=== PATIENT | female | born 1935 | race Caucasian/White ===

== ENCOUNTER 2022-10-30 13:47 | Outpatient (CLI) | payer MEDICARE, SELFPAY ==
[2022-10-30 19:50] LABS: Alanine Aminotransferase 20 U/L (6-35); Albumin Level 4.1 g/dL (3.5-5.1); Alkaline Phosphatase 121 U/L (38-126); Anion Gap 2 mmol/L (8-16); Aspartate Amino Transferase 36 U/L (14-36); Bilirubin,Total 0.4 mg/dL (0.2-1.3); Blood Urea Nitrogen 18 mg/dL (7-17); Calcium 8.6 mg/dL (8.4-10.2); Carbon Dioxide 33 mmol/L (22-30); Chloride 100 mmol/L (98-107); Estimated Glomerular Filt Rate > 60; Glucose 91 mg/dL (65-110); Potassium 4.3 mmol/L (3.4-5.0); Sodium 135 mmol/L (137-145)
[2022-10-30 20:01] LABS: Free T4 Free Thyroxine 1.57 ng/mL (0.78-2.19)
[2022-10-30 20:07] LABS: Thyroid Stimulating Hormone 0.907 uIU/mL (0.465-4.680)
== END 2022-10-30 13:48 | disposition home or self-care (01) ==
LOC: ANHGOSHLAB 13:50
PROVIDERS: PCP Internal Medicine Endocrinology, Diabetes & Metabolism; Visit Provider Family Medicine
DX: E07.9 Disorder of thyroid, unspecified (principal); Z79.899 Other long term (current) drug therapy
CPT/HCPCS: 36415; 80053; 84439; 84443

== ENCOUNTER → 2022-10-30 14:02 | Outpatient (CLI) | payer MEDICARE, SELFPAY ==
--- NOTE | ~2022-10-30 | XR_ITS ---
EXAMINATION: XR chest 2V DATE: 10/30/2022 14:20 INDICATION: Cough. TECHNIQUE: Frontal and lateral views of the chest were obtained. COMPARISON: Chest 2 views 04/25/2015 FINDINGS: There is mild scarring at the lung apices. There are airspace opacities in left lower lung zone. There is blunting of left posterior costophrenic angle. No pneumothorax. The heart size is norm al. There are changes of anterior fusion procedure in cervical spine. IMPRESSION: 1. Airspace opacities in left lower lung zone, consistent with atelectasis versus pneumonia. 2. Blunting of left posterior costophrenic angle, consistent with scarring versus tiny pleural effusi on. Reviewed, dictated and finalized at location E. IMPRESSION: 1. Airspace opacities in left lower lung zone, consistent with atelectasis vers us pneumonia. 2. Blunting of left posterior costophrenic angle, consistent with scarring vers us tiny pleural effusion.
== END ==
PROVIDERS: PCP Family Medicine; Visit Provider Family Medicine
DX: R05.9 Cough, unspecified (principal); R91.8 Other nonspecific abnormal finding of lung field
CPT/HCPCS: 71046

== ENCOUNTER → 2022-12-09 09:15 | Outpatient (CLI) | payer MEDICARE, SELFPAY ==
--- NOTE | ~2022-12-09 | XR_ITS ---
XR chest 2V 12/09/2022 09:29 Indication: Follow-up pneumonia Procedure: 2 view chest Comparison: 10/30/2022 and 04/25/2015 Findings: Heart size normal. There is left basilar atelectasis/scarring. There is scoliosis. No acute focal pneumonia, edema or effusion. No acute osseous abnormality. Impression: 1: No acute cardiopulmonary disease. 2: Stable left basilar atelectasis/scarring. Reviewed, dictated and finalized at location B. Impression: 1: No acute cardiopulmonary disease. 2: Stable left basilar atelectasis/scarring.
== END ==
PROVIDERS: PCP Family Medicine; Visit Provider Family Medicine
DX: J18.9 Pneumonia, unspecified organism (principal); J98.11 Atelectasis
CPT/HCPCS: 71046

== ENCOUNTER 2023-02-10 09:01 | Outpatient (CLI) | payer MEDICARE, SELFPAY | END 2023-02-10 09:02 | disposition home or self-care (01) | PROVIDERS: PCP Family Medicine; Visit Provider Otolaryngology | DX: Z46.1 Encounter for fitting and adjustment of hearing aid (principal) | CPT/HCPCS: 99199 ==

== ENCOUNTER 2023-03-29 09:03 | Outpatient (CLI) | payer MEDICARE, SELFPAY | END 2023-03-29 09:04 | disposition home or self-care (01) | LOC: ANHAUDIO 09:04 | PROVIDERS: PCP Family Medicine; Visit Provider Otolaryngology | DX: Z46.1 Encounter for fitting and adjustment of hearing aid (principal) | CPT/HCPCS: 92557; 92567 ==

== ENCOUNTER 2023-03-31 10:25 | Outpatient (CLI) | payer MEDICARE, SELFPAY ==
[2023-03-31 12:37] LABS: Hematocrit 39.5 % (37.0-47.0); Hemoglobin 12.4 g/dL (12.0-15.0); Mean Corpuscular HGB Conc 31.4 g/dl (32-36); Mean Corpuscular Hemoglobin 30.5 pg (26-34); Mean Corpuscular Volume 97.3 fl (80-100); Mean Platelet Volume 11.6 fl (7.4-10.4); Platelet Count Result 165 k/mm3 (150-375); Red Blood Count 4.06 M/mm3 (4.2-5.4); Red Cell Distribution Width 12.3 % (11.5-14.5); White Blood Count 3.4 K/mm3 (4.5-10.0)
[2023-03-31 12:49] LABS: Alanine Aminotransferase 16 U/L (6-35); Albumin Level 3.9 g/dL (3.5-5.1); Alkaline Phosphatase 97 U/L (38-126); Anion Gap 4 mmol/L (8-16); Aspartate Amino Transferase 46 U/L (14-36); Bilirubin,Total 0.6 mg/dL (0.2-1.3); Blood Urea Nitrogen 16 mg/dL (7-17); Calcium 8.4 mg/dL (8.4-10.2); Carbon Dioxide 29 mmol/L (22-30); Chloride 103 mmol/L (98-107); Cholesterol 177 mg/dL (0-200); Estimated Glomerular Filt Rate > 60; Glucose 78 mg/dL (65-110); HDL Direct 66 mg/dL; Potassium 3.9 mmol/L (3.4-5.0); Sodium 136 mmol/L (137-145); Triglycerides 63 mg/dL (<150)
[2023-03-31 13:00] LABS: LDL Cholesterol Direct 85 mg/dL
[2023-03-31 13:15] LABS: Thyroid Stimulating Hormone 0.948 uIU/mL (0.465-4.680)
== END 2023-03-31 10:26 | disposition home or self-care (01) ==
LOC: ANHGOSHLAB 10:27
PROVIDERS: PCP Family Medicine; Visit Provider Nurse Practitioner
DX: E78.5 Hyperlipidemia, unspecified (principal); E07.9 Disorder of thyroid, unspecified; E55.9 Vitamin D deficiency, unspecified
CPT/HCPCS: 36415; 80053; 80061; 82306; 84443; 85027

== ENCOUNTER 2023-04-22 09:45 | Outpatient (CLI) | payer MEDICARE, SELFPAY ==
--- NOTE | 2023-04-22 09:55 | ECHO_ITS ---
Patient Info Name: Maryjane Blanco Age: 87 years : 1935 Gender: Female Ht: 65 in Wt: 100 lbs BSA: 1.43 m2 HR: 65 bpm BP: 163 / 83 mmHg Technical Quality: Good Exam Date: 04/22/2023 9:59 AM Exam Location: Echo Lab Patient Status: Outpatient Admit Date: 04/22/2023 Staff Ordering Physician: Christelle Santacruz Attending Provider: Christelle Santacruz Referring Physician: Neeta GRANDA; Exam Type: CA echo doppler color flow Study Info Indications R60.9 - Edema, unspecified Complete two-dimensional, color flow and Doppler transthoracic echocardiogram is performed. Summary 1. Complete two-dimensional, color flow and Doppler transthoracic echocardiogram is performed. 2. Left ventricular chamber dimension is moderately enlarged. 3. Entire apex is akinetic. Mid to apical segments circumferentially is hypokinetic. Basal segments have normal contractility. This is suggestive of Takotsubo cardiomyopathy. 4. No apical thrombus. 5. Left ventricular systolic function is moderately reduced, estimated at 35-40%. 6. The left ventricular diastolic function is grade I diastolic dysfunction. 7. E/e' 18 is elevated. 8. Left atrial chamber dimension is mildly enlarged. 9. There is mild aortic valve sclerosis. 10. There is trace aortic valve regurgitation. 11. The mitral valve has moderately calcified annulus. 12. There is trace mitral valve regurgitation. 13. There is mild to moderate tricuspid valve regurgitation. 14. No pulmonary hypertension, estimated pulmonary arterial systolic pressure is 30 mmHg. 15. There is trivial right sided pericardial effusion. Left Ventricle E/e' 18 is elevated. Entire apex is akinetic. Mid to apical segments circumferentially is hypokinetic. Basal segments have normal contractility. This is suggestive of Takotsubo cardiomyopathy. No apical thrombus. Left ventricular chamber dimension is moderately enlarged. Left ventricular systolic function is moderately reduced, estimated at 35-40%. The left ventricular diastolic function is grade I diastolic dysfunction. Right Ventricle Right ventricular chamber dimension is normal. Right ventricular systolic function is normal. Left Atria Left atrial chamber dimension is mildly enlarged. Right Atria Right atrial chamber dimension is normal. Aortic Valve The aortic valve is trileaflet. There is mild aortic valve sclerosis. There is no aortic valve stenosis. There is trace aortic valve regurgitation. Pulmonic Valve There is no pulmonic regurgitation. Mitral Valve The mitral valve has moderately calcified annulus. There is no mitral valve stenosis. There is trace mitral valve regurgitation. Tricuspid Valve There is mild to moderate tricuspid valve regurgitation. No pulmonary hypertension, estimated pulmonary arterial systolic pressure is 30 mmHg. Pericardium/Pleural There is trivial right sided pericardial effusion. Inferior Vena Cava Normal inferior vena cava with >50% collapse upon inspiration consistent with normal right atrial pressure, 5 mmHg. Aorta The aortic root size at the sinus of Valsalva is normal. Left Ventricular Outflow Tract Name Value Normal LVOT 2D LVOT Diameter 2.0 cm LVOT Doppler LVOT Peak Gradient
== END 2023-04-22 09:46 | disposition home or self-care (01) ==
LOC: ANHCARD 09:46
PROVIDERS: PCP Family Medicine; Visit Provider Nurse Practitioner
DX: R93.1 Abnormal findings on diagnostic imaging of heart and coronary circulation (principal); I35.8 Other nonrheumatic aortic valve disorders; I35.1 Nonrheumatic aortic (valve) insufficiency; I34.0 Nonrheumatic mitral (valve) insufficiency; I07.1 Rheumatic tricuspid insufficiency; I31.39 Other pericardial effusion (noninflammatory); I34.81 Nonrheumatic mitral (valve) annulus calcification
CPT/HCPCS: 93306

== ENCOUNTER 2023-06-03 10:29 | Outpatient (CLI) | payer MEDICARE, SELFPAY ==
[2023-06-03 12:33] LABS: Anion Gap 3 mmol/L (8-16); Blood Urea Nitrogen 25 mg/dL (7-17); Calcium 8.8 mg/dL (8.4-10.2); Carbon Dioxide 32 mmol/L (22-30); Chloride 100 mmol/L (98-107); Estimated Glomerular Filt Rate > 60; Glucose 96 mg/dL (65-110); Potassium 4.4 mmol/L (3.4-5.0); Sodium 135 mmol/L (137-145)
== END 2023-06-03 10:30 | disposition home or self-care (01) ==
PROVIDERS: PCP Family Medicine
DX: I42.9 Cardiomyopathy, unspecified (principal)
CPT/HCPCS: 36415; 80048

== ENCOUNTER 2023-06-17 15:43 | Emergency (ER) | payer MEDICARE, SELFPAY ==
--- NOTE | ~2023-06-17 | CT_ITS ---
EXAMINATION: CTA UE RT DATE: 06/17/2023 19:17 INDICATION: Decreased peripheral pulses status post cardiac catheterization TECHNIQUE: Computed tomographic angiography (CTA) of the right upper extremity was performed with 100 mL Omnipque-350 intravenous contrast. Maximum intensity projection 3D-reconstructions of the aorta a nd other arteries were constructed by the technologist on a separate workstation. The dose-length pro duct (DLP) was 261.34 mGy-cm. Automated exposure control and iterative reconstruction technique were employed. COMPARISON: None. FINDINGS: The upper right extremity arterial structures appear to be intact. No contrast extravasatio n is identified. The radial and ulnar arteries are patent at the wrist. IMPRESSION: 1. Unremarkable right upper extremity CTA. Reviewed, dictated and finalized at location F. ING EFFICIENCY COURSE DIRECTOR
[2023-06-17 15:55] VITALS: BP 138/81; PULSE 62; RESP 16; TEMP 36.2; O2SAT 100
--- NOTE | 2023-06-17 17:38 | ED.SKABFB ---
HPI - Skin/Abscess/Foreign Bdy General Chief complaint: Skin/Abscess/Foreign Body <Mireille Dumont PA-C - Last Filed: 06/17/23 21:12> Stated complaint: sent by cardiology <NAHOMI Villanueva Last Filed: 06/17/23 21:12> Time Seen by Provider: 06/17/23 17:09 <NAHOMI Villanueva Last Filed: 06/17/23 21:12> Source: patient <Mireille Dumont PA-C - Last Filed: 06/17/23 21:12> Mode of arrival: ambulatory <NAHOMI Villanueva Last Filed: 06/17/23 21:12> Limitations: no limitations <Mireille Dumont PA-C - Last Filed: 06/17/23 21:12> History of Present Illness HPI narrative: This is a 87 year old female that presents to the ER for pain and swelling at recent cardiac cath site. Reports she had a cardiac cath with her research instrumentation technician at [facility] one week ago. She feels a palpable nodule at the insertion area. Reports bruising and some discomfort to the area as well. Denies decreased ROM or numbness. <NAHOMI Villanueva Last Filed: 06/17/23 21:12> Related Data Home medications: Home Medications Medication Instructions Recorded Confirmed Arteriozyme See Rx Instructions PO .COMPLEX 10/30/22 06/24/23 ascorbic acid (vitamin C) 1,000 mg 1 g PO DAILY 10/30/22 06/24/23 capsule levothyroxine 75 mcg capsule 75 mcg PO DAILY 10/30/22 06/24/23 prednisolone acetate 1 % eye 1 drp RIGHT EYE DAILY 10/30/22 06/24/23 drops,suspension <NAHOMI Villanueva Last Filed: 06/17/23 21:12> Allergies/Adverse reactions: Allergies Allergy/AdvReac Type Severity Reaction Status Date / Time acyclovir Allergy Mild Nausea and Verified 06/24/23 09:58 Vomiting <NAHOMI Villanueva Last Filed: 06/17/23 21:12> Review of Systems Review of Systems: CONSTITUTIONAL: Denies fever SKIN: Denies erythema MUSCULOSKELETAL: Denies joint pain, or myalgia. NEUROLOGIC: Denies numbness, or weakness. <Mireille Dumont PA-C - Last Filed: 06/17/23 21:12> All systems reviewed & are unremarkable except as noted in HPI and below <Mireille Dumont PA-C - Last Filed: 06/17/23 21:12> PMFSH Past Medical History Medical History: Medical History Glaucoma History of hypothyroidism <Mireille Dumont PA-C - Last Filed: 06/17/23 21:12> Family History Family History: Family History Father Hypertension Grandparent Diabetes mellitus <Mireille Dumont PA-C - Last Filed: 06/17/23 21:12> Social History Social History: Social History Smoking status: Never smoker Alcohol intake: current Substance use: never Substance use type: does not use Lack of Transportation: No Lack of Food: Never True Current Housing: I Have Housing Concerned About Future Housing: No Difficulty Paying Gas/Electric Bills: No Difficulty Paying for Meds: No Currently Unemployed: No Education: Master's Degree or Higher Difficulty w/ Childcare or Family Care: No <Mireille Dumont PA-C - Last Filed: 06/17/23 21:12> Exam Narrative: GENERAL: Well-appearing, well-nourished, and in no acute distress. HEAD: Normocephalic, atraumatic. EYES: EOMI. CHEST: No respiratory distress. HEART: Regular rate EXTREMITIES: Normal range of motion. No edema or erythema. Normal radial pulse. Normal sensation. Moderate bruising to the right forearm SKIN: Warm, dry, no rash. NEURO: No focal deficits. Alert and oriented x3. PSYCH: Normal mood and affect <Mireille Dumont PA-C - Last Filed: 06/17/23 21:12> Course Course Emergency Course: Patient updated on workup and agrees with plan of care <Mireille Dumont PA-C - Last Filed: 06/17/23 21:12> Vital Signs Vital signs: Vital Signs Temperature 97.2 F L 06/17/23 15:55 Pulse Rate 62 06/17/23 15:55 Respiratory Rate 16 06/17/23 15:55 Blood Pres
[2023-06-17 18:34] LABS: Basophils Percent Auto 0.7 % (0.2-1.2); Eosinophils Percent Auto 0.7 % (0-4.4); Hematocrit 39.7 % (37.0-47.0); Hemoglobin 12.7 g/dL (12.0-15.0); Immature Granulocyte Absolute 0.02 K/mm3 (0.00-0.031); Immature Granulocyte Percent A 0.3 % (0-0.5); Lymphocytes Percent Auto 19.6 % (18.3-44.2); Mean Corpuscular Hemoglobin 30.2 pg (26-34); Mean Corpuscular Volume 94.3 fl (80-100); Mean Platelet Volume 10.6 fl (7.4-10.4); Monocytes Absolute Auto 0.6 K/mm3 (0.1-0.6); Monocytes Percent Auto 9.8 % (2.6-8.5); Neutrophils Absolute Auto 4.2 K/mm3 (1.3-6.7); Neutrophils Percent Auto 68.9 % (45.5-73.1); Platelet Count Result 176 k/mm3 (150-375); Red Blood Count 4.21 M/mm3 (4.2-5.4); Red Cell Distribution Width 11.9 % (11.5-14.5); White Blood Count 6.1 K/mm3 (4.5-10.0)
[2023-06-17 18:45] LABS: Prothrombin Time 13.3 Seconds (11.1-14.7)
[2023-06-17 18:46] LABS: Partial Thromboplastin Time 36.4 SECONDS (22.3-36.8)
[2023-06-17 18:48] LABS: Anion Gap 4 mmol/L (8-16); Blood Urea Nitrogen 18 mg/dL (7-17); Calcium 8.7 mg/dL (8.4-10.2); Carbon Dioxide 26 mmol/L (22-30); Chloride 102 mmol/L (98-107); Estimated CRCL calculation 47 ml/min; Estimated Glomerular Filt Rate > 60; Glucose 88 mg/dL (65-110); Potassium 4.2 mmol/L (3.4-5.0); Sodium 132 mmol/L (137-145)
[2023-06-17 20:05] VITALS: BP 131/85; PULSE 67; RESP 14; O2SAT 99
== END 2023-06-17 21:19 | disposition home or self-care (01) ==
PROVIDERS: Emergency Provider Physician Assistant; PCP Family Medicine
DX: L76.32 Postprocedural hematoma of skin and subcutaneous tissue following other procedure (principal); H40.9 Unspecified glaucoma; E03.9 Hypothyroidism, unspecified
CPT/HCPCS: 36415; 73206; 80048; 85025; 85610; 85730; 99284; Q9967

== ENCOUNTER 2023-06-22 08:42 | Outpatient (CLI) | payer MEDICARE, SELFPAY ==
--- NOTE | 2023-06-22 | ECHO_ITS ---
Patient Info Name: Maryjane Blanco Age: 87 years : 1935 Gender: Female Ht: 65 in Wt: 100 lbs BSA: 1.43 m2 HR: 61 bpm BP: 136 / 73 mmHg Heart Rhythm: Sinus Rhythm Technical Quality: Good Exam Date: 06/22/2023 9:09 AM Exam Location: Echo Lab Patient Status: Outpatient Admit Date: 06/22/2023 Staff Ordering Physician: Jeannette, Sarahi Gil Substation Wireman: Attending Provider: Jeannette, Sarahi Gil Referring Physician: UNKNOWN, Jeannette; Exam Type: CA echo doppler color flow Study Info Indications I42.8 - Other cardiomyopathies Complete two-dimensional, color flow and Doppler transthoracic echocardiogram is performed. Summary 1. Complete two-dimensional, color flow and Doppler transthoracic echocardiogram is performed. 2. Left ventricular chamber dimension is normal. 3. Left ventricular systolic function is normal, estimated at 65-70%. 4. The left ventricular diastolic function is grade I diastolic dysfunction. 5. Right ventricular systolic function is normal. 6. 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 7. There is mild tricuspid valve regurgitation. 8. There is small pericardial effusion. Left Ventricle Left ventricular chamber dimension is normal. Left ventricular systolic function is normal, estimated at 65-70%. The left ventricular diastolic function is grade I diastolic dysfunction. Global longitudinal strain is normal at -21 %. Right Ventricle Right ventricular chamber dimension is normal. Right ventricular systolic function is normal. Left Atria Left atrial chamber dimension is normal. Right Atria Right atrial chamber dimension is normal. Atrial Septum Intact interatrial septum visualized by color flow imaging. 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 The aortic valve is trileaflet. There is no aortic valve stenosis. There is no aortic valve regurgitation. There is moderate aortic valve calcification. Pulmonic Valve The pulmonic valve is not well visualized. There is trace pulmonic regurgitation. Mitral Valve There is trace mitral valve regurgitation. The mitral valve annulus is moderately calcified. Tricuspid Valve There is mild tricuspid valve regurgitation. Pericardium/Pleural There is small pericardial effusion. Inferior Vena Cava Normal inferior vena cava with >50% collapse upon inspiration consistent with normal right atrial pressure, 3 mmHg. Aorta The aortic root size at the sinus of Valsalva is normal. Left Ventricular Outflow Tract Name Value Normal LVOT 2D LVOT Diameter 2.0 cm LVOT Doppler LVOT Peak Gradient 3 mmHg LVOT Mean Gradient 2 mmHg LVOT VTI 22 cm LVOT VTI/AV VTI Ratio 0.7 LVOT Stroke Volume 71 ml LVOT CO 3.7 l/min LVOT CI 2.6 l/min/m2 Pulmonic Valve Name Value Normal PV Doppler
== END 2023-06-22 08:43 | disposition home or self-care (01) ==
PROVIDERS: PCP Family Medicine
DX: R06.02 Shortness of breath (principal); R93.1 Abnormal findings on diagnostic imaging of heart and coronary circulation; I42.9 Cardiomyopathy, unspecified; I36.1 Nonrheumatic tricuspid (valve) insufficiency; I31.39 Other pericardial effusion (noninflammatory)
CPT/HCPCS: 93306

== ENCOUNTER 2023-11-01 12:50 | Emergency (ER) | payer MEDICARE, SELFPAY ==
--- NOTE | ~2023-11-01 | XR_ITS ---
Clinical Indication: Cough PA and lateral views of the chest: Comparison: 12/09/2022 Findings: There is COPD pattern of the lungs. Stable linear scarring left lung base. No acute pulmona ry abnormality evident.. Cardiomediastinal silhouette is within normal limits. Bones and soft tissue s are unremarkable. Impression: COPD and stable linear scarring left lung base. Reviewed, dictated and finalized at location . Impression: COPD and stable linear scarring left lung base.
[2023-11-01 13:04] VITALS: BP 137/77; PULSE 62; RESP 16; TEMP 37.2; O2SAT 98
--- NOTE | 2023-11-01 13:16 | ED.URI ---
HPI - URI/Sore Throat General Chief Complaint: Upper Respiratory Infection Stated Complaint: Sore Throat Time Seen by Provider: 11/01/23 13:02 Source: patient, RN notes reviewed and old records reviewed Mode of arrival: ambulatory Limitations: no limitations History of Present Illness HPI Narrative: Patient presents today with acute on chronic cough. States she has been coughing since she had COVID a few years ago, but symptoms have worsened over the past week. Her cough is occasionally productive. She also reports some rhinorrhea. Denies shortness of breath or fever. States she has been evaluated by her PCP for this chronic cough a few years ago and was told she had some postnasal drainage. She has been taking vitamin-C without relief. Denies history of asthma or COPD. She is a nonsmoker. Related Data Home Medications Medication Instructions Recorded Confirmed Arteriozyme See Rx Instructions PO .COMPLEX 10/30/22 11/01/23 ascorbic acid (vitamin C) 1,000 mg 1 g PO DAILY 10/30/22 11/01/23 capsule prednisolone acetate 1 % eye 1 drp RIGHT EYE DAILY 10/30/22 11/01/23 drops,suspension furosemide 20 mg tablet 20 mg PO DAILY 09/28/23 11/01/23 losartan 25 mg tablet 12.5 mg PO DAILY 09/28/23 11/01/23 dorzolamide-timolol (PF) 2 %-0.5 % 1 drp EACH EYE BID 11/01/23 11/01/23 eye drops in a dropperette Allergies Allergy/AdvReac Type Severity Reaction Status Date / Time acyclovir Allergy Mild Nausea and Verified 11/01/23 13:00 Vomiting Review of Systems Review of Systems: CONSTITUTIONAL: Denies body aches, fever, chills, or sweats. EYES: Denies visual changes, redness, or discharge. ENT: Denies congestion, sore throat, or otalgia.+ rhinorrhea CARDIOVASCULAR: Denies chest pain, palpitations, or edema. RESPIRATORY: Denies dyspnea.+ cough GASTROINTESTINAL: Denies abdominal pain, nausea, vomiting, or diarrhea. GENITOURINARY: Denies dysuria or hematuria. SKIN: Denies rash, itching, or wounds. MUSCULOSKELETAL: Denies back pain, joint pain, or myalgia. NEUROLOGIC: Denies headache, numbness, tingling, or weakness. PSYCH: Denies depression or anxiety. PMFSH Past Medical History Medical History Glaucoma History of hypothyroidism Family History Family History Father Hypertension Grandparent Diabetes mellitus Social History Social History Smoking status: Former smoker (for 1 year) Alcohol intake: current Substance use: never Substance use type: does not use Lack of Transportation: No Lack of Food: Never True Current Housing: I Have Housing Concerned About Future Housing: No Difficulty Paying Gas/Electric Bills: No Difficulty Paying for Meds: No Currently Unemployed: No Education: Master's Degree or Higher Difficulty w/ Childcare or Family Care: No Comments At time of signature, I have reviewed and agree with nursing past medical, surgical, social and family history unless otherwise noted. Please see nursing chart for further information. There is no relevant family history pertinent to the presenting complaint Exam Narrative: GENERAL: Well-appearing, well-nourished, and in no acute distress. HEAD: Normocephalic, atraumatic. EYES: EOMI. No redness or drainage. Conjunctivae normal. ENT: Mucous membranes pink and moist. Nares clear. No rhinorrhea. Throat normal. Uvula midline. Wears hearing aids NECK: Normal AROM. Supple. No lymphadenopathy. CHEST: No respiratory distress. Slight crackle in the left lower lobe, otherwise clear HEART: Regular rate and rhythm. No murmur appreciated. Normal peripheral pulses. EXTREMITIES: Normal range of motion. No edema. SKIN: Warm, dry, no rash. Capillary refill normal. Normal skin turgor. NEURO: No focal deficits. Alert and oriented x3. Gait steady. PSYC
== END 2023-11-01 13:41 | disposition home or self-care (01) ==
PROVIDERS: Emergency Provider Nurse Practitioner; PCP Family Medicine
DX: J40 Bronchitis, not specified as acute or chronic (principal); Z87.891 Personal history of nicotine dependence; H40.9 Unspecified glaucoma; E03.9 Hypothyroidism, unspecified
CPT/HCPCS: 71046; 99213; G0463

== ENCOUNTER 2023-12-24 08:40 | Outpatient (CLI) | payer MEDICARE, SELFPAY ==
--- NOTE | ~2023-12-24 | XR_ITS ---
MODIFIED ESOPHAGRAM HISTORY: Dysphagia. TECHNIQUE: Modified barium esophagram was performed on 12/24/2023. I administered fluoroscopy and perfo rmed the exam with speech pathologist. Patient was seated for lateral fluoroscopic imaging for inges tion of thin liquids, pudding, solids and quantified amounts, followed by thin liquids in uncontrolle d amounts. This was recorded on tape. A single fluoroscopic spot image was also recorded. The DAP for this procedure was 1.781 Gycm2. The amount of fluoroscopy time used during this procedure was 3.0 mi nutes. FINDINGS: Oral stage: Adequate function. Pharyngeal stage: Reduced laryngeal elevation and abduction. Reduced tongue base retraction and phary ngeal squeeze. There is vallecular residue. There is laryngeal penetration and aspiration. Cervical/esophageal stage: Adequate function. IMPRESSION: Pharyngeal dysphagia with laryngeal penetration and aspiration. Please correlate with sp eech pathologist findings and specific feeding recommendations. Reviewed, dictated and finalized at location A. IMPRESSION: Pharyngeal dysphagia with laryngeal penetration and aspiration. Pl ease correlate with speech pathologist findings and specific feeding recommenda tions.
--- NOTE | 2023-12-24 13:57 | REHSTMBS ---
Assessment and note entered by Courtney Huang, PSYCHOLOGIST ENGINEERING Modified Barium Swallow Evaluation Feeding Type Recommended Oral Food Consistency Regular, Level 7 Liquid Consistency Thin (0) Treatment Recommendations Effortful Swallow,Laryngeal Elevation Exerc, Sarika Maneuver,Supraglottic Swallow,Tongue Base Exercise,Vocal Fold Adduction Exer ST Clinical Summary MODIFIED BARIUM SWALLOW STUDY This patient was seen for a Modified Barium Swallow study at the request of her physician. Patient reports that she had neck surgery approximately twenty years ago, and that she noticed swallowing problems began after that surgery. She states that she feels she gets choked on solid foods, using sandwich meat/bread as an example, and that her has had to use the Heimlich maneuver to clear her airway. She denies difficulty swallowing liquids and denied coughing during meals. Patient admitted to recently having bronchitis that causes her to cough. When asked about her soft voice/low vocal volume, she stated she always has been soft spoken. Patient was viewed in the lateral position to the level of C5/C6. She was presented with small amounts of thin liquid contrast medium, and then uncontrolled thin liquid per cup, pudding mixed with semi-solid contrast medium, and then fruit cocktail pieces and neal cracker pieces both coated with the semi-solid mixture. Patient exhibited consistent trace penetration into the airway with aspiration on uncontrolled thin liquids with additional trace penetration reaching the entrance to the airway on the pudding consistency. Patient did feel the liquid penetration, causing a reflexive cough but this did not fully clear the airway. Throughout this evaluation patient exhibited significant vallecular residue with minimal clearing during the current swallow. The cricopharyngeal/upper esophageal area appeared slightly different than average but unsure if that is due to the surgery. Impairments: Oral Stage: None. Pharyngeal Stage:
== END 2023-12-24 08:41 | disposition home or self-care (01) ==
LOC: ANHIMG 08:42
PROVIDERS: PCP Family Medicine; Visit Provider Nurse Practitioner Family
DX: R13.13 Dysphagia, pharyngeal phase (principal)
CPT/HCPCS: 92611

== ENCOUNTER 2024-01-29 12:56 | Outpatient (CLI) | payer MEDICARE, SELFPAY ==
[2024-01-29 13:33] LABS: Hematocrit 37.5 % (37.0-47.0); Hemoglobin 12.3 g/dL (12.0-15.0); Mean Corpuscular HGB Conc 32.8 g/dl (32-36); Mean Corpuscular Hemoglobin 31.4 pg (26-34); Mean Corpuscular Volume 95.7 fl (80-100); Mean Platelet Volume 10.9 fl (7.4-10.4); Platelet Count Result 169 k/mm3 (150-375); Red Blood Count 3.92 M/mm3 (4.2-5.4); Red Cell Distribution Width 12.8 % (11.5-14.5); White Blood Count 4.5 K/mm3 (4.5-10.0)
[2024-01-29 13:48] LABS: Alanine Aminotransferase 13 U/L (6-35); Albumin Level 3.9 g/dL (3.5-5.1); Alkaline Phosphatase 127 U/L (38-126); Anion Gap 9 mmol/L (4-12); Aspartate Amino Transferase 30 U/L (14-36); Bilirubin,Total 0.7 mg/dL (0.2-1.3); Blood Urea Nitrogen 19 mg/dL (7-17); Calcium 8.7 mg/dL (8.4-10.2); Carbon Dioxide 29 mmol/L (22-30); Chloride 99 mmol/L (98-107); Cholesterol 175 mg/dL (0-200); Estimated Glomerular Filt Rate > 60; Glucose 77 mg/dL (65-110); HDL Direct 68 mg/dL; Potassium 3.9 mmol/L (3.4-5.0); Sodium 137 mmol/L (137-145); Triglycerides 70 mg/dL (<150)
[2024-01-29 13:58] LABS: LDL Cholesterol Direct 81 mg/dL
[2024-01-29 14:04] LABS: Free T4 Free Thyroxine 1.86 ng/mL (0.78-2.19); Vitamin D 25 Hydroxy 46.7 ng/mL
[2024-01-29 14:18] LABS: Thyroid Stimulating Hormone 0.117 uIU/mL (0.465-4.680)
== END 2024-01-29 12:57 | disposition home or self-care (01) ==
LOC: ANHLAB 13:00
PROVIDERS: PCP Family Medicine; Visit Provider Nurse Practitioner
DX: E55.9 Vitamin D deficiency, unspecified (principal); R60.9 Edema, unspecified; I51.9 Heart disease, unspecified
CPT/HCPCS: 36415; 80053; 80061; 82306; 84439; 84443; 85027

== ENCOUNTER 2024-03-02 13:15 | Outpatient (RCR) | payer MEDICARE, SELFPAY ==
--- NOTE | 2024-02-02 10:52 | STOPEVAL1 ---
Assessment and note entered by Courtney Huang, STATE DIRECTOR Reported Pain Level Pain Score 0: Self Report Assessment ST Clinical Summary This patient is being seen today as a follow up to a Modified Barium Swallow study that was performed on December 24, 2023 which revealed penetration on thin liquids and significant vallecular residue after swallowing. Direct Speech Therapy was recommended at that time for strengthening exercises and instruction of safe swallowing strategies. At that time, patient reported: history of neck surgery approximately twenty years ago, and that she noticed swallowing problems began after that surgery. She stated that she feels she gets choked on solid foods, using sandwich meat/bread as an example, and that her has had to use the Heimlich maneuver to clear her airway. She denied difficulty swallowing liquids and denied coughing during meals. Patient admitted to recently having bronchitis that causes her to cough. When asked about her soft voice/low vocal volume, she stated she always has been soft spoken. She reports that in spite of history of softer voice, there have been times when her firends and relatives have told her she is speaking so softly, they cannot hear her which is not normal for her. Today the patient was presented with water only and no signs of penetration were noted. She had been instructed in the use of head flexion and she stated that she has used head flexion at times but not consistently. Patient was instructed in the use of safe swallowing techniques and head flexion. Patient was also instructed in the use of three initial swallowing strengthening exercises, one laryngeal elevation exercises, one laryngeal adduction exercise, and one base of tongue retraction exercise. She voiced and demonstrated good understanding and agreed to continue. Patient's voice was also evaluated and she exhibited moderate dysphonia characterized as pitch breaks and hoarse voice during sustaining of ah sound; able to sustain x6 seconds. Pitch range and vocal loudness were within normal limits. Results of Modified Barium Swallow study and today 's voice evaluation indicate patient should consider direct Speech Therapy. Patient is agreeable to twice weekly for 3-4 weeks with therapy addressing swallowing strengthening exercises and tasks to improve voice quality. Patient was in agreement with plan of care. Thank you for this referral. Plan of Care Interventions Treatment of Swallowing D,Treatment of Voice ST Services Indicated Yes Treatment Frequency and 2x/week x 8 visits. Duration These treatments will address the objective and functional deficits as defined above. The patient will be advanced safely and appropriately in order for the patient to progress towards his/her prior level of function. Additional exercises will be introduced and as well as a comprehensive home exercise program upon discharge, if needed, ?to ensure carryover of functional gains achieved in the clinic. This treatment plan has been reviewed and agreement upon by the patient.
--- NOTE | 2024-02-02 10:53 | STOPEVAL1 ---
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 Direct Speech Therapy was recommended at that time for strengthening exercises and instruction of safe swallowing strategies. At that time, patient reported: history of neck surgery approximately twenty years ago, and that she noticed swallowing problems began after that surgery. She stated that she feels she gets choked on solid foods, using sandwich meat/bread as an example, and that her has had to use the Heimlich maneuver to clear her airway. She denied difficulty swallowing liquids and denied coughing during meals. Patient admitted to recently having bronchitis that causes her to cough. When asked about her soft voice/low vocal volume, she stated she always has been soft spoken. She reports that in spite of history of softer voice, there have been times when her friends and relatives have told her she is speaking so softly, they cannot hear her which is not normal for her. Today the patient was presented with water only and no signs of penetration were noted. She had been instructed in the use of head flexion and she stated that she has used head flexion at times but not consistently. Patient was instructed in the use of safe swallowing techniques and head flexion. Patient was also instructed in the use of three initial swallowing strengthening exercises, one laryngeal elevation exercises, one laryngeal adduction exercise, and one base of tongue retraction exercise. She voiced and demonstrated good understanding and agreed to continue. Patient's voice was also evaluated and she exhibited moderate dysphonia characterized as pitch breaks and hoarse voice during sustaining of ah sound; able to sustain x6 seconds. Pitch range and vocal loudness were within normal limits. Results of Modified Barium Swallow study and today's voice evaluation indicate patient should consider direct Speech Therapy. Patient is agreeable to twice weekly for 3-4 weeks with therapy addressing swallowing strengthening exercises and tasks to improve voice quality. Patient was in agreement with plan of care. Thank you for this referral. Plan of Care Interventions Treatment of Swallowing D,Treatment of Voice ST Services Indicated Yes Treatment Frequency and 2x/week x 8 visits. Duration These treatments will address the objective and functional deficits as defined above. The patient will be advanced safely and appropriately in order for the patient to progress towards his/her prior level of function. Additional exercises will be introduced and as well as a comprehensive home exercise program upon discharge, if needed, ?to ensure carryover of functional gains achieved in the clinic. This treatment plan has been reviewed and agreement upon by the patient.
--- NOTE | 2024-02-04 08:51 | PCSTNOTE ---
The patient treatment was not able to be completed on 02/04/24 due to patient not feeling well today. Will plan to continue treatment per plan of care.
--- NOTE | 2024-02-04 08:55 | OPREHPOC ---
Outpatient Therapy Plan of Care This is a Multidisciplinary Plan of Care that may contain components documented by all disciplines (PT, OT, and ST.) ST Problem 1 ST Problem #[address] Goal 1 Goal / Goal Update 1. Therapist will provide patient with safe swallowing techniques, diet and liquid consistencies, options for safe swallowing, and compensatory strategies related to safe swallowing . 2. Patient will voice understanding of safe swallowing techniques, diet and liquid consistencies, options for safe swallowing, and compensatory strategies related to safe swallowing . Target Visit [address] Problem #[address] Goal 1 Goal / Goal Update 1. The patient will receive a copy of evidence- based exercises for swallow improvement to complete 10x2/day outside of therapy visits. 2. The patient will complete laryngeal adduction exercises 10 repetitions per visit to improve airway closure and reduce instances of aspiration as evidenced on repeat MBS when appropriate. 3. Patient will complete laryngeal elevation exercises 10 reps each with good strength to reduce laryngeal penetration and/or pyriform sinus residue by improving epiglottal inversion and airway protection. 4. Patient will complete base of tongue retraction, hard effortful swallows, and swallows with chin tuck against resistance exercises 10 reps each with good strength in order to reduce/eliminate instances of aspiration during the swallow by squeezing of the base of tongue in order to invert the epiglottis and close the airway evidenced on repeat MBS when appropriate. Target Visit [address] Problem #[address] Goal 1 Goal / Goal Update 1. Patient will participate in tasks to increase the strength of the vocal cords while maintaining appropriate use of vocal cords/avoiding over-use or abusive voice behaviors 90% of the time in order to improve the quality of the voice to avoid pitch breaks and maintain appropriate loudness. Target Visit 9
--- NOTE | 2024-03-02 16:37 | STOPDC ---
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 Patient was instructed in safe swallowing techniques, swallowing strengthening exercises including laryngeal adduction, laryngeal elevation, base of tongue retraction, hard, effortful swallows, Masaka procedure, Sarika maneuver, and swallows with chin tuck against resistance. Patient exhibited good ability to complete exercises and voiced that she was completing them at home. By time of discharge, she was reporting no concerns with getting choked or tickled when consuming food/liquid, and she stated both she and her felt her voice was louder, was reporting that he was able to hear her better by time of discharge. Of note is when patient spoke at a slightly higher pitch, 2-3 steps up a scale, her voice cleared and no longer sounded raspy however her first inclination is to speak at the lower pitch level/range which contributed to raspy vocal quality. By time of discharge patient was demonstrating improved ability to speak at the higher level which reduced the raspy, hoarse vocal quality observed at the beginning of treatment. She was discharged today with home program in place, good ability to complete all exercises, and satisfaction with treatment program. No further ST indicated at this time. Patient is welcome to return at any time she has concerns with her swallowing/voicing skills. Plan of Care ST Services Indicated Yes
== END 2024-03-10 11:06 | disposition home or self-care (01) ==
LOC: ANHST 13:15
PROVIDERS: PCP Family Medicine; Visit Provider Nurse Practitioner Family
DX: R13.10 Dysphagia, unspecified (principal)
CPT/HCPCS: 92526; 92610

== ENCOUNTER 2024-03-28 11:01 | Outpatient (RCR) | payer MEDICARE, SELFPAY | END 2024-03-28 23:59 | disposition home or self-care (01) | LOC: ANHAUDIO 11:01 | PROVIDERS: PCP Family Medicine | DX: Z46.1 Encounter for fitting and adjustment of hearing aid (principal) | CPT/HCPCS: 92592 ==

== ENCOUNTER 2024-03-31 09:14 | Outpatient (CLI) | payer MEDICARE, SELFPAY ==
[2024-03-31 14:11] LABS: Free T4 Free Thyroxine 1.42 ng/dL (0.78-2.19)
== END 2024-03-31 09:15 | disposition home or self-care (01) ==
PROVIDERS: PCP Family Medicine; Visit Provider Nurse Practitioner
DX: E07.9 Disorder of thyroid, unspecified (principal)
CPT/HCPCS: 36415; 84439; 84443

== ENCOUNTER 2024-05-31 09:00 | Outpatient (CLI) | payer MEDICARE, SELFPAY ==
--- OUTSIDE RECORDS SUMMARY | 2024-05-31 09:39 | XMS_ITS | Clinical Summary ---
Author Organization [facility] Address [address] [place] [address] Phone Care Team Providers Care Jewellery Designer Name Role Phone Roxann Albarran Kristal Primary Care Provider [phone] Allergies Active Allergy Reactions Criticality Noted Date Comments Acyclovir Nausea only Low 09/27/2017 GI distress Wheat Headache Low 12/17/2022 Upset stomach Medications vit O-hltateangx-a ioflavonoids 500-100-100 mg tabletIndicati ons:supplement Take 1 tablet by mouth every morning Active levothyroxine (SYNTHROID) 75 mcg tablet Take 1 tablet (75 mcg total) by mouth daily 90 tablet 3 3 Active Additional Information Patient taking differently:75 mcg oralDaily before breakfast, Indications: hypothyroidism, Informant: Self, Reported on 12/17/2022 metoprolol XL (TOPROL-XL) 25 mg extended release tablet Take 0.5 tablets (12.5 mg total) by mouth daily 15 tablet 11 4 Active Additional Information Patient not taking.Reported on 12/09/2023 furosemide (LASIX) 20 mg tablet Take 1 tablet (20 mg total) by mouth daily 30 tablet 11 4 Active mupirocin (BACTROBAN) 2 % ointment 4 Active prednisoLONE acetate (PRED FORTE) 1 % ophthalmic suspension Administer 1 drop into the right eye daily 5 mL 3 4 Active dorzolamide-ti moloL (Cosopt) 22.3-6.8 mg/mL ophthalmic solution Administer 1 drop into the right eye 2 (two) times a day 10 mL 11 4 Active benzonatate (TESSALON) 200 mg capsule TAKE 1 CAPSULE BY MOUTH TWICE DAILY NEEDED FOR COUGH 4 Active levothyroxine (SYNTHROID) 50 mcg tablet Take 1 tablet (50 mcg total) by mouth daily 4 Active losartan (COZAAR) 25 mg tablet Take 0.5 tablets (12.5 mg total) by mouth daily 45 tablet 3 5 Active losartan (COZAAR) 25 mg tablet Take 0.5 tablets (12.5 mg total) by mouth daily 45 tablet 3 4 05/23/19 25 Discontin ued(Reord er) Active Problems Problem Noted Date Diagnosed Date 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 Cardiomyopathy 05/25/2023 Assessment & Plan (12/09/2023 10:11 AM CDT): HFimpEF. NICM with improved LVEF, 65-70%. Stable NYHA class II findings with BLE edema. She is feeling well today. We made no changes. SBP at home in the 130s, remain off metoprolol-improved fatigue with discontinuing. Continue losartan 25 mg daily and lasix 20 mg daily. Decreased cardiac ejection fraction 05/25/2023 Abnormal echocardiogram 05/25/2023 Stable angina 05/25/2023 Encounter for Medicare annual wellness exam 06/18 Diplopia 11/07/2021 Assessment & Plan (11/07/2021 9:51 AM CDT): Likely SES, no palsy. Adjusted prism, pt saw single in office. Trial frames new prism/Rx, pt acceptance Irregular astigmatism of both eyes 11/07/2021 Assessment & Plan (11/07/2021 9:52 AM CDT): best-corrected visual acuity (BVA) improves w refraction - release updated glasses Rx Primary hypothyroidism 07/03/2021 Vertigo 07/03/2021 Primary open angle glaucoma (POAG) of right eye, severe stage 11/26/2019 Assessment & Plan (05/05/2024 10:43 AM LOAN CLOSER): S/p Molteno OD 12/2022 HVF with possible progression but OCT stable OU IOP single-digits on cosopt BID OD RTC 3 months for IOP check and gonioscopy Assessment & Plan (12/03/2023 11:36 AM CDT): :20 minute trial lens refraction with prism Release updated glasses Rx Cont drops as indicated per Dr. Browning Assessment & Plan (10/22/2023 10:34 AM CDT): s/p Molteno OD 12/2022 Intraocular pressure (IOP) 23 today off Cosopt, above goal Plan Re-start Cosopt BID OD RTC 3-4 months, Sanchez visual field (HVF)/RNFL Assessment & Plan (06/04/2023 10:00 AM LOAN CLOSER): IOP s/p Molteno OD doing well Wants to try off cosopt Trial off cosopt IOP check in 2 months Assessment & Plan (02/22/2023 10:23 AM LOAN CLOSER): POM#2 s/p Molteno OD - IOP improved, 13 on 2 classes - continue PF daily for graft - at goal - follow 3 months for IOP Check Assessment & Plan (01/29/2023 11:18 AM CDT): POW5 post Molteno OD - Tube might be open now, intraocular pressure (IOP) 13 - Taper prednisolone 4-3-2-1 times daily - Continue cosopt - Post op instructions reviewed Return: 4-6 weeks for post op exam. Sooner if questions or concerns. Assessment & Plan (01/21/2023 10:17 AM CDT): POM1 PLACEMENT GLAUCOMA DRAINAGE IMPLANT WITH SCLERAL PATCH GRAFT - Molteno - Right Exam today with exposed vicryl suture. S/p slit lamp removal in clinic today. IOP ok. Continue Pred QID OD and Cosopt BID OD. Return as scheduled for post op visit. Assessment & Plan (01/01/2023 10:49 AM CDT): POW1 PLACEMENT GLAUCOMA DRAINAGE IMPLANT WITH SCLERAL PATCH GRAFT - Molteno - Right Postoperative instructions were given. The patient is to use: STOP ofloxacin QID X 1 week Prednisolone Acetate 1% QID Continue cosopt BID OD Patient is to wear the shield at bedtime X 1 week. Signs, symptoms of retinal detachment, tear, hole, and endophthalmitis were reviewed and the patient is to call immediately for concerns. We discussed that things should improve until they stabilize. Should there be any worsening of pain, vision, or redness the patient is to call. Followup 3-4 week or sooner for concerns. Assessment & Plan (12/25/2022 9:02 AM CDT): POD1 PLACEMENT GLAUCOMA DRAINAGE IMPLANT WITH SCLERAL PATCH GRAFT - Molteno - Right Postoperative instructions were given. The patient is to use: ofloxacin QID X 1 week Prednisolone Acetate 1% QID Continue cosopt BID OD Patient is to wear the shield at bedtime X 1 week. Signs, symptoms of retinal detachment, tear, hole, and endophthalmitis were reviewed and the patient is to call immediately for concerns. We discussed that things should improve until they stabilize. Should there be any worsening of pain, vision, or redness the patient is to call. Followup 1 week or sooner for concerns. Assessment & Plan (12/07/2022 2:31 PM CDT): OD now with progressive vision loss IOP not well controlled Plan for Molteno OD The patient understands the risks, benefits, alternatives and wishes to proceed with glaucoma surgery. We discussed all viable surgical options including MIGS, lasers, and more invasive incisional surgeries. When taking a stepwise approach to glaucoma, the patient understands that the surgery is not curative and we may need to perform additional glaucoma surgery in the future. There is also risk for hypotony, bleeding, infection and rarely vision loss. The patient agrees to proceed with Molteno right eye. Assessment & Plan (07/31/2022 11:28 AM CDT): F/u w/ Dr. Browning as planned Assessment & Plan (06/08/2022 4:26 PM LOAN CLOSER): OD with progression on HVF today IOP remains at goal Follow 6 months with repeat HVF OD only If confirmed progression plan Molteno OD Assessment & Plan (12/01/2021 2:14 PM CDT): IOP spiked last visit Now on cosopt IOP much improved to low teens Follow 6 months with HVF/OCT OU Assessment & Plan (08/25/2021 2:58 PM CDT): Today 08/25/21 VA OD 20/60 and OS 20/20 IOP OD 23 / IOP OS 14.5 On timolol qAM OD Previously with poor response to latanoprost, switched to timolol Goal OD less than 21 -Above goal today -HVF 24-2/ OCT stable -D/c timolol, start Cosopt BID OD RTC 3 mo IOP check Assessment & Plan (07/31/2021 12:11 PM CDT): Follows w/ Dr. Browning Continue timolol qAM OD Assessment & Plan (02/14/2021 10:13 AM CDT): 08/2020 HVF OD with confirmed SAS, correlates with inferior thinning on OCT - thus initiated therapy Previously added latanoprost qHS OD with no change in IOP Started timolol qAM last visit OD IOP 19 today which is below goal (<21) CPM 4-6 months with RTC for repeat testing (HVF 24-2, OCT RNFL OU) Assessment & Plan (11/04/2020 1:18 PM CDT): Added latanoprost qHS OD with no change in IOP Today plan to D/C latanoprost qHS and start timolol qAM OD Follow 3 months for IOP check Goal IOP OD less than 21 Assessment & Plan (08/19/2020 2:36 PM CDT): HVF OD with confirmed SAS, correlates with inferior thinning on OCT Plan to initiate therapy at this time Start Latanoprost qHS OU Follow 2 months, sooner for concerns Assessment & Plan (06/21/2020 10:30 AM LOAN CLOSER): F/u Dr. Browning as planned Assessment & Plan (11/26/2019 5:03 PM CDT): Referral from Dr. Fabian Follows for lesion of iris that has been stable Concern for HVF defects - repeat with improvement Unreliable field as well At this time given healthy nerve, open gonio, no FH and normal IOP - low risk progression for glaucoma Follow 6 months with repeat HVF/OCT, if stable and normal OCT plan to follow annually H/o DSEK OD 04/28/2018 Assessment & Plan (06/04/2023 10:01 AM LOAN CLOSER): Keep PF daily OD Assessment & Plan (07/31/2022 11:28 AM CDT): Stable Cont PF OD qd F/u me prn Assessment & Plan (07/31/2021 12:11 PM CDT): Clear graft PF OD qd RTC me 1 yr Assessment & Plan (08/19/2020 2:37 PM CDT): Continue PF once daily OD Assessment & Plan (06/21/2020 10:31 AM LOAN CLOSER): Clear graft PF OD qd RTC me 1 yr Assessment & Plan (11/26/2019 5:00 PM CDT): H/o DSEK OD, clear graft stable Assessment & Plan (06/15/2019 12:23 PM LOAN CLOSER): Graft clear, pt has some subjective vision changes HVF today with mild nonspecific changes Repeat HVF in 1 year Pred Forte OD q.day Assessment & Plan (06/14/2018 2:40 PM LOAN CLOSER): Stable Pred Forte OD q.day Sensory hearing loss, bilateral 01/25/2018 Blurred vision, bilateral 10/07/2017 Assessment & Plan (10/07/2017 12:57 PM CDT): Patient is noticing some blurry vision especially in the right eye, she does have posterior capsular opacity which may account for the blurry vision. I have asked that she see Dr. Ward for eval for YAG cap. 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 Recommend observation. Assessment & Plan (12/07/2022 2:30 PM CDT): Follows with Dr. Fabian Assessment & Plan (08/13/2022 3:05 PM CDT): Stable exam today. Consider follow-up 1 year for slit lamp photos, UBM OD. Assessment & Plan (07/31/2022 11:29 AM CDT): Stable Will follow w/ Dr. Fabian as planned / me prn Assessment & Plan (06/08/2022 4:25 PM LOAN CLOSER): Follows with Dr. Fabian Assessment & Plan (12/01/2021 2:14 PM CDT): Follows with Dr. Fabian for serial exams Assessment & Plan (10/30/2021 2:39 PM CDT): Remains stable, recommend observation. Assessment & Plan (08/25/2021 2:49 PM CDT): Follows with Dr. Fabian and has remained stable compared with prior photos Assessment & Plan (07/31/2021 12:12 PM CDT): Follows with Dr. Fabian and has remained stable compared to prior photos. Assessment & Plan (01/23/2021 2:24 PM CDT): Remains stable, recommend observation. Assessment & Plan (08/19/2020 2:37 PM CDT): Follows with Rui Assessment & Plan (07/18/2020 4:00 PM CDT): Appears fairly unchanged from previous photographs 01/11/2020. Recommend observation today. Will re-evaluate with anterior segment photographs and ultrasound in roughly 6 months time. Assessment & Plan (06/21/2020 10:28 AM LOAN CLOSER): No change from previous photoo Keep appt w/ Dr. Fabian Assessment & Plan (01/11/2020 2:02 PM CDT): Appears fairly unchanged from previous photographs. Recommend observation today. Will re-evaluate with anterior segment photographs and ultrasound in roughly 6 months time. Assessment & Plan (11/26/2019 5:02 PM CDT): Follows with Dr. Fabian Stable on prior photos and ultrasounds IOP at this time remains stable with no closure of angle on gonio OD Assessment & Plan (10/05/2019 10:21 AM CDT): Appears fairly unchanged from previous photographs. Recommend observation today. Will re-evaluate with anterior segment photographs and ultrasound in roughly 3 months time. Assessment & Plan (06/15/2019 1:20 PM LOAN CLOSER): Images from the original note were not included. Appears stable with no angle involvement on gonioscopy today. Pt also following with Dr. Fabian, last seen 01/18/19 -- continue to monitor with annual exams -- anterior segment ultrasound at next visit Assessment & Plan (01/18/2019 10:09 AM CDT): Lesion size is essentially unchanged on color photographs, the thickness is essentially unchanged as well on ultrasound. I think the lesion is fairly unchanged remains stable. Recommend observation. Some of the variation in the numbers we get on the ultrasound are due to where I placed the calipers today. Again I think everything is fairly stable. She has had this lesion for many years I have recommended follow-up with , I am happy to see her again should he feel things change in any way. Assessment & Plan (06/14/2018 2:41 PM LOAN CLOSER): Stable today, recommend observation. Return in 1 year Assessment & Plan (05/19/2018 12:12 PM LOAN CLOSER): Stable today, recommend observation. 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 RTC 9-12 months. Pseudophakia, both eyes 10/05/2017 Assessment & Plan (12/07/2022 2:31 PM CDT): Stable OU Assessment & Plan (06/08/2022 4:25 PM LOAN CLOSER): Stable both eyes Assessment & Plan (11/26/2019 5:01 PM CDT): Stable OU, s/p YAG OD Assessment & Plan (01/18/2019 10:03 AM CDT): Stable today, recommend observation. Assessment & Plan (04/28/2018 11:49 AM LOAN CLOSER): stable Basal cell carcinoma (BCC) of upper lip 06/02/19 18 Squamous cell carcinoma in situ (SCCIS) of skin 06/02/2017 Lentigo 10/26/2016 Actinic keratosis 08/28/2014 Benign neoplasm of soft tissues 08/28/2014 Sensorineural hearing loss (SNHL) of both ears 1 05/27/2013 Encounters Date Type Department Care Team Description 05/05/2024 10:00 AM LOAN CLOSER Office Visit [facility] [place] [address] Selina Browning MD Primary open angle glaucoma (POAG) of right eye, severe stage (Primary Dx) 05/05/2024 9:50 AM LOAN CLOSER Imaging Exam [facility] [address] [place] [phone] Primary open angle glaucoma (POAG) of right eye, severe stage 05/05/2024 9:30 AM LOAN CLOSER Imaging Exam [facility] [address] [place] [phone] Primary open angle glaucoma (POAG) of right eye, severe stage 05/04/2024 Orders Only [facility] [address] [place] [phone] Selina Browning MD Primary open angle glaucoma (POAG) of right eye, severe stage (Primary Dx) 03/28/2024 2:45 PM LOAN CLOSER Office Visit [facility] [address] [place] [address] [address] [place] [phone] Terrell Izaguirre PA Actinic keratosis (Primary Dx); Seborrheic keratosis; Abrasion; History of nonmelanoma skin cancer from Last 3 Months Immunizations Name Administration Dates Next Due clypd (J&J) SARS-CoV-2 Vaccination 11/01/2020 Surgical History Surgery Date Site/Laterality Comments [place] KERATOPLASTY ENDOTHELIAL Right Cornea Transplant Endothelial - (Added by TW Conv) CATARACT EXTRACTION Right Cataract Surgery - (Added by TW Conv) [place] KERATOPLASTY ANTERIOR LAMELLAR Right Cornea Transplant - (Added by TW Conv) CATARACT EXTRACTION HYSTERECTOMY ROTATOR CUFF REPAIR Right ESOPHAGOGASTRODUODENOSCOPY 04/19/2018 - 05/19/2018 Medical History Medical History Date Comments Personal history of diseases of skin or subcutaneous tissue History of actinic keratosis - (Added by TW Conv) BCC (basal cell carcinoma of skin) Benign neoplasm of iris Cataract History of squamous cell car cinoma in situ (SCCIS) of skin 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 GERD (gastroesophageal reflux disease) Hypothyroidism Secondary cataract of right eye 04/28/2018 Blood transfusion declined b ecause patient is [place] Family History Medical History Relation Name Comments Stroke Brother Heart disease Father Family history of cardiac disorder - (Added by TW Conv) Heart failure Father No Known Problems Mother Anesthesia problems Neg Hx Glaucoma Neg Hx Macular degeneration Neg Hx Relation Name Status Comments Brother Father Mother Social History Tobacco Use Types Packs/Day Years Used Date Smoking Tobacco: Former Cigarettes Smokeless Tobacco: Never Tobacco Cessation:Counseling Given: Not Answered Alcohol Use Standard Drinks/Week Comments No 0 (1 standard drink = 0.6 oz pur e alcohol) AUDIT-C Answer Date Recorded Q1: How often do you have a drink containing alc ohol? Monthly or less 06/09/2023 Q2: How many drinks containi ng alcohol do you have on a typical day when you are drinking? 1 or 2 06/09/2023 Q3: How often do you have si x or more drinks on one occasion? Never 06/09/2023 PHQ-2 Answer Date Recorded PHQ-2 Total Score (If total score is 3 or more points, staff should administer the PHQ-9) 0 07/07/2022 Personal Safety Answer Date Recorded Have you ever been in or are you currently in a harmful physical or emotional relationship or is someone making you feel afraid or unsafe? Denies 12/09/2023 Comments No Sex and Gender Information Value Date Recorded Sex Assigned at Not on file Legal Sex Female 6:45 PM LOAN CLOSER Gender Identity Not on file Sexual Orientation Not on file Obstetrics History Last Filed Vital Signs Vital Sign Reading Time Taken Comments Blood Pressure 157/76 12/09/2023 11:22 AM CDT Pulse 51 12/09/2023 11:22 AM CDT Temperature 36.4 C (97.5 F) 12/09/2023 11:22 AM CDT Respiratory Rate 20 12/09/2023 11:22 AM CDT Oxygen Saturation 100% 12/09/2023 11:22 AM CDT Inhaled Oxygen Concentration - - Weight 41.3 kg (91 lb) 12/09/2023 9:42 AM CDT Height 165.1 cm (5' 5 ) 12/09/2023 9:42 AM CDT Body Mass Index 15.14 12/09/2023 9:42 AM CDT Plan of Treatment Health Maintenance Due Date Last Done Comments Pneumococcal vaccine 65+ (1 of 2 - PCV) 12/19/1941 DTaP/Tdap/Td Vaccine (1 - Tdap) 12/19/1946 Hepatitis B Screening 12/19/1953 Zoster Vaccine (1 of 2) 12/19/1985 Depression Screening 07/08/2023 07/07/2022, 07/08/19 23 Well Visit 65+ 07/08/2023 07/07/2022, 06/17, 05/14/2020 Covid-19 Vaccine ( season) 2023, 11/01/2020 Influenza Vaccine (#1) 2023 Fall Risk Assessment 06/09/2024 06/09/2023, 07/08/19 23 Medical Devices Implanted Type Area Senior Sales Assistant Device Identifier Shelf Expiration Date Model / Serial / Lot ECS Tuning Tutoplast Iopatch 1x.6cm Dehydrate Processed Allograft Graft Soft [id number] - [id number] - [id number] Implanted:Qty : 1 on 12/24/2022 by Selina Browning MD at [facility] Other - see comments [employer] [id number] 06/17/2027 [id number] / [id number] / [id number] [employer] Implant Molteno Gen 3-185 Ss-185 - [id number] - [id number] Implanted:Qty : 1 on 12/24/2022 by Selina Browning MD at [facility] Tube Right: Eye [employer] [id number] 01/13/2027 SS-185 / [id number] / [id number] Procedures Procedure Name Priority Date/Time Associated Diagnosis Comments SANCHEZ VISUAL FIELD - OU - BOTH EYES Routine 05/05/2024 10:01 AM LOAN CLOSER Primary open angle glaucoma (POAG) of right eye, severe stage OCT, OPTIC NERVE - OU - BOTH EYES Routine 05/05/2024 10:01 AM LOAN CLOSER Primary open angle glaucoma (POAG) of right eye, severe stage from Last 3 Months Results * Sanchez Visual Field - OU - Both Eyes (05/05/2024 10:01 AM LOAN CLOSER) Pattern Deviation OS 3.14 dB CONTINUUM Pattern Deviation OD 7.09 dB CONTINUUM Mean Deviation OS -3.54 dB CONTINUUM Mean Deviation OD -25.19 dB CONTINUUM Anatomical Region Laterality Modality Head Other Narrative 05/05/2024 10:46 AM LOAN CLOSER Right Eye Fixation was good. Cooperation was good. Reliability was borderline. Foveal threshold was reduced. Mean Deviation was -25.19 dB. Pattern Deviation was 7.09 dB. Left Eye Fixation was good. Reliability was good. Foveal threshold was normal. Mean Deviation was -3.54 dB. Pattern Deviation was 3.14 dB. Notes R - generalized depression - progressed from prior but high false negatives L - superior arcuate - progression of superior changes Selina Browning MD OPHTH VISUAL FIELD Final Resu lt * OCT, Optic Nerve - OU - Both Eyes (05/05/2024 10:01 AM LOAN CLOSER) RNFL OS 85 micrometers CONTINUUM RNFL OD 73 micrometers CONTINUUM Anatomical Region Laterality Modality Head Other Narrative 05/05/2024 10:46 AM LOAN CLOSER Right Eye Reliability was good. Temporal thickness was normal. Superior thickness was showing abnormal thinning. Nasal thickness was normal. Inferior thickness was showing abnormal thinning. Average RNFL thickness 73 micrometers. Left Eye Reliability was good. Temporal thickness was normal. Superior thickness was normal. Nasal thickness was normal. Inferior thickness was normal. Average RNFL thickness 85 micrometers. Selina Browning MD OPHTH TOMOGRAPHY Final Result from Last 3 Months Insurance [employer] MEDICARE MEDICARE [facility] MEDICARE [facility] Advance Directives For more information, please contact: [phone] Documents on File Type Date Recorded Patient Review Specialist Expl anation ADVANCE DIRECTIVE 12/24/2022 9:19 AM Power of Address Change Clerk-Medical * Full Code (Latest Code Status on File) Date Activated Date Inactivated Comments 06/09/2023 9:53 AM 06/09/2023 5:15 PM * Full Code Date Activated Date Inactivated Comments 05/17/2018 11:10 AM 05/17/2018 4:31 PM Care Teams Jewellery Designer Relationship Specialty Start Date End Date Roxann Albarran DO PCP - General Family Medicine 12/07/22
--- OUTSIDE RECORDS SUMMARY | 2024-05-31 09:39 | XMS_ITS ---
Author Organization [facility] Address [address] [place] [address] Phone Care Team Providers Care Director Of Psychiatry Name Role Phone Roxann Albarran DO Primary Care Provider [phone]- [phone] Active Problems Problem Noted Date Diagnosed Date [...] 11/26/2019 Assessment & Plan (05/05/2024 10:43 AM TALENT DEVELOPMENT ANALYST): S/p Molteno OD 12/2022 HVF with possible [...] (HVF)/RNFL Assessment & Plan (06/04/2023 10:00 AM TALENT DEVELOPMENT ANALYST): IOP s/p Molteno OD doing well Wants to try off cosopt Trial off cosopt IOP check in 2 months Assessment & Plan (02/22/2023 10:23 AM TALENT DEVELOPMENT ANALYST): POM#2 s/p Molteno OD - IOP improved, [...] planned Assessment & Plan (06/08/2022 4:26 PM TALENT DEVELOPMENT ANALYST): OD with progression on HVF today IOP [...] concerns Assessment & Plan (06/21/2020 10:30 AM TALENT DEVELOPMENT ANALYST): F/u Dr. Browning as planned Assessment & [...] 04/28/2018 Assessment & Plan (06/04/2023 10:01 AM TALENT DEVELOPMENT ANALYST): Keep PF daily OD Assessment & Plan (07/31/2022 11:28 AM CDT): Stable Cont PF OD qd F/u me prn Assessment & Plan (07/31/2021 12:11 PM CDT): Clear graft PF OD qd RTC me 1 yr Assessment & Plan (08/19/2020 2:37 PM CDT): Continue PF once daily OD Assessment & Plan (06/21/2020 10:31 AM TALENT DEVELOPMENT ANALYST): Clear graft PF OD qd RTC me 1 yr Assessment & Plan (11/26/2019 5:00 PM CDT): H/o DSEK OD, clear graft stable Assessment & Plan (06/15/2019 12:23 PM TALENT DEVELOPMENT ANALYST): Graft clear, pt has some subjective vision changes HVF today with mild nonspecific changes Repeat HVF in 1 year Pred Forte OD q.day Assessment & Plan (06/14/2018 2:40 PM TALENT DEVELOPMENT ANALYST): Stable Pred Forte OD q.day Sensory hearing [...] prn Assessment & Plan (06/08/2022 4:25 PM TALENT DEVELOPMENT ANALYST): Follows with Dr. Fabian Assessment & Plan [...] time. Assessment & Plan (06/21/2020 10:28 AM TALENT DEVELOPMENT ANALYST): No change from previous photoo Keep appt [...] time. Assessment & Plan (06/15/2019 1:20 PM TALENT DEVELOPMENT ANALYST): Images from the original note were not [...] way. Assessment & Plan (06/14/2018 2:41 PM TALENT DEVELOPMENT ANALYST): Stable today, recommend observation. Return in 1 year Assessment & Plan (05/19/2018 12:12 PM TALENT DEVELOPMENT ANALYST): Stable today, recommend observation. 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 RTC 9-12 months. Pseudophakia, both eyes 10/05/2017 Assessment & Plan (12/07/2022 2:31 PM CDT): Stable OU Assessment & Plan (06/08/2022 4:25 PM TALENT DEVELOPMENT ANALYST): Stable both eyes Assessment & Plan (11/26/2019 5:01 PM CDT): Stable OU, s/p YAG OD Assessment & Plan (01/18/2019 10:03 AM CDT): Stable today, recommend observation. Assessment & Plan (04/28/2018 11:49 AM TALENT DEVELOPMENT ANALYST): stable Basal cell carcinoma (BCC) of upper lip 06/02/19 18 Squamous cell carcinoma in situ (SCCIS) of skin 06/02/2017 Lentigo 10/26/2016 Actinic keratosis 08/28/2014 Benign neoplasm of soft tissues 08/28/2014 Sensorineural hearing loss (SNHL) of both ears 1 05/27/2013 Current Oncology Plans No current plan information found. Past Plans No past plan information found. Radiation Treatments * No radiation treatments are documented for this patient in [facility]. Treatments may have been administered in another system. Lifetime Dose Tracking * Chemical Lifetime Dose Automatic Entry Manual Entr y Air kerma at the reference point (Ka,r) 111 mGy 0 mGy 111 mGy DLP 1,066 mGycm 1,066 mGycm 0 mGycm
--- OUTSIDE RECORDS SUMMARY | 2024-05-31 09:39 | XMS_ITS | Referral Summary ---
Author Organization [facility] Address [address] [place] [address] Phone Care Team Providers Care Food Service Tray Attendant Name Role Phone Roxann Albarran DO Primary Care Provider [phone]- [phone] Encounters Date Type Department Care Team Description 05/05/2024 10:00 AM INTERNAL AUDIT CONSULTANT Office Visit [facility] Ophthalmology [address] [place] [phone] Selina Browning MD Primary open angle glaucoma (POAG) of right eye, severe stage (Primary Dx) 05/05/2024 9:50 AM INTERNAL AUDIT CONSULTANT Imaging Exam [facility] Ophthalmology [address] [place] [phone] Primary open angle glaucoma (POAG) of right eye, severe stage 05/05/2024 9:30 AM INTERNAL AUDIT CONSULTANT Imaging Exam [facility] Ophthalmology [address] [place] [phone] Primary open angle glaucoma (POAG) of right eye, severe stage 05/04/2024 Orders Only [facility] Ophthalmology [address] [place] [address] [phone] Selina Browning MD Primary open angle glaucoma (POAG) of right eye, severe stage (Primary Dx) 03/28/2024 2:45 PM INTERNAL AUDIT CONSULTANT Office Visit [facility] Dermatology [address] [place] [address] [address] [place] [phone] Terrell Izaguirre PA Actinic keratosis (Primary Dx); Seborrheic keratosis; Abrasion; History of nonmelanoma skin cancer from Last 3 Months Allergies Active Allergy Reactions Criticality Noted Date Comments Acyclovir Nausea only Low 09/27/2017 GI distress Wheat Headache Low 12/17/2022 Upset stomach Medications vit P-nofluwmhdj-x ioflavonoids 500-100-100 mg tabletIndicati ons:supplement Take 1 [...] 2 (two) times a day 10 mL 4 Active benzonatate (TESSALON) 200 mg capsule [...] 11/26/2019 Assessment & Plan (05/05/2024 10:43 AM INTERNAL AUDIT CONSULTANT): S/p Molteno OD 12/2022 HVF with possible progression but OCT stable OU IOP single-digits on cosopt BID OD RTC 3 months for IOP check and gonioscopy Assessment & Plan (12/03/2023 11:36 AM CDT): :20 minute trial lens refraction with prism Release updated glasses Rx Cont drops as indicated per Dr. Sieck Assessment & Plan (10/22/2023 10:34 AM CDT): s/p Molteno OD 12/2022 Intraocular pressure (IOP) 23 today off Cosopt, above goal Plan Re-start Cosopt BID OD RTC 3-4 months, Sanchez visual field (HVF)/RNFL Assessment & Plan (06/04/2023 10:00 AM INTERNAL AUDIT CONSULTANT): IOP s/p Molteno OD doing well Wants to try off cosopt Trial off cosopt IOP check in 2 months Assessment & Plan (02/22/2023 10:23 AM INTERNAL AUDIT CONSULTANT): POM#2 s/p Molteno OD - IOP improved, [...] planned Assessment & Plan (06/08/2022 4:26 PM INTERNAL AUDIT CONSULTANT): OD with progression on HVF today IOP [...] concerns Assessment & Plan (06/21/2020 10:30 AM INTERNAL AUDIT CONSULTANT): F/u Dr. Browning as planned Assessment & [...] 04/28/2018 Assessment & Plan (06/04/2023 10:01 AM INTERNAL AUDIT CONSULTANT): Keep PF daily OD Assessment & Plan (07/31/2022 11:28 AM CDT): Stable Cont PF OD qd F/u me prn Assessment & Plan (07/31/2021 12:11 PM CDT): Clear graft PF OD qd RTC me 1 yr Assessment & Plan (08/19/2020 2:37 PM CDT): Continue PF once daily OD Assessment & Plan (06/21/2020 10:31 AM INTERNAL AUDIT CONSULTANT): Clear graft PF OD qd RTC me 1 yr Assessment & Plan (11/26/2019 5:00 PM CDT): H/o DSEK OD, clear graft stable Assessment & Plan (06/15/2019 12:23 PM INTERNAL AUDIT CONSULTANT): Graft clear, pt has some subjective vision changes HVF today with mild nonspecific changes Repeat HVF in 1 year Pred Forte OD q.day Assessment & Plan (06/14/2018 2:40 PM INTERNAL AUDIT CONSULTANT): Stable Pred Forte OD q.day Sensory hearing [...] prn Assessment & Plan (06/08/2022 4:25 PM INTERNAL AUDIT CONSULTANT): Follows with Dr. Fabian Assessment & Plan [...] time. Assessment & Plan (06/21/2020 10:28 AM INTERNAL AUDIT CONSULTANT): No change from previous photoo Keep appt [...] time. Assessment & Plan (06/15/2019 1:20 PM INTERNAL AUDIT CONSULTANT): Images from the original note were not [...] way. Assessment & Plan (06/14/2018 2:41 PM INTERNAL AUDIT CONSULTANT): Stable today, recommend observation. Return in 1 year Assessment & Plan (05/19/2018 12:12 PM INTERNAL AUDIT CONSULTANT): Stable today, recommend observation. 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 RTC 9-12 months. Pseudophakia, both eyes 10/05/2017 Assessment & Plan (12/07/2022 2:31 PM CDT): Stable OU Assessment & Plan (06/08/2022 4:25 PM INTERNAL AUDIT CONSULTANT): Stable both eyes Assessment & Plan (11/26/2019 5:01 PM CDT): Stable OU, s/p YAG OD Assessment & Plan (01/18/2019 10:03 AM CDT): Stable today, recommend observation. Assessment & Plan (04/28/2018 11:49 AM INTERNAL AUDIT CONSULTANT): stable Basal cell carcinoma (BCC) of upper lip 06/02/19 18 Squamous cell carcinoma in situ (SCCIS) of skin 06/02/2017 Lentigo 10/26/2016 Actinic keratosis 08/28/2014 Benign neoplasm of soft tissues 08/28/2014 Sensorineural hearing loss (SNHL) of both ears 1 05/27/2013 Immunizations Name Administration Dates Next Due iGrow - Dein Lernprogramm im Leben (J&J) SARS-CoV-2 Vaccination 11/01/2020 Social History Tobacco Use Types Packs/Day Years [...] on file Legal Sex Female 6:45 PM INTERNAL AUDIT CONSULTANT Gender Identity Not on file Sexual Orientation Not on file Last Filed Vital Signs Vital Sign Reading [...] 12/09/2023 9:42 AM CDT Plan of Treatment Not on file Medical Devices Implanted Type Area Dish Up Person Device Identifier Shelf Expiration Date Model / Serial / Lot datatracker Tutoplast Iopatch 1x.6cm Dehydrate Processed Allograft Graft Soft 80172 - [id number] - [id number] Implanted:Qty : 1 on 12/24/2022 by Selina Browning MD at [facility] Other - see comments [employer] [id number] 06/17/2027 [id number] / [id number] / [id number] [employer] Implant Molteno Gen 3-185 Ss-185 - [id number] - [id number] Implanted:Qty : 1 on 12/24/2022 by Selina Browning MD at [facility] Tube Right: Eye [employer] [id number] 01/13/2027 SS-185 / 815 / [id number] Procedures Procedure Name Priority Date/Time Associated Diagnosis Comments SANCHEZ VISUAL FIELD - OU - BOTH EYES Routine 05/05/2024 10:01 AM INTERNAL AUDIT CONSULTANT Primary open angle glaucoma (POAG) of right eye, severe stage OCT, OPTIC NERVE - OU - BOTH EYES Routine 05/05/2024 10:01 AM INTERNAL AUDIT CONSULTANT Primary open angle glaucoma (POAG) of right eye, severe stage from Last 3 Months Results * Sanchez Visual Field - OU - Both Eyes (05/05/2024 10:01 AM INTERNAL AUDIT CONSULTANT) Pattern Deviation OS 3.14 dB CONTINUUM Pattern Deviation OD 7.09 dB CONTINUUM Mean Deviation OS -3.54 dB CONTINUUM Mean Deviation OD -25.19 dB CONTINUUM Anatomical Region Laterality Modality Head Other Narrative 05/05/2024 10:46 AM INTERNAL AUDIT CONSULTANT Right Eye Fixation was good. Cooperation was [...] progression of superior changes Selina Browning MD OPH VISUAL FIELD Final Resu lt * OCT, Optic Nerve - OU - Both Eyes (05/05/2024 10:01 AM INTERNAL AUDIT CONSULTANT) RNFL OS 85 micrometers CONTINUUM RNFL OD 73 micrometers CONTINUUM Anatomical Region Laterality Modality Head Other Narrative 05/05/2024 10:46 AM INTERNAL AUDIT CONSULTANT Right Eye Reliability was good. Temporal thickness was normal. Superior thickness was showing abnormal thinning. Nasal thickness was normal. Inferior thickness was showing abnormal thinning. Average RNFL thickness 73 micrometers. Left Eye Reliability was good. Temporal thickness was normal. Superior thickness was normal. Nasal thickness was normal. Inferior thickness was normal. Average RNFL thickness 85 micrometers. Selina Browning MD OPH TOMOGRAPHY Final Result from Last 3 Months Insurance [employer] MEDICARE MEDICARE [facility] MEDICARE [facility] Address: [address] [address] [place] [address] FORMERLY [facility] MEDICARE FORMERLY [facility], [facility] MEDICARE Advance Directives For more information, please contact: [phone] Documents on File Type Date Recorded Patient Sales Professional Expl anation ADVANCE DIRECTIVE 12/24/2022 9:19 AM Power of Stock Checkerer-Medical * Full Code (Latest Code Status on File) Date Activated Date Inactivated Comments 06/09/2023 9:53 AM 06/09/2023 5:15 PM * Full Code Date Activated Date Inactivated Comments 05/17/2018 11:10 AM 05/17/2018 4:31 PM Care Teams Food Service Tray Attendant Relationship Specialty Start Date End Date Roxann Albarran DO PCP - General Family Medicine 12/07/22
--- OUTSIDE RECORDS SUMMARY | 2024-05-31 09:41 | XMS_ITS | Continuity of Care Document ---
Author Organization [facility] Address [address] [place] [address] [place] [address] Phone Care Team Providers Care Manager Sas Name Role Phone Gulshan Pace DO Unavailable Unavailable Advance Directives Directive Yes / No Effective Date File Name No Information Encounters Encounter Description Practice Location Reason(s) For Visit Diagnoses Date Provider Providers Copied on Encounter [facility], [address] [place] [address] [address], [place], [place], [id number], [place] tel:[phone] [facility] No Information Katelynn Salazar. [address] [place], [address], [place]. tel: [phone] Family History Family Member Type Diagnosis Age At Onset No Information Payers Payer name Insurance type Covered alliance party ID Authoriza tion(s) No Information Social History Type Description Quantity Date Captured Comments Sex Female Smoking Status No Information Chief Complaint And Reason For Visit No Information Reason For Referral Reason For Referral No Information History Of Present Illness Encounter Date Complaint History Of Prese nt Illness No Information Functional Status Date Functional Assessmen t No Information Instructions Date Instruction Additional Infor mation No Information Assessments Type Assessment Date No Information Patient Care Teams Name Effective Dates (start - stop) Status Members No Information
== END 2024-05-31 09:01 | disposition home or self-care (01) ==
PROVIDERS: PCP Family Medicine; Visit Provider Family Medicine
DX: Z46.1 Encounter for fitting and adjustment of hearing aid (principal); H90.3 Sensorineural hearing loss, bilateral
CPT/HCPCS: 92557; 92567; 99199

== ENCOUNTER 2024-06-02 09:24 | Emergency (ER) | payer MEDICARE, SELFPAY ==
--- NOTE | ~2024-06-02 | XR_ITS ---
EXAMINATION: XR chest 1V portable DATE: 06/02/2024 11:13 INDICATION: Pneumonia TECHNIQUE: frontal view of the chest was obtained. COMPARISON: Chest radiograph dated 11/01/2023 FINDINGS: Unchanged mild biapical pleural-parenchymal scarring and linear discoid atelectasis/scarring at the l eft lower lung zone. Subtle airspace opacities in the suprahilar right upper lung zone consistent wit h pneumonia which is better appreciated on the CT of the cervical spine performed an hour prior. No o ther airspace opacities, pulmonary edema, pleural effusion or pneumothorax. Heart size within normal limits for AP technique. Thoracic dextro scoliosis with moderate spondylosis. IMPRESSION: 1. Subtle opacities in the right upper lung zone consistent with pneumonia. Reviewed, dictated and finalized at location A. LER HELPER
--- NOTE | ~2024-06-02 | CT_ITS ---
EXAMINATION: CT brain wo con DATE: 06/02/2024 09:49 INDICATION: Fall TECHNIQUE: Computed tomography (CT) of the head was performed without intravenous contrast. Sagittal and coronal reconstructions were performed. The mA was adjusted according to patient size. Iterative reconstruction technique was employed. The dose-length product was 605.33 mGy-cm. COMPARISON: None FINDINGS: No fracture. No acute intracranial hemorrhage, acute infarction or abnormal extra axial fluid collect ion. There is mild scattered white matter hypoattenuation consistent with chronic small vessel ischem ic disease. Symmetric prominence of the sulci consistent with mild age-appropriate diffuse cerebral v olume loss. . Ventricles are normal and symmetric. No mass/mass effect.. Changes of bilateral intraoc ular lens replacement. The orbits, paranasal sinuses and mastoid air cells are normal. Mucosal thick ening and sclerotic wall thickening at the right maxillary sinus consistent with chronic sinusitis. I ntracranial calcified cerebral atherosclerosis is noted at the carotid siphons. IMPRESSION: 1. Normal aging brain with no fracture or acute intracranial process. Reviewed, dictated and finalized at location A. ICE ATTENDANT CAFETERIA
--- NOTE | ~2024-06-02 | XR_ITS ---
EXAMINATION: XR shoulder RT min 2V DATE: 06/02/2024 09:40 INDICATION: Right shoulder pain. Fall. TECHNIQUE: 4 views of right shoulder were obtained. COMPARISON: Right shoulder radiographs 07/10/2004 FINDINGS: There is thoracic dextroscoliosis. No fracture. There is mild osteoarthritis of acromioclav icular joint. Glenohumeral joint is normal. There are changes of anterior fusion procedure in cervica l spine. IMPRESSION: 1. Mild osteoarthritis of acromioclavicular joint. Reviewed, dictated and finalized at location A. ING AGENCY COUNTER CLERK
--- NOTE | ~2024-06-02 | CT_ITS ---
EXAMINATION: CT cervical spine wo con DATE: 06/02/2024 09:49 INDICATION: Fall with head injury TECHNIQUE: Computed tomography (CT) of the cervical spine was performed without intravenous contrast. Automated exposure control and iterative reconstruction technique were employed. The dose-length pro duct was 97.69 mGy-cm. COMPARISON: Radiographs dated 06/20/2004 FINDINGS: C4-C5 interspace pleural effusion with anterior plate and screw fixation. There are some associated p osterior spinal fusion bilaterally at C4-C5 with additional fusion across the right C3-C4 5 and uncov ertebral joints. 2 mm retrolisthesis C3 on C4 and 2 mm retrolisthesis C5 on C6, C6 on C7 and C7 on T1 . 20 degrees cervical levocurvature. Vertebral body heights are normal. No fracture. Schmorl's node a long the superior endplate of T4. There is mild central canal stenosis at C3-C4 resulting primarily f rom the spondylolisthesis. There is Severe disc height loss at C2-C3, C3-C4 and T2-T3, moderate disc height loss at C5-C6 through C7-T1 and at T2-T3. There is multilevel moderate in severe cervical face t osteoarthritis. Moderate neural foraminal stenosis on the right at C4-C5 with mild neural from sten osis at several of the remaining bilateral cervical neural foramina. Consolidation with surrounding g roundglass opacity posterior aspect of the right upper lobe suspicious for pneumonia. Likely benign 1 cm coarsely calcified left thyroid nodule. Cervical soft tissues are otherwise unremarkable. IMPRESSION: 1. Severe cervical spondylosis with instrumented C4-C5 anterior spinal fusion. No acute osseous abnor mality. 2. Right upper lobe pneumonia. Reviewed, dictated and finalized at location A. STERED NURSE BEHAVIORAL HEALTH IMPRESSION: 1. Severe cervical spondylosis with instrumented C4-C5 anterior spinal fusion. No acute osseous abnormality. 2. Right upper lobe pneumonia.
--- OUTSIDE RECORDS SUMMARY | 2024-06-02 09:27 | XMS_ITS | Clinical Summary ---
Author Organization [facility] Address [address] [place] [address] Phone Care Team Providers Care Telemarketing Manager Name Role Phone Roxann Albarran Kristal Primary Care Provider [phone]- [phone] Allergies Active Allergy Reactions Criticality Noted Date Comments Acyclovir Nausea only Low 09/27/2017 GI distress Wheat Headache Low 12/17/2022 Upset stomach Medications vit L-eyxhpsmojd-f ioflavonoids 500-100-100 mg tabletIndicati ons:supplement Take 1 [...] 11/26/2019 Assessment & Plan (05/05/2024 10:43 AM GUEST RELATIONS ASSOCIATE): S/p Molteno OD 12/2022 HVF with possible [...] (HVF)/RNFL Assessment & Plan (06/04/2023 10:00 AM GUEST RELATIONS ASSOCIATE): IOP s/p Molteno OD doing well Wants to try off cosopt Trial off cosopt IOP check in 2 months Assessment & Plan (02/22/2023 10:23 AM GUEST RELATIONS ASSOCIATE): POM#2 s/p Molteno OD - IOP improved, [...] planned Assessment & Plan (06/08/2022 4:26 PM GUEST RELATIONS ASSOCIATE): OD with progression on HVF today IOP [...] concerns Assessment & Plan (06/21/2020 10:30 AM GUEST RELATIONS ASSOCIATE): F/u Dr. Browning as planned Assessment & [...] 04/28/2018 Assessment & Plan (06/04/2023 10:01 AM GUEST RELATIONS ASSOCIATE): Keep PF daily OD Assessment & Plan (07/31/2022 11:28 AM CDT): Stable Cont PF OD qd F/u me prn Assessment & Plan (07/31/2021 12:11 PM CDT): Clear graft PF OD qd RTC me 1 yr Assessment & Plan (08/19/2020 2:37 PM CDT): Continue PF once daily OD Assessment & Plan (06/21/2020 10:31 AM GUEST RELATIONS ASSOCIATE): Clear graft PF OD qd RTC me 1 yr Assessment & Plan (11/26/2019 5:00 PM CDT): H/o DSEK OD, clear graft stable Assessment & Plan (06/15/2019 12:23 PM GUEST RELATIONS ASSOCIATE): Graft clear, pt has some subjective vision changes HVF today with mild nonspecific changes Repeat HVF in 1 year Pred Forte OD q.day Assessment & Plan (06/14/2018 2:40 PM GUEST RELATIONS ASSOCIATE): Stable Pred Forte OD q.day Sensory hearing [...] prn Assessment & Plan (06/08/2022 4:25 PM GUEST RELATIONS ASSOCIATE): Follows with Dr. Fabian Assessment & Plan [...] time. Assessment & Plan (06/21/2020 10:28 AM GUEST RELATIONS ASSOCIATE): No change from previous photoo Keep appt [...] time. Assessment & Plan (06/15/2019 1:20 PM GUEST RELATIONS ASSOCIATE): Images from the original note were not [...] way. Assessment & Plan (06/14/2018 2:41 PM GUEST RELATIONS ASSOCIATE): Stable today, recommend observation. Return in 1 year Assessment & Plan (05/19/2018 12:12 PM GUEST RELATIONS ASSOCIATE): Stable today, recommend observation. 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 RTC 9-12 months. Pseudophakia, both eyes 10/05/2017 Assessment & Plan (12/07/2022 2:31 PM CDT): Stable OU Assessment & Plan (06/08/2022 4:25 PM GUEST RELATIONS ASSOCIATE): Stable both eyes Assessment & Plan (11/26/2019 5:01 PM CDT): Stable OU, s/p YAG OD Assessment & Plan (01/18/2019 10:03 AM CDT): Stable today, recommend observation. Assessment & Plan (04/28/2018 11:49 AM GUEST RELATIONS ASSOCIATE): stable Basal cell carcinoma (BCC) of upper lip 06/02/19 18 Squamous cell carcinoma in situ (SCCIS) of skin 06/02/2017 Lentigo 10/26/2016 Actinic keratosis 08/28/2014 Benign neoplasm of soft tissues 08/28/2014 Sensorineural hearing loss (SNHL) of both ears 1 05/27/2013 Encounters Date Type Department Care Team Description 05/05/2024 10:00 AM GUEST RELATIONS ASSOCIATE Office Visit [facility] Ophthalmology [facility] [place] [address] Selina Browning MD Primary open angle glaucoma (POAG) of right eye, severe stage (Primary Dx) 05/05/2024 9:50 AM GUEST RELATIONS ASSOCIATE Imaging Exam [facility] Ophthalmology [address] [place] [phone] Primary open angle glaucoma (POAG) of right eye, severe stage 05/05/2024 9:30 AM GUEST RELATIONS ASSOCIATE Imaging Exam [facility] Ophthalmology [address] [place] [phone] Primary open angle glaucoma (POAG) of right eye, severe stage 05/04/2024 Orders Only [facility] Ophthalmology [address] [place] [address] [phone] Selina Browning MD Primary open angle glaucoma (POAG) of right eye, severe stage (Primary Dx) 03/28/2024 2:45 PM GUEST RELATIONS ASSOCIATE Office Visit [facility] Dermatology [address] [place] [address] [address] [place] [phone] Terrell Izaguirre PA Actinic keratosis (Primary Dx); Seborrheic keratosis; Abrasion; History of nonmelanoma skin cancer from Last 3 Months Immunizations Name Administration Dates Next Due Traitify (J&J) SARS-CoV-2 Vaccination 11/01/2020 Surgical History Surgery Date Site/Laterality Comments 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 - (Added by TW Conv) CATARACT EXTRACTION Right Cataract Surgery - (Added by TW Conv) GA KERATOPLASTY ANTERIOR LAMELLAR Right Cornea Transplant - [...] Blood transfusion declined b ecause patient is Christianity Family History Medical History Relation Name Comments [...] on file Legal Sex Female 6:45 PM GUEST RELATIONS ASSOCIATE Gender Identity Not on file Sexual Orientation [...] 07/08/19 23 Medical Devices Implanted Type Area Supervisor Floor Assembly Device Identifier Shelf Expiration Date Model / Serial / Lot Social Plus Tutoplast Iopatch 1x.6cm Dehydrate Processed Allograft Graft Soft 50040 - [id number] - [id number] Implanted:Qty : 1 on 12/24/2022 by Selina Browning MD at [facility] Other - see comments [employer] [id number] 06/17/2027 [id number] / [id number] / [id number] [employer] Implant Molteno Gen 3-185 Ss-185 - [id number] - [id number] Implanted:Qty : 1 on 12/24/2022 by Selina Browning MD at [facility] Tube Right: Eye [employer] [id number] 01/13/2027 SS-185 / 815 / [id number] Procedures Procedure Name Priority Date/Time Associated Diagnosis Comments SANCHEZ VISUAL FIELD - OU - BOTH EYES Routine 05/05/2024 10:01 AM GUEST RELATIONS ASSOCIATE Primary open angle glaucoma (POAG) of right eye, severe stage OCT, OPTIC NERVE - OU - BOTH EYES Routine 05/05/2024 10:01 AM GUEST RELATIONS ASSOCIATE Primary open angle glaucoma (POAG) of right eye, severe stage from Last 3 Months Results * Sanchez Visual Field - OU - Both Eyes (05/05/2024 10:01 AM GUEST RELATIONS ASSOCIATE) Pattern Deviation OS 3.14 dB CONTINUUM Pattern Deviation OD 7.09 dB CONTINUUM Mean Deviation OS -3.54 dB CONTINUUM Mean Deviation OD -25.19 dB CONTINUUM Anatomical Region Laterality Modality Head Other Narrative 05/05/2024 10:46 AM GUEST RELATIONS ASSOCIATE Right Eye Fixation was good. Cooperation was [...] OU - Both Eyes (05/05/2024 10:01 AM GUEST RELATIONS ASSOCIATE) RNFL OS 85 micrometers CONTINUUM RNFL OD 73 micrometers CONTINUUM Anatomical Region Laterality Modality Head Other Narrative 05/05/2024 10:46 AM GUEST RELATIONS ASSOCIATE Right Eye Reliability was good. 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
--- OUTSIDE RECORDS SUMMARY | 2024-06-02 09:27 | XMS_ITS | Referral Summary ---
Author Organization [facility] Address [address] [place] [address] Phone Care Team Providers Care Account Development Representative Name Role Phone Roxann Albarran DO Primary Care Provider [phone] Encounters Date Type Department Care Team Description 05/05/2024 10:00 AM CLINICAL INFORMATION SYSTEMS DIRECTOR Office Visit [facility] [address] [place] [phone] Selina Browning MD Primary open angle glaucoma (POAG) of right eye, severe stage (Primary Dx) 05/05/2024 9:50 AM CLINICAL INFORMATION SYSTEMS DIRECTOR Imaging Exam [facility] [address] [place] [phone] Primary open angle glaucoma (POAG) of right eye, severe stage 05/05/2024 9:30 AM CLINICAL INFORMATION SYSTEMS DIRECTOR Imaging Exam [facility] [address] [place] [address] [phone] Primary open angle glaucoma (POAG) of right eye, severe stage 05/04/2024 Orders Only [facility] [address] [place] [address] [phone] Selina Browning MD Primary open angle glaucoma (POAG) of right eye, severe stage (Primary Dx) 03/28/2024 2:45 PM CLINICAL INFORMATION SYSTEMS DIRECTOR Office Visit [facility] [address] [place] [address] [address] [place] [phone] Terrell Izaguirre PA Actinic keratosis (Primary Dx); Seborrheic keratosis; Abrasion; History of nonmelanoma skin cancer from Last 3 Months Allergies Active Allergy Reactions Criticality Noted Date Comments Acyclovir Nausea only Low 09/27/2017 GI distress Wheat Headache Low 12/17/2022 Upset stomach Medications vit P-wciszagsgk-j ioflavonoids 500-100-100 mg tabletIndicati ons:supplement Take 1 [...] 11/26/2019 Assessment & Plan (05/05/2024 10:43 AM CLINICAL INFORMATION SYSTEMS DIRECTOR): S/p Molteno OD 12/2022 HVF with possible [...] (HVF)/RNFL Assessment & Plan (06/04/2023 10:00 AM CLINICAL INFORMATION SYSTEMS DIRECTOR): IOP s/p Molteno OD doing well Wants to try off cosopt Trial off cosopt IOP check in 2 months Assessment & Plan (02/22/2023 10:23 AM CLINICAL INFORMATION SYSTEMS DIRECTOR): POM#2 s/p Molteno OD - IOP improved, [...] planned Assessment & Plan (06/08/2022 4:26 PM CLINICAL INFORMATION SYSTEMS DIRECTOR): OD with progression on HVF today IOP [...] concerns Assessment & Plan (06/21/2020 10:30 AM CLINICAL INFORMATION SYSTEMS DIRECTOR): F/u Dr. Browning as planned Assessment & [...] 04/28/2018 Assessment & Plan (06/04/2023 10:01 AM CLINICAL INFORMATION SYSTEMS DIRECTOR): Keep PF daily OD Assessment & Plan (07/31/2022 11:28 AM CDT): Stable Cont PF OD qd F/u me prn Assessment & Plan (07/31/2021 12:11 PM CDT): Clear graft PF OD qd RTC me 1 yr Assessment & Plan (08/19/2020 2:37 PM CDT): Continue PF once daily OD Assessment & Plan (06/21/2020 10:31 AM CLINICAL INFORMATION SYSTEMS DIRECTOR): Clear graft PF OD qd RTC me 1 yr Assessment & Plan (11/26/2019 5:00 PM CDT): H/o DSEK OD, clear graft stable Assessment & Plan (06/15/2019 12:23 PM CLINICAL INFORMATION SYSTEMS DIRECTOR): Graft clear, pt has some subjective vision changes HVF today with mild nonspecific changes Repeat HVF in 1 year Pred Forte OD q.day Assessment & Plan (06/14/2018 2:40 PM CLINICAL INFORMATION SYSTEMS DIRECTOR): Stable Pred Forte OD q.day Sensory hearing [...] prn Assessment & Plan (06/08/2022 4:25 PM CLINICAL INFORMATION SYSTEMS DIRECTOR): Follows with Dr. Fabian Assessment & Plan [...] time. Assessment & Plan (06/21/2020 10:28 AM CLINICAL INFORMATION SYSTEMS DIRECTOR): No change from previous photoo Keep appt [...] time. Assessment & Plan (06/15/2019 1:20 PM CLINICAL INFORMATION SYSTEMS DIRECTOR): Images from the original note were not [...] way. Assessment & Plan (06/14/2018 2:41 PM CLINICAL INFORMATION SYSTEMS DIRECTOR): Stable today, recommend observation. Return in 1 year Assessment & Plan (05/19/2018 12:12 PM CLINICAL INFORMATION SYSTEMS DIRECTOR): Stable today, recommend observation. 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 RTC 9-12 months. Pseudophakia, both eyes 10/05/2017 Assessment & Plan (12/07/2022 2:31 PM CDT): Stable OU Assessment & Plan (06/08/2022 4:25 PM CLINICAL INFORMATION SYSTEMS DIRECTOR): Stable both eyes Assessment & Plan (11/26/2019 5:01 PM CDT): Stable OU, s/p YAG OD Assessment & Plan (01/18/2019 10:03 AM CDT): Stable today, recommend observation. Assessment & Plan (04/28/2018 11:49 AM CLINICAL INFORMATION SYSTEMS DIRECTOR): stable Basal cell carcinoma (BCC) of upper lip 06/02/19 18 Squamous cell carcinoma in situ (SCCIS) of skin 06/02/2017 Lentigo 10/26/2016 Actinic keratosis 08/28/2014 Benign neoplasm of soft tissues 08/28/2014 Sensorineural hearing loss (SNHL) of both ears 1 05/27/2013 Immunizations Name Administration Dates Next Due Itugo (J&J) SARS-CoV-2 Vaccination 11/01/2020 Social History Tobacco [...] on file Legal Sex Female 6:45 PM CLINICAL INFORMATION SYSTEMS DIRECTOR Gender Identity Not on file Sexual Orientation [...] on file Medical Devices Implanted Type Area Deli/Bakery Associate Device Identifier Shelf Expiration Date Model / Serial / Lot [facility] Tutoplast Iopatch 1x.6cm Dehydrate Processed Allograft Graft Soft 70490 - [id number] - [id number] Implanted:Qty : 1 on 12/24/2022 by Selina Browning MD at [facility] Other - see comments [employer] [id number] 06/17/2027 [id number] / [id number] / [id number] [employer] Implant Molteno Gen 3-185 Ss-185 - [id number] - [id number] Implanted:Qty : 1 on 12/24/2022 by Selina Browning MD at [facility] Tube Right: Eye [employer] [id number] 01/13/2027 SS-185 / 815 / [id number] Procedures Procedure Name Priority Date/Time Associated Diagnosis Comments SANCHEZ VISUAL FIELD - OU - BOTH EYES Routine 05/05/2024 10:01 AM CLINICAL INFORMATION SYSTEMS DIRECTOR Primary open angle glaucoma (POAG) of right eye, severe stage OCT, OPTIC NERVE - OU - BOTH EYES Routine 05/05/2024 10:01 AM CLINICAL INFORMATION SYSTEMS DIRECTOR Primary open angle glaucoma (POAG) of right eye, severe stage from Last 3 Months Results * Sanchez Visual Field - OU - Both Eyes (05/05/2024 10:01 AM CLINICAL INFORMATION SYSTEMS DIRECTOR) Pattern Deviation OS 3.14 dB CONTINUUM Pattern Deviation OD 7.09 dB CONTINUUM Mean Deviation OS -3.54 dB CONTINUUM Mean Deviation OD -25.19 dB CONTINUUM Anatomical Region Laterality Modality Head Other Narrative 05/05/2024 10:46 AM CLINICAL INFORMATION SYSTEMS DIRECTOR Right Eye Fixation was good. Cooperation was [...] OU - Both Eyes (05/05/2024 10:01 AM CLINICAL INFORMATION SYSTEMS DIRECTOR) RNFL OS 85 micrometers CONTINUUM RNFL OD 73 micrometers CONTINUUM Anatomical Region Laterality Modality Head Other Narrative 05/05/2024 10:46 AM CLINICAL INFORMATION SYSTEMS DIRECTOR Right Eye Reliability was good. 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
--- OUTSIDE RECORDS SUMMARY | 2024-06-02 09:27 | XMS_ITS ---
Author Organization [facility] Address [address] [place] [address] Phone Care Team Providers Care Freight Clerk Name Role Phone Roxann Albarran DO Primary Care Provider [phone]- [phone] Active Problems Problem Noted Date Diagnosed Date [...] 11/26/2019 Assessment & Plan (05/05/2024 10:43 AM TOOL BUILDER): S/p Molteno OD 12/2022 HVF with possible [...] (HVF)/RNFL Assessment & Plan (06/04/2023 10:00 AM TOOL BUILDER): IOP s/p Molteno OD doing well Wants to try off cosopt Trial off cosopt IOP check in 2 months Assessment & Plan (02/22/2023 10:23 AM TOOL BUILDER): POM#2 s/p Molteno OD - IOP improved, [...] planned Assessment & Plan (06/08/2022 4:26 PM TOOL BUILDER): OD with progression on HVF today IOP [...] concerns Assessment & Plan (06/21/2020 10:30 AM TOOL BUILDER): F/u Dr. Browning as planned Assessment & [...] 04/28/2018 Assessment & Plan (06/04/2023 10:01 AM TOOL BUILDER): Keep PF daily OD Assessment & Plan (07/31/2022 11:28 AM CDT): Stable Cont PF OD qd F/u me prn Assessment & Plan (07/31/2021 12:11 PM CDT): Clear graft PF OD qd RTC me 1 yr Assessment & Plan (08/19/2020 2:37 PM CDT): Continue PF once daily OD Assessment & Plan (06/21/2020 10:31 AM TOOL BUILDER): Clear graft PF OD qd RTC me 1 yr Assessment & Plan (11/26/2019 5:00 PM CDT): H/o DSEK OD, clear graft stable Assessment & Plan (06/15/2019 12:23 PM TOOL BUILDER): Graft clear, pt has some subjective vision changes HVF today with mild nonspecific changes Repeat HVF in 1 year Pred Forte OD q.day Assessment & Plan (06/14/2018 2:40 PM TOOL BUILDER): Stable Pred Forte OD q.day Sensory hearing [...] prn Assessment & Plan (06/08/2022 4:25 PM TOOL BUILDER): Follows with Dr. Fabian Assessment & Plan [...] time. Assessment & Plan (06/21/2020 10:28 AM TOOL BUILDER): No change from previous photoo Keep appt [...] time. Assessment & Plan (06/15/2019 1:20 PM TOOL BUILDER): Images from the original note were not [...] way. Assessment & Plan (06/14/2018 2:41 PM TOOL BUILDER): Stable today, recommend observation. Return in 1 year Assessment & Plan (05/19/2018 12:12 PM TOOL BUILDER): Stable today, recommend observation. 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 RTC 9-12 months. Pseudophakia, both eyes 10/05/2017 Assessment & Plan (12/07/2022 2:31 PM CDT): Stable OU Assessment & Plan (06/08/2022 4:25 PM TOOL BUILDER): Stable both eyes Assessment & Plan (11/26/2019 5:01 PM CDT): Stable OU, s/p YAG OD Assessment & Plan (01/18/2019 10:03 AM CDT): Stable today, recommend observation. Assessment & Plan (04/28/2018 11:49 AM TOOL BUILDER): stable Basal cell carcinoma (BCC) of upper [...] treatments are documented for this patient in [facility]. Treatments may have been administered in another system. Lifetime Dose Tracking * Chemical Lifetime Dose Automatic Entry Manual Entr y Air kerma at the reference point (Ka,r) 111 mGy 0 mGy 111 mGy DLP 1,066 mGycm 1,066 mGycm 0 mGycm
--- OUTSIDE RECORDS SUMMARY | 2024-06-02 09:27 | XMS_ITS | Continuity of Care Document ---
Author Organization formerly [facility] Address [address] [place] [address] [place] [address] Phone Care Team Providers Care Lead Security Officer Name Role Phone Gulshan Pace DO Unavailable Unavailable Advance Directives Directive Yes / No Effective Date File Name No Information Encounters Encounter Description Practice Location Reason(s) For Visit Diagnoses Date Provider Providers Copied on Encounter [facility], [address] [place] [address] [address], [place], [place], [id number], [place] tel:[phone] [facility] No Information Katelynn Salazar. [address] [place], [address], [place]. tel: [phone] Family History Family Member Type Diagnosis Age At Onset No Information Payers Payer name Insurance type Covered green party ID Authoriza tion(s) No Information Social [...]
[2024-06-02 09:31] VITALS: BP 119/62; PULSE 66; RESP 16; TEMP 36.5; O2SAT 96
[2024-06-02 10:40] VITALS: BP 143/66; PULSE 65; RESP 18; O2SAT 99
--- NOTE | 2024-06-02 10:52 | ED.FALL ---
HPI - Fall General Chief Complaint: Fall Stated Complaint: fall Time Seen by Provider: 06/02/24 10:41 History of Present Illness HPI Narrative: 88-year-old female with history of thyroid disorder and grade 1 diastolic dysfunction on 20 mg of Lasix presents to the emergency department with granddaughter at bedside for head injury that occurred prior to arrival. Patient states she was walking in her house when she stepped on something sharp, bent down to pick it up and slipped and fell. States she hit the right side of her head on the refrigerator. She did not lose consciousness. She is not anticoagulated. She knows she also hit her right shoulder is reporting pain to this region along with a right-sided headache. Denies vision changes, focal numbness or weakness, other injuries acquired. Patient also states she has been having a cough for several years since she had COVID in 2020, however over the past month the cough is worsened. States it is productive. Denies chest pain or shortness of breath, fever. Related Data Home Medications ?Medication ?Instructions ?Recorded ?Confirmed ?Last Taken ?Type ascorbic acid (vitamin C) 1,000 mg 1 g PO DAILY 10/30/22 06/02/24 06/01/24 History capsule prednisolone acetate 1 % eye 1 drp RIGHT EYE DAILY 10/30/22 06/02/24 06/01/24 History drops,suspension furosemide 20 mg tablet 20 mg PO DAILY 09/28/23 06/02/24 06/01/24 History dorzolamide-timolol (PF) 2 %-0.5 % 1 drp EACH EYE BID 11/01/23 06/02/24 06/01/24 History eye drops in a dropperette Allergies Allergy/AdvReac Type Severity Reaction Status Date / Time acyclovir Allergy Mild Nausea and Verified 06/02/24 10:39 Vomiting Review of Systems Review of Systems: All systems reviewed & are unremarkable except as noted in HPI and below PMFSH Past Medical History Medical History History of hypothyroidism Glaucoma Family History Family History Father Hypertension Grandparent Diabetes mellitus Social History Social History Smoking status: Former smoker (for 1 year) Alcohol intake: current Substance use: never Substance use type: does not use Lack of Transportation: No Lack of Food: Never True Current Housing: I Have Housing Concerned About Future Housing: No Difficulty Paying Gas/Electric Bills: No Difficulty Paying for Meds: No Currently Unemployed: No Education: Master's Degree or Higher Difficulty w/ Childcare or Family Care: No Exam Narrative: GENERAL: Well-appearing, well-nourished, and in no acute distress. HEAD: Normocephalic, atraumatic. No ecchymosis, lacerations, abrasions crepitus or deformities to scalp EYES: PERRLA and EOMI. No tenderness to orbits bilaterally ENT: Nares clear, no rhinorrhea or epistaxis. Mucous membranes moist. NECK: Diffuse tenderness throughout the cervical spine and paraspinous muscles with no crepitus, step-offs or deformities BACK: No thoracolumbar spinous tenderness, crepitus, step-offs or deformities CHEST: Crackles in the right upper lung field, remainder lung sounds are clear. Patient satting 99% on room air in no respiratory distress HEART: Regular rate and rhythm. No murmur heard. Normal peripheral pulses. ABDOMEN: Soft, nontender, nondistended, normal active bowel sounds. EXTREMITIES: Tenderness over the right acromion overlying deformity, full active and passive range of motion of shoulder, no tenderness remainder of extremity. Radial pulse 2 +. Sensation intact throughout. Radial, median ulnar nerves are intact. No tenderness remainder of upper or lower extremities SKIN: Warm, dry, no rash. NEURO: No focal deficits. Alert and oriented x3. Moving all extremities spontaneously Course Vital Signs Vital signs: Vital Signs Temperature 97.7 F 06/02/24 09:31 Pulse Rate 66 06/02/24 09:31 Respiratory Rate 16 06/02/24 09:31 Blood Pressure 119/62 06/02/24 09:31 Pulse Oximetry 96 06/02/24 09:31 Temperature 97.7 F 06/02/24 09:31 Pulse Rate 65 06/02/24 10:40 Respiratory Rate 18 06/02/24 10:40 Blood Pressure 143/66 H 06/02/24 10:40 Pulse Oximetry 99 06/02/24 10:40 MDM - Fall MDM Narrative Medical decision making narrative: 88-year-old female presents to emergency department for a ground level mechanical fall that occurred prior to arrival. Patient did hit her head, no LOC, she is not anticoagulated. She is neurovascularly intact. Exam is significant for the above. CT brain shows normal aging brain with no fracture or acute intracranial process. 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 CT cervical spine shows severe cervical spondylosis with instrumented C4-C5 anterior spinal fusion, no acute osseous abnormality. There is evidence of right upper lobe pneumonia. Patient does endorse an increased productive cough over the past month. Will obtain dedicated chest x-ray and lab work. Lab work without leukocytosis. Hemoglobin is 10.5, most recent hemoglobin was December 2023 which was 12.3. Patient denies signs or symptoms of GI bleed. Chemistries are largely unremarkable. Viral swabs are negative. Chest x-ray shows subtle opacities in the right upper lung zone consistent with pneumonia. BNP is elevated at 474 but normal when age adjusted. Patient and granddaughter at bedside are updated on results. No recent surgeries or hospitalizations. Curb 65 is 1. Vitals remain stable. Feel she is safe for d/c. Will start the patient on Augmentin and azithromycin and advised close follow-up with her PCP. She has an apt with PCP next week which I encouraged her to attend. Strict return precautions discussed. She and granddaughter are agreeable with the plan verbalized understanding. Discharged in stable condition. Lab Data 06/02/24 11:10 06/02/24 11:10 Labs: Lab Results 06/02/24 Range/Units 11:10 WBC 9.4 (4.5-10.0) K/mm3 RBC 3.41 L (4.2-5.4) M/mm3 Hgb 10.5 L (12.0-15.0) g/dL Hct 33.1 L (37.0-47.0) % MCV 97.1 (80-100) fl MCH 30.8 (26-34) pg MCHC 31.7 L (32-36) g/dl RDW 12.6 (11.5-14.5) % Plt Count 304 D (150-375) k/mm3 MPV 9.6 (7.4-10.4) fl Immature Gran % (Auto) 0.4 (0-0.5) % Neut % (Auto) 81.3 H (45.5-73.1) % Lymph % (Auto) 8.3 L (18.3-44.2) % [place] % (Auto) 9.5 H (2.6-8.5) % Eos % (Auto) 0.4 (0-4.4) % Baso % (Auto) 0.1 L (0.2-1.2) % Lymph # (Auto) 0.78 L (0.9-3.2) K/mm3 [place] # (Auto) 0.9 H (0.1-0.6) K/mm3 Eos # (Auto) 0.0 (0-0.3) K/mm3 Baso # (Auto) 0.0 (0.0-0.1) K/mm3 Abs Immat Gran (auto) 0.04 H (0.00-0.031) K/mm3 Absolute Neuts (auto) 7.7 H (1.3-6.7) K/mm3 Absolute Nucleated RBC 0.000 (0.0-0.012) K/mm3 Nucleated RBC % 0.0 (0.0-0.2) % Sodium 134 L (137-145) mmol/L Potassium 3.7 (3.4-5.0) mmol/L Chloride 99 (98-107) mmol/L Carbon Dioxide 29 (22-30) mmol/L Anion Gap 6 (4-12) mmol/L BUN 17 (7-17) mg/dL Creatinine 0.53 L (0.7-1.0) mg/dL Estim Creat Clear Calc 42 ml/min Estimated GFR > 60 (59 - ) Glucose 89 (65-110) mg/dL Calcium 8.2 L (8.4-10.2) mg/dL Total Bilirubin 0.4 (0.2-1.3) mg/dL AST 20 (14-36) U/L ALT 12 (6-35) U/L Alkaline Phosphatase 108 (38-126) U/L NT-Pro-B Natriuret Pep 474 H (19.9-100) pg/mL Total Protein 7.0 (6.3-8.2) g/dL Albumin 3.1 L (3.5-5.1) g/dL Influenza A (RT-PCR) Negative (Negative) Influenza B (RT-PCR) Negative (Negative) RSV (RT-PCR) Negative (Negative) SARS-CoV-2 RNA (RT-PCR) Negative (Negative) Discharge Plan Discharge Clinical Impression: Normocytic anemia CAP (community acquired pneumonia) Qualifiers: Laterality: right Lung location: upper lobe of lung Qualified Code(s): J18.9 - Pneumonia, unspecified organism Closed head injury Qualifiers: Encounter type: initial encounter Qualified Code(s): S09.90XA - Unspecified injury of head, initial encounter Patient Disposition: Home, Self-Care Condition: Stable Instructions: Antibiotic Form, Head Injury (ED), Community Acquired Pneumonia (DC) Additional Instructions: You were evaluated in the emergency department after a fall. The CT of your brain shows no acute findings or brain bleeds. The CT of your neck shows a lot of arthritis but no broken bones. The x-ray of her shoulder shows arthritis but no broken bones. The CT scan of your neck did reveal pneumonia of your lungs which was confirmed on chest x-ray. I have started you on antibiotics, please take these as directed. Your lab work is remarkable for a low hemoglobin. Please follow-up with your primary care provider at your appointment on and have your labs rechecked. Return to the emergency department if you develop vision changes, focal numbness or weakness, chest pain or shortness of breath, fever of 100.4 or higher, confusion, seizure-like activity, vomiting or other concerning symptoms. You can take 500 mg of Tylenol as needed every 6 hours for pain. Patient Language: Armenian Prescriptions: New amoxicillin-pot clavulanate 875-125 mg tablet 1 tablet PO Q12H Qty: 14 0RF azithromycin 250 mg tablet See Rx Instructions .ROUTE .COMPLEX Qty: 6 0RF Rx Instructions: For 250 mg dose pack: take 500 mg today (day 1), then 250 mg for 4 days (days 2-5) No Action furosemide 20 mg tablet 20 mg PO DAILY dorzolamide-timolol (PF) 2-0.5 % dropperette 1 drp EACH EYE BID prednisolone acetate 1 % drops,suspension 1 drp RIGHT EYE DAILY ascorbic acid (vitamin C) 1,000 mg capsule 1 g PO DAILY levothyroxine 50 mcg tablet 50 mcg PO DAILY Qty: 90 1RF Follow-up/Referrals: Roxann Albarran DO [Primary Care Provider] -
[2024-06-02] MEDS: ACETAMINOPHEN 325 MG TABLET 650 MG PO (11:06)
--- OUTSIDE RECORDS SUMMARY | 2024-06-02 11:10 | XMS_ITS | Encounter Summary ---
Author Organization [facility] Address [address] 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
--- OUTSIDE RECORDS SUMMARY | 2024-06-02 11:11 | XMS_ITS ---
Author Organization [facility] Address [address] [place] [address] Phone Care Team Providers Care Harness Racing Handicapper Name Role Phone Roxann Albarran DO Primary Care Provider [phone] Active Problems Problem Noted Date Diagnosed Date [...] 11/26/2019 Assessment & Plan (05/05/2024 10:43 AM COMMERCIAL ESCROW OFFICER): S/p Molteno OD 12/2022 HVF with possible [...] (HVF)/RNFL Assessment & Plan (06/04/2023 10:00 AM COMMERCIAL ESCROW OFFICER): IOP s/p Molteno OD doing well Wants to try off cosopt Trial off cosopt IOP check in 2 months Assessment & Plan (02/22/2023 10:23 AM COMMERCIAL ESCROW OFFICER): POM#2 s/p Molteno OD - IOP improved, [...] planned Assessment & Plan (06/08/2022 4:26 PM COMMERCIAL ESCROW OFFICER): OD with progression on HVF today IOP [...] concerns Assessment & Plan (06/21/2020 10:30 AM COMMERCIAL ESCROW OFFICER): F/u Dr. Browning as planned Assessment & [...] 04/28/2018 Assessment & Plan (06/04/2023 10:01 AM COMMERCIAL ESCROW OFFICER): Keep PF daily OD Assessment & Plan (07/31/2022 11:28 AM CDT): Stable Cont PF OD qd F/u me prn Assessment & Plan (07/31/2021 12:11 PM CDT): Clear graft PF OD qd RTC me 1 yr Assessment & Plan (08/19/2020 2:37 PM CDT): Continue PF once daily OD Assessment & Plan (06/21/2020 10:31 AM COMMERCIAL ESCROW OFFICER): Clear graft PF OD qd RTC me 1 yr Assessment & Plan (11/26/2019 5:00 PM CDT): H/o DSEK OD, clear graft stable Assessment & Plan (06/15/2019 12:23 PM COMMERCIAL ESCROW OFFICER): Graft clear, pt has some subjective vision changes HVF today with mild nonspecific changes Repeat HVF in 1 year Pred Forte OD q.day Assessment & Plan (06/14/2018 2:40 PM COMMERCIAL ESCROW OFFICER): Stable Pred Forte OD q.day Sensory hearing [...] prn Assessment & Plan (06/08/2022 4:25 PM COMMERCIAL ESCROW OFFICER): Follows with Dr. Fabian Assessment & Plan [...] time. Assessment & Plan (06/21/2020 10:28 AM COMMERCIAL ESCROW OFFICER): No change from previous photoo Keep appt [...] time. Assessment & Plan (06/15/2019 1:20 PM COMMERCIAL ESCROW OFFICER): Images from the original note were not [...] way. Assessment & Plan (06/14/2018 2:41 PM COMMERCIAL ESCROW OFFICER): Stable today, recommend observation. Return in 1 year Assessment & Plan (05/19/2018 12:12 PM COMMERCIAL ESCROW OFFICER): Stable today, recommend observation. 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 RTC 9-12 months. Pseudophakia, both eyes 10/05/2017 Assessment & Plan (12/07/2022 2:31 PM CDT): Stable OU Assessment & Plan (06/08/2022 4:25 PM COMMERCIAL ESCROW OFFICER): Stable both eyes Assessment & Plan (11/26/2019 5:01 PM CDT): Stable OU, s/p YAG OD Assessment & Plan (01/18/2019 10:03 AM CDT): Stable today, recommend observation. Assessment & Plan (04/28/2018 11:49 AM COMMERCIAL ESCROW OFFICER): stable Basal cell carcinoma (BCC) of upper [...] treatments are documented for this patient in [facility]. Treatments may have been administered in another system. Lifetime Dose Tracking * Chemical Lifetime Dose Automatic Entry Manual Entr y Air kerma at the reference point (Ka,r) 111 mGy 0 mGy 111 mGy DLP 1,066 mGycm 1,066 mGycm 0 mGycm
--- OUTSIDE RECORDS SUMMARY | 2024-06-02 11:13 | XMS_ITS | Referral Summary ---
Author Organization [facility] Address [address] [place] [address] Phone Care Team Providers Care Education Rn Name Role Phone Roxann Albarran DO Primary Care Provider [phone] Encounters Date Type Department Care Team Description 05/05/2024 10:00 AM MOP HANDLE ASSEMBLER Office Visit [facility] Op[facility] [address] [place] [phone] Selina Browning MD Primary open angle glaucoma (POAG) of right eye, severe stage (Primary Dx) 05/05/2024 9:50 AM MOP HANDLE ASSEMBLER Imaging Exam [facility] [address] [place] [phone] Primary open angle glaucoma (POAG) of right eye, severe stage 05/05/2024 9:30 AM MOP HANDLE ASSEMBLER Imaging Exam [facility] [address] [place] [phone] Primary open angle glaucoma (POAG) of right eye, severe stage 05/04/2024 Orders Only [facility] [address] [place] [phone] Selina Browning MD Primary open angle glaucoma (POAG) of right eye, severe stage (Primary Dx) 03/28/2024 2:45 PM MOP HANDLE ASSEMBLER Office Visit [facility] Dermatology [address] [place] [address] [address] [place] [phone] Terrell Izaguirre PA Actinic keratosis (Primary Dx); Seborrheic keratosis; Abrasion; History of nonmelanoma skin cancer from Last 3 Months Allergies Active Allergy Reactions Criticality Noted Date Comments Acyclovir Nausea only Low 09/27/2017 GI distress Wheat Headache Low 12/17/2022 Upset stomach Medications vit G-stpclnzlce-v ioflavonoids 500-100-100 mg tabletIndicati ons:supplement Take 1 [...] 11/26/2019 Assessment & Plan (05/05/2024 10:43 AM MOP HANDLE ASSEMBLER): S/p Molteno OD 12/2022 HVF with possible [...] (HVF)/RNFL Assessment & Plan (06/04/2023 10:00 AM MOP HANDLE ASSEMBLER): IOP s/p Molteno OD doing well Wants to try off cosopt Trial off cosopt IOP check in 2 months Assessment & Plan (02/22/2023 10:23 AM MOP HANDLE ASSEMBLER): POM#2 s/p Molteno OD - IOP improved, [...] planned Assessment & Plan (06/08/2022 4:26 PM MOP HANDLE ASSEMBLER): OD with progression on HVF today IOP [...] concerns Assessment & Plan (06/21/2020 10:30 AM MOP HANDLE ASSEMBLER): F/u Dr. Browning as planned Assessment & [...] 04/28/2018 Assessment & Plan (06/04/2023 10:01 AM MOP HANDLE ASSEMBLER): Keep PF daily OD Assessment & Plan (07/31/2022 11:28 AM CDT): Stable Cont PF OD qd F/u me prn Assessment & Plan (07/31/2021 12:11 PM CDT): Clear graft PF OD qd RTC me 1 yr Assessment & Plan (08/19/2020 2:37 PM CDT): Continue PF once daily OD Assessment & Plan (06/21/2020 10:31 AM MOP HANDLE ASSEMBLER): Clear graft PF OD qd RTC me 1 yr Assessment & Plan (11/26/2019 5:00 PM CDT): H/o DSEK OD, clear graft stable Assessment & Plan (06/15/2019 12:23 PM MOP HANDLE ASSEMBLER): Graft clear, pt has some subjective vision changes HVF today with mild nonspecific changes Repeat HVF in 1 year Pred Forte OD q.day Assessment & Plan (06/14/2018 2:40 PM MOP HANDLE ASSEMBLER): Stable Pred Forte OD q.day Sensory hearing [...] prn Assessment & Plan (06/08/2022 4:25 PM MOP HANDLE ASSEMBLER): Follows with Dr. Fabian Assessment & Plan (12/01/2021 2:14 PM CDT): Follows with Dr. Faiban for serial exams Assessment & Plan (10/30/2021 [...] time. Assessment & Plan (06/21/2020 10:28 AM MOP HANDLE ASSEMBLER): No change from previous photoo Keep appt [...] time. Assessment & Plan (06/15/2019 1:20 PM MOP HANDLE ASSEMBLER): Images from the original note were not [...] way. Assessment & Plan (06/14/2018 2:41 PM MOP HANDLE ASSEMBLER): Stable today, recommend observation. Return in 1 year Assessment & Plan (05/19/2018 12:12 PM MOP HANDLE ASSEMBLER): Stable today, recommend observation. 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 RTC 9-12 months. Pseudophakia, both eyes 10/05/2017 Assessment & Plan (12/07/2022 2:31 PM CDT): Stable OU Assessment & Plan (06/08/2022 4:25 PM MOP HANDLE ASSEMBLER): Stable both eyes Assessment & Plan (11/26/2019 5:01 PM CDT): Stable OU, s/p YAG OD Assessment & Plan (01/18/2019 10:03 AM CDT): Stable today, recommend observation. Assessment & Plan (04/28/2018 11:49 AM MOP HANDLE ASSEMBLER): stable Basal cell carcinoma (BCC) of upper lip 06/02/19 18 Squamous cell carcinoma in situ (SCCIS) of skin 06/02/2017 Lentigo 10/26/2016 Actinic keratosis 08/28/2014 Benign neoplasm of soft tissues 08/28/2014 Sensorineural hearing loss (SNHL) of both ears 1 05/27/2013 Immunizations Name Administration Dates Next Due Sociogramics (J&J) SARS-CoV-2 Vaccination 11/01/2020 Social History Tobacco [...] on file Legal Sex Female 6:45 PM MOP HANDLE ASSEMBLER Gender Identity Not on file Sexual Orientation [...] on file Medical Devices Implanted Type Area Dowel Pin Worker Device Identifier Shelf Expiration Date Model / Serial / Lot [employer] Tutoplast Iopatch 1x.6cm Dehydrate Processed Allograft Graft Soft 03414 - [id number] - [id number] Implanted:Qty : 1 on 12/24/2022 by Selina Browning MD at [facility] Other - see comments [id number] [id number] 06/17/2027 [id number] / [id number] / [id number] [employer] Implant Molteno Gen 3-185 Ss-185 - S815 - [id number] Implanted:Qty : 1 on 12/24/2022 by Selina Browning MD at [facility] Tube Right: Eye [employer] [id number] 01/13/2027 SS-185 / 815 / [id number] Procedures Procedure Name Priority Date/Time Associated Diagnosis Comments SANCHEZ VISUAL FIELD - OU - BOTH EYES Routine 05/05/2024 10:01 AM MOP HANDLE ASSEMBLER Primary open angle glaucoma (POAG) of right eye, severe stage OCT, OPTIC NERVE - OU - BOTH EYES Routine 05/05/2024 10:01 AM MOP HANDLE ASSEMBLER Primary open angle glaucoma (POAG) of right eye, severe stage from Last 3 Months Results * Sanchez Visual Field - OU - Both Eyes (05/05/2024 10:01 AM MOP HANDLE ASSEMBLER) Pattern Deviation OS 3.14 dB CONTINUUM Pattern Deviation OD 7.09 dB CONTINUUM Mean Deviation OS -3.54 dB CONTINUUM Mean Deviation OD -25.19 dB CONTINUUM Anatomical Region Laterality Modality Head Other Narrative 05/05/2024 10:46 AM MOP HANDLE ASSEMBLER Right Eye Fixation was good. Cooperation was [...] OU - Both Eyes (05/05/2024 10:01 AM MOP HANDLE ASSEMBLER) RNFL OS 85 micrometers CONTINUUM RNFL OD 73 micrometers CONTINUUM Anatomical Region Laterality Modality Head Other Narrative 05/05/2024 10:46 AM MOP HANDLE ASSEMBLER Right Eye Reliability was good. Temporal thickness [...] Last 3 Months Insurance [employer] MEDICARE MEDICARE [facility] Address: [address] [address] [place] [address] [facility] MEDICARE SOLUTIONS [facility] MEDICARE [facility] MEDICARE Advance Directives For more information, please contact: [phone] Documents on File Type Date Recorded Patient Real Estate Consultant Expl anation ADVANCE DIRECTIVE 12/24/2022 9:19 AM Power of Grain Merchandising Manager-Medical * Full Code (Latest Code Status on File) Date Activated Date Inactivated Comments 06/09/2023 9:53 AM 06/09/2023 5:15 PM * Full Code Date Activated Date Inactivated Comments 05/17/2018 11:10 AM 05/17/2018 4:31 PM Care Teams Education Rn Relationship Specialty Start Date End Date Roxann Albarran DO PCP - General Family Medicine 12/07/22
--- OUTSIDE RECORDS SUMMARY | 2024-06-02 11:13 | XMS_ITS | Clinical Summary ---
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 GERD (gastroesophageal reflux disease) 4 Family History Medical History Relation Name Comments Colon Cancer Neg Hx Social History Tobacco Use Types Packs/Day Years Used Date Smoking Tobacco: Never Alcohol Use Standard Drinks/Week Comments Yes 0 (1 standard drink = 0.6 oz pur e alcohol) Comments Unknown Sex and Gender Information Value Date Recorded Sex Assigned at Not on file Legal Sex Female 3:06 AM MAINTENANCE MACHINIST Gender Identity Not on file Sexual Orientation Not on file 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 Not on file Not on file Last Filed Vital Signs Vital Sign Reading Time Taken Comments Blood Pressure 120/70 12/12/2013 3:51 PM CDT Lef t Arm Pulse 68 12/12/2013 3:51 PM CDT Temperature - - Respiratory Rate - - Oxygen Saturation - - Inhaled Oxygen Concentration - - Weight 51.7 kg (114 lb) 12/12/2013 3:51 PM CDT Height 165.1 cm (5' 5 ) 12/12/2013 3:51 PM CDT Body Mass Index 18.97 12/12/2013 3:51 PM CDT Plan of Treatment Health Maintenance Due Date Last Done Comments DTAP/TDAP/TD VACCINES (1 - Tdap) 12/19/1954 PNEUMOCOCCAL VACCINE 65+ YEARS (1 of 1 - PCV) 12/19/18 86 ZOSTER VACCINE (1 of 2) 12/19/1985 OSTEOPOROSIS SCREENING 12/19/2000 RSV VACCINE (60+ or ) (1 - 1-dose 75+ series) 12/19/2010 INFLUENZA VACCINE (#1) 2023 Insurance MEDICARE PART A AND B [facility] Care Teams Activities Director Relationship Specialty Start Date End Date Cedrick Burnett MD [address] [address] PCP - General Internal Medicine 11/14/13
--- OUTSIDE RECORDS SUMMARY | 2024-06-02 11:13 | XMS_ITS | Clinical Summary ---
Author Organization [facility] Address [address] [place] [address] Phone Care Team Providers Care Inside Sales Engineer Name Role Phone Roxann Alabrran Kristal Primary Care Provider [phone] Allergies Active Allergy Reactions Criticality Noted Date Comments Acyclovir Nausea only Low 09/27/2017 GI distress Wheat Headache Low 12/17/2022 Upset stomach Medications vit C-hctamkqtvu-y ioflavonoids 500-100-100 mg tabletIndicati ons:supplement Take 1 [...] 11/26/2019 Assessment & Plan (05/05/2024 10:43 AM POULTRY FARMER MEAT): S/p Molteno OD 12/2022 HVF with possible [...] (HVF)/RNFL Assessment & Plan (06/04/2023 10:00 AM POULTRY FARMER MEAT): IOP s/p Molteno OD doing well Wants to try off cosopt Trial off cosopt IOP check in 2 months Assessment & Plan (02/22/2023 10:23 AM POULTRY FARMER MEAT): POM#2 s/p Molteno OD - IOP improved, [...] planned Assessment & Plan (06/08/2022 4:26 PM POULTRY FARMER MEAT): OD with progression on HVF today IOP [...] concerns Assessment & Plan (06/21/2020 10:30 AM POULTRY FARMER MEAT): F/u Dr. Browning as planned Assessment & [...] 04/28/2018 Assessment & Plan (06/04/2023 10:01 AM POULTRY FARMER MEAT): Keep PF daily OD Assessment & Plan (07/31/2022 11:28 AM CDT): Stable Cont PF OD qd F/u me prn Assessment & Plan (07/31/2021 12:11 PM CDT): Clear graft PF OD qd RTC me 1 yr Assessment & Plan (08/19/2020 2:37 PM CDT): Continue PF once daily OD Assessment & Plan (06/21/2020 10:31 AM POULTRY FARMER MEAT): Clear graft PF OD qd RTC me 1 yr Assessment & Plan (11/26/2019 5:00 PM CDT): H/o DSEK OD, clear graft stable Assessment & Plan (06/15/2019 12:23 PM POULTRY FARMER MEAT): Graft clear, pt has some subjective vision changes HVF today with mild nonspecific changes Repeat HVF in 1 year Pred Forte OD q.day Assessment & Plan (06/14/2018 2:40 PM POULTRY FARMER MEAT): Stable Pred Forte OD q.day Sensory hearing [...] prn Assessment & Plan (06/08/2022 4:25 PM POULTRY FARMER MEAT): Follows with Dr. Fabian Assessment & Plan [...] time. Assessment & Plan (06/21/2020 10:28 AM POULTRY FARMER MEAT): No change from previous photoo Keep appt [...] time. Assessment & Plan (06/15/2019 1:20 PM POULTRY FARMER MEAT): Images from the original note were not [...] way. Assessment & Plan (06/14/2018 2:41 PM POULTRY FARMER MEAT): Stable today, recommend observation. Return in 1 year Assessment & Plan (05/19/2018 12:12 PM POULTRY FARMER MEAT): Stable today, recommend observation. 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 RTC 9-12 months. Pseudophakia, both eyes 10/05/2017 Assessment & Plan (12/07/2022 2:31 PM CDT): Stable OU Assessment & Plan (06/08/2022 4:25 PM POULTRY FARMER MEAT): Stable both eyes Assessment & Plan (11/26/2019 5:01 PM CDT): Stable OU, s/p YAG OD Assessment & Plan (01/18/2019 10:03 AM CDT): Stable today, recommend observation. Assessment & Plan (04/28/2018 11:49 AM POULTRY FARMER MEAT): stable Basal cell carcinoma (BCC) of upper lip 06/02/19 18 Squamous cell carcinoma in situ (SCCIS) of skin 06/02/2017 Lentigo 10/26/2016 Actinic keratosis 08/28/2014 Benign neoplasm of soft tissues 08/28/2014 Sensorineural hearing loss (SNHL) of both ears 1 05/27/2013 Encounters Date Type Department Care Team Description 05/05/2024 10:00 AM POULTRY FARMER MEAT Office Visit [facility] [place] [address] Selina Browning MD Primary open angle glaucoma (POAG) of right eye, severe stage (Primary Dx) 05/05/2024 9:50 AM POULTRY FARMER MEAT Imaging Exam [facility] Op[facility]mology [address] [place] [phone] Primary open angle glaucoma (POAG) of right eye, severe stage 05/05/2024 9:30 AM POULTRY FARMER MEAT Imaging Exam [facility] Op[facility] [address] [place] [phone] Primary open angle glaucoma (POAG) of right eye, severe stage 05/04/2024 Orders Only [facility] [address] [place] [phone] Selina Browning MD Primary open angle glaucoma (POAG) of right eye, severe stage (Primary Dx) 03/28/2024 2:45 PM POULTRY FARMER MEAT Office Visit [facility] Dermatology [address] [place] [address] [address] [place] [phone] Terrell Izaguirre PA Actinic keratosis (Primary Dx); Seborrheic keratosis; Abrasion; History of nonmelanoma skin cancer from Last 3 Months Immunizations Name Administration Dates Next Due Pheed (J&J) SARS-CoV-2 Vaccination 11/01/2020 Surgical History Surgery Date Site/Laterality Comments 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 - (Added by TW Conv) CATARACT EXTRACTION Right Cataract Surgery - (Added by TW Conv) AR KERATOPLASTY ANTERIOR LAMELLAR Right Cornea Transplant - [...] Blood transfusion declined b ecause patient is [facility] Family History Medical History Relation Name Comments [...] on file Legal Sex Female 6:45 PM POULTRY FARMER MEAT Gender Identity Not on file Sexual Orientation [...] 07/08/19 23 Medical Devices Implanted Type Area Retread Mold Operator Device Identifier Shelf Expiration Date Model / Serial / Lot [employer] Tutoplast Iopatch 1x.6cm Dehydrate Processed Allograft Graft Soft 03506 - [id number] - [id number] Implanted:Qty : 1 on 12/24/2022 by Selina Browning MD at [facility] Other - see comments [employer] [id number] 06/17/2027 [id number] / [id number] / [id number] [employer] Implant Molteno Gen 3-185 Ss-185 - S815 - [id number] Implanted:Qty : 1 on 12/24/2022 by Selina Browning MD at [facility] Tube Right: Eye [employer] [id number] 01/13/2027 SS-185 / 815 / [id number] Procedures Procedure Name Priority Date/Time Associated Diagnosis Comments SANCHEZ VISUAL FIELD - OU - BOTH EYES Routine 05/05/2024 10:01 AM POULTRY FARMER MEAT Primary open angle glaucoma (POAG) of right eye, severe stage OCT, OPTIC NERVE - OU - BOTH EYES Routine 05/05/2024 10:01 AM POULTRY FARMER MEAT Primary open angle glaucoma (POAG) of right eye, severe stage from Last 3 Months Results * Sanchez Visual Field - OU - Both Eyes (05/05/2024 10:01 AM POULTRY FARMER MEAT) Pattern Deviation OS 3.14 dB CONTINUUM Pattern Deviation OD 7.09 dB CONTINUUM Mean Deviation OS -3.54 dB CONTINUUM Mean Deviation OD -25.19 dB CONTINUUM Anatomical Region Laterality Modality Head Other Narrative 05/05/2024 10:46 AM POULTRY FARMER MEAT Right Eye Fixation was good. Cooperation was [...] OU - Both Eyes (05/05/2024 10:01 AM POULTRY FARMER MEAT) RNFL OS 85 micrometers CONTINUUM RNFL OD 73 micrometers CONTINUUM Anatomical Region Laterality Modality Head Other Narrative 05/05/2024 10:46 AM POULTRY FARMER MEAT Right Eye Reliability was good. Temporal thickness [...] Last 3 Months Insurance [employer] MEDICARE MEDICARE [facility] MEDICARE SOLUTIONS [facility] MEDICARE [facility] MEDICARE Advance Directives For more information, please contact: [phone] Documents on File Type Date Recorded Patient Aerial Erector Expl anation ADVANCE DIRECTIVE 12/24/2022 9:19 AM Power of Phosphatic Fertilizer Supervisor-Medical * Full Code (Latest Code Status on File) Date Activated Date Inactivated Comments 06/09/2023 9:53 AM 06/09/2023 5:15 PM * Full Code Date Activated Date Inactivated Comments 05/17/2018 11:10 AM 05/17/2018 4:31 PM Care Teams Inside Sales Engineer Relationship Specialty Start Date End Date Roxann Albarran DO PCP - General Family Medicine 12/07/22
--- OUTSIDE RECORDS SUMMARY | 2024-06-02 11:13 | XMS_ITS | Encounter Summary ---
Author Organization [facility] Address [address] [place] [address] Care Team Providers Care Child And Adolescent Psychologist Name Role Phone Cedrick Burnett MD Primary Care Provider [phone] Encounter Details Date Type Department Care Team (Late st Contact Info) Description 01/28/1998 Outpatient Historical [address] [phone] Joanie Crooks MD NO ADDRESS ON FILE Social History Tobacco Use Types Packs/Day Years Used Date Smoking Tobacco: Never Assessed Comments Unknown Sex and Gender Information Value Date Recorded Sex Assigned at Not on file Legal Sex Female 3:06 AM ACQUISITION ANALYST Gender Identity Not on file Sexual Orientation Not on file documented as of this encounter Plan of Treatment Not on file documented as of this encounter Visit Diagnoses Not on filedocumented in this encounter Care Teams Child And Adolescent Psychologist Relationship Specialty Start Date End Date Cedrick Burnett MD [address] [facility] [address] [place] [phone] PCP - General Internal Medicine 11/14/13 documented as of this encounter
--- OUTSIDE RECORDS SUMMARY | 2024-06-02 11:13 | XMS_ITS | Encounter Summary ---
Author Organization [facility] Address [address] [place] [address] Care Team Providers Care Dough Mixer Operator Name Role Phone Cedrick Burnett MD Primary Care Provider Encounter Details Date Type Department Care Team (Late st Contact Info) Description 02/27/2002 Outpatient Historical [address] [phone] Joanie Crooks MD NO ADDRESS ON FILE Social History Tobacco Use Types Packs/Day Years Used Date Smoking Tobacco: Never Assessed Comments Unknown Sex and Gender Information Value Date Recorded Sex Assigned at Not on file Legal Sex Female 3:06 AM GROUP WORK PROGRAM DIRECTOR Gender Identity Not on file Sexual Orientation Not on file documented as of this encounter Plan of Treatment Not on file documented as of this encounter Visit Diagnoses Not on filedocumented in this encounter Care Teams Dough Mixer Operator Relationship Specialty Start Date End Date Cedrick Burnett MD [address] [facility] [address] [place] [address] PCP - General Internal Medicine 11/14/13 documented as of this encounter
--- OUTSIDE RECORDS SUMMARY | 2024-06-02 11:13 | XMS_ITS | Encounter Summary ---
Author Organization [facility] Address [address] [place] [address] Care Team Providers Care Layout Mechanic Name Role Phone Cedrick Burnett MD Primary Care Provider Encounter Details Date Type Department Care Team (Late st Contact Info) Description 03/01/2000 Outpatient Historical [address] [phone] Joanie Crooks MD NO ADDRESS ON FILE Social History Tobacco Use Types Packs/Day Years Used Date Smoking Tobacco: Never Assessed Comments Unknown Sex and Gender Information Value Date Recorded Sex Assigned at Not on file Legal Sex Female 3:06 AM LINE PATROLLER Gender Identity Not on file Sexual Orientation Not on file documented as of this encounter Plan of Treatment Not on file documented as of this encounter Visit Diagnoses Not on filedocumented in this encounter Care Teams Layout Mechanic Relationship Specialty Start Date End Date Cedrick Burnett MD [address] [facility] [address] [place] [address] PCP - General Internal Medicine 11/14/13 documented as of this encounter
--- OUTSIDE RECORDS SUMMARY | 2024-06-02 11:13 | XMS_ITS | Encounter Summary ---
Author Organization [facility] Address 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
--- OUTSIDE RECORDS SUMMARY | 2024-06-02 11:13 | XMS_ITS | Continuity of Care Document ---
Author Organization [facility] Address [address] [place] [address] [place] [address] Phone Care Team Providers Care Mailroom Associate Name Role Phone Gulshan Pace DO Unavailable Unavailable Advance Directives Directive Yes / No Effective Date File Name No Information Encounters Encounter Description Practice Location Reason(s) For Visit Diagnoses Date Provider Providers Copied on Encounter [facility], [address] [place] [address] [address], [place], [place], [id number], [place] tel:[phone] [facility] No Information Katelynn Salazar. [address] [place], [address], [place]. tel: [phone] Family History Family Member Type Diagnosis Age At Onset No Information Payers Payer name Insurance type Covered republican ID Authoriza tion(s) No Information Social History [...]
--- OUTSIDE RECORDS SUMMARY | 2024-06-02 11:13 | XMS_ITS | Encounter Summary ---
Author Organization [facility] Address 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
--- OUTSIDE RECORDS SUMMARY | 2024-06-02 11:13 | XMS_ITS | Encounter Summary ---
Author Organization [facility] Address [address] [facility] [address] [facility] [address] 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
--- OUTSIDE RECORDS SUMMARY | 2024-06-02 11:13 | XMS_ITS | Encounter Summary ---
Author Organization [facility] Address 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
--- OUTSIDE RECORDS SUMMARY | 2024-06-02 11:13 | XMS_ITS | Encounter Summary ---
Author Organization [facility] Address [address] [facility] [address] 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
--- OUTSIDE RECORDS SUMMARY | 2024-06-02 11:13 | XMS_ITS | Encounter Summary ---
Author Organization [facility] Address [address] [facility] [address] 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
[2024-06-02 11:25] LABS: Basophils Percent Auto 0.1 % (0.2-1.2); Eosinophils Percent Auto 0.4 % (0-4.4); Hematocrit 33.1 % (37.0-47.0); Hemoglobin 10.5 g/dL (12.0-15.0); Immature Granulocyte Absolute 0.04 K/mm3 (0.00-0.031); Immature Granulocyte Percent A 0.4 % (0-0.5); Lymphocytes Absolute Auto 0.78 K/mm3 (0.9-3.2); Lymphocytes Percent Auto 8.3 % (18.3-44.2); Mean Corpuscular HGB Conc 31.7 g/dl (32-36); Mean Corpuscular Hemoglobin 30.8 pg (26-34); Mean Corpuscular Volume 97.1 fl (80-100); Mean Platelet Volume 9.6 fl (7.4-10.4); Monocytes Absolute Auto 0.9 K/mm3 (0.1-0.6); Monocytes Percent Auto 9.5 % (2.6-8.5); Neutrophils Absolute Auto 7.7 K/mm3 (1.3-6.7); Neutrophils Percent Auto 81.3 % (45.5-73.1); Platelet Count Result 304 k/mm3 (150-375); Red Blood Count 3.41 M/mm3 (4.2-5.4); Red Cell Distribution Width 12.6 % (11.5-14.5); White Blood Count 9.4 K/mm3 (4.5-10.0)
[2024-06-02 11:34] LABS: Alanine Aminotransferase 12 U/L (6-35); Albumin Level 3.1 g/dL (3.5-5.1); Alkaline Phosphatase 108 U/L (38-126); Anion Gap 6 mmol/L (4-12); Aspartate Amino Transferase 20 U/L (14-36); Bilirubin,Total 0.4 mg/dL (0.2-1.3); Blood Urea Nitrogen 17 mg/dL (7-17); Calcium 8.2 mg/dL (8.4-10.2); Carbon Dioxide 29 mmol/L (22-30); Chloride 99 mmol/L (98-107); Estimated CRCL calculation 42 ml/min; Estimated Glomerular Filt Rate > 60; Glucose 89 mg/dL (65-110); Potassium 3.7 mmol/L (3.4-5.0); Sodium 134 mmol/L (137-145)
[2024-06-02 11:42] LABS: NT Pro B Type Natriuretic Pept 474 pg/mL (19.9-100)
[2024-06-02 11:59] LABS: Influenza A QL RT-PCR Negative (Negative); Influenza B QL RT-PCR Negative (Negative); RSV RNA, RT-PCR Negative (Negative); SARS-CoV-2 RNA PCR Negative (Negative)
== END 2024-06-02 13:33 | disposition home or self-care (01) ==
PROVIDERS: Emergency Provider Physician Assistant; PCP Family Medicine
DX: S09.90XA Unspecified injury of head, initial encounter (principal); J18.9 Pneumonia, unspecified organism; D64.9 Anemia, unspecified; Z20.822 Contact with and (suspected) exposure to COVID-19; I51.89 Other ill-defined heart diseases; E03.9 Hypothyroidism, unspecified; H40.9 Unspecified glaucoma; Z87.891 Personal history of nicotine dependence; Z79.899 Other long term (current) drug therapy; M19.011 Primary osteoarthritis, right shoulder; M47.812 Spondylosis without myelopathy or radiculopathy, cervical region; Z98.1 Arthrodesis status; W01.198A Fall on same level from slipping, tripping and stumbling with subsequent striking against other object, initial encounter
CPT/HCPCS: 36415; 70450; 71045; 72125; 73030; 80053; 83880; 85025; 87637; 99284; A9270

== ENCOUNTER 2024-06-05 09:08 | Outpatient (CLI) | payer MEDICARE, SELFPAY ==
--- OUTSIDE RECORDS SUMMARY | 2024-06-05 11:50 | XMS_ITS | Continuity of Care Document ---
Author Organization [facility] Address [address] [place] [address] [place] [address] Phone Care Team Providers Care Raker Buffing Wheel Name Role Phone Gulshan Pace DO Unavailable Unavailable Advance Directives Directive Yes / No Effective Date File Name No Information Encounters Encounter Description Practice Location Reason(s) For Visit Diagnoses Date Provider Providers Copied on Encounter [facility], [address] [place] [address] [address], [place], [place], [id number], [place] tel:[phone] [facility] No Information Katelynn Salazar. [address] [place], [address], [place]. tel: [phone] Family History Family Member Type Diagnosis Age [...]
--- OUTSIDE RECORDS SUMMARY | 2024-06-05 11:50 | XMS_ITS | Encounter Summary ---
Author Organization [facility] Address [address] 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
--- OUTSIDE RECORDS SUMMARY | 2024-06-05 11:50 | XMS_ITS | Clinical Summary ---
Author Organization [facility] Address [address] [place] [address] Phone Care Team Providers Care Pearl Restorer Name Role Phone Roxann Albarran Kristal Primary Care Provider [phone] Allergies Active Allergy Reactions Criticality Noted Date Comments Acyclovir Nausea only Low 09/27/2017 GI distress Wheat Headache Low 12/17/2022 Upset stomach Medications vit X-sehnhvasln-f ioflavonoids 500-100-100 mg tabletIndicati ons:supplement Take 1 [...] 11/26/2019 Assessment & Plan (05/05/2024 10:43 AM TELLER MANAGER): 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 Browning as planned Assessment & [...] 04/28/2018 Assessment & Plan (06/04/2023 10:01 AM TELLER MANAGER): Keep PF daily OD Assessment & Plan (07/31/2022 11:28 AM CDT): Stable Cont PF OD qd F/u me prn Assessment & Plan (07/31/2021 12:11 PM CDT): Clear graft PF OD qd RTC me 1 yr Assessment & Plan (08/19/2020 2:37 PM CDT): Continue PF once daily OD Assessment & Plan (06/21/2020 10:31 AM TELLER MANAGER): Clear graft PF OD qd RTC me 1 yr Assessment & Plan (11/26/2019 5:00 PM CDT): H/o DSEK OD, clear graft stable Assessment & Plan (06/15/2019 12:23 PM TELLER MANAGER): Graft clear, pt has some subjective vision changes HVF today with mild nonspecific changes Repeat HVF in 1 year Pred Forte OD q.day Assessment & Plan (06/14/2018 2:40 PM TELLER MANAGER): Stable Pred Forte OD q.day Sensory hearing [...] prn Assessment & Plan (06/08/2022 4:25 PM TELLER MANAGER): Follows with Dr. Fabian Assessment & Plan [...] time. Assessment & Plan (06/21/2020 10:28 AM TELLER MANAGER): No change from previous photoo Keep appt [...] time. Assessment & Plan (06/15/2019 1:20 PM TELLER MANAGER): Images from the original note were not [...] way. Assessment & Plan (06/14/2018 2:41 PM TELLER MANAGER): Stable today, recommend observation. Return in 1 year Assessment & Plan (05/19/2018 12:12 PM TELLER MANAGER): Stable today, recommend observation. 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 RTC 9-12 months. Pseudophakia, both eyes 10/05/2017 Assessment & Plan (12/07/2022 2:31 PM CDT): Stable OU Assessment & Plan (06/08/2022 4:25 PM TELLER MANAGER): Stable both eyes Assessment & Plan (11/26/2019 5:01 PM CDT): Stable OU, s/p YAG OD Assessment & Plan (01/18/2019 10:03 AM CDT): Stable today, recommend observation. Assessment & Plan (04/28/2018 11:49 AM TELLER MANAGER): stable Basal cell carcinoma (BCC) of upper lip 06/02/19 18 Squamous cell carcinoma in situ (SCCIS) of skin 06/02/2017 Lentigo 10/26/2016 Actinic keratosis 08/28/2014 Benign neoplasm of soft tissues 08/28/2014 Sensorineural hearing loss (SNHL) of both ears 1 05/27/2013 Encounters Date Type Department Care Team Description 05/05/2024 10:00 AM TELLER MANAGER Office Visit [facility] [place] [address] Selina Browning MD Primary open angle glaucoma (POAG) of right eye, severe stage (Primary Dx) 05/05/2024 9:50 AM TELLER MANAGER Imaging Exam [facility] [address] [place] [phone] Primary open angle glaucoma (POAG) of right eye, severe stage 05/05/2024 9:30 AM TELLER MANAGER Imaging Exam [facility] [address] [place] [phone] Primary open angle glaucoma (POAG) of right eye, severe stage 05/04/2024 Orders Only [facility] [address] [place] [phone] Selina Browning MD Primary open angle glaucoma (POAG) of right eye, severe stage (Primary Dx) 03/28/2024 2:45 PM TELLER MANAGER Office Visit [facility] [address] [place] [address] [address] [place] [phone] Terrell Izaguirre PA Actinic keratosis (Primary Dx); Seborrheic keratosis; Abrasion; History of nonmelanoma skin cancer from Last 3 Months Immunizations Immunization Administration Dates Next Due RhinoCyte (J&J) SARS-CoV-2 Vaccination 11/01/2020 Surgical History Surgery Date Site/Laterality Comments [place] KERATOPLASTY ENDOTHELIAL Right Cornea Transplant Endothelial - (Added by TW Conv) CATARACT EXTRACTION Right Cataract Surgery - (Added by TW Conv) [place] KERATOPLASTY ANTERIOR LAMELLAR Right Cornea Transplant - [...] Blood transfusion declined b ecause patient is Mormonism Family History Medical History Relation Name Comments [...] on file Legal Sex Female 6:45 PM TELLER MANAGER Gender Identity Not on file Sexual Orientation [...] Health Maintenance Due Date Last Done Comments DTaP/Tdap/Td Vaccine (1 - Tdap) 12/19/1946 Hepatitis B Screening 12/19/1953 Pneumococcal vaccine 65+ (1 of 2 - PCV) 12/19/1954 Zoster Vaccine (1 of 2) 12/19/1985 Depression Screening 07/08/2023 07/07/2022, 07/08/19 23 Well Visit 65+ 07/08/2023 07/07/2022, 06/17, 05/14/2020 Covid-19 Vaccine (3 - season) 2023, 11/01/2020 Influenza Vaccine (#1) 2023 Fall Risk Assessment 06/09/2024 06/09/2023, 07/08/19 23 Medical Devices Implanted Type Area Compensation And Benefits Advisor Device Identifier Shelf Expiration Date Model / Serial / Lot Bocandy Tutoplast Iopatch 1x.6cm Dehydrate Processed Allograft Graft Soft 05384 - [id number] - [id number] Implanted:Qty : 1 on 12/24/2022 by Selina Browning MD at [facility] Other - see comments [employer] [id number] 06/17/2027 [id number] / [id number] / [id number] [employer] Implant Molteno Gen 3-185 Ss-185 - [id number] - [id number] Implanted:Qty : 1 on 12/24/2022 by Selina Browning MD at [facility] Tube Right: Eye [employer] [id number] 01/13/2027 SS-185 / [id number] / [id number] Procedures Procedure Name Priority Date/Time Associated Diagnosis Comments SANCHEZ VISUAL FIELD - OU - BOTH EYES Routine 05/05/2024 10:01 AM TELLER MANAGER Primary open angle glaucoma (POAG) of right eye, severe stage OCT, OPTIC NERVE - OU - BOTH EYES Routine 05/05/2024 10:01 AM TELLER MANAGER Primary open angle glaucoma (POAG) of right eye, severe stage from Last 3 Months Results * Sanchez Visual Field - OU - Both Eyes (05/05/2024 10:01 AM TELLER MANAGER) Pattern Deviation OS 3.14 dB CONTINUUM Pattern Deviation OD 7.09 dB CONTINUUM Mean Deviation OS -3.54 dB CONTINUUM Mean Deviation OD -25.19 dB CONTINUUM Anatomical Region Laterality Modality Head Other Narrative 05/05/2024 10:46 AM TELLER MANAGER Right Eye Fixation was good. Cooperation was [...] OU - Both Eyes (05/05/2024 10:01 AM TELLER MANAGER) RNFL OS 85 micrometers CONTINUUM RNFL OD 73 micrometers CONTINUUM Anatomical Region Laterality Modality Head Other Narrative 05/05/2024 10:46 AM TELLER MANAGER Right Eye Reliability was good. Temporal thickness [...] Last 3 Months Insurance [employer] MEDICARE MEDICARE [facility] MEDICARE SOLUTIONS [facility] MEDICARE [facility] MEDICARE Advance Directives For more information, please contact: [phone] Documents on File Type Date Recorded Patient Puller Through Expl anation ADVANCE DIRECTIVE 12/24/2022 9:19 AM Power of Facilities Specialist-Medical * Full Code (Latest Code Status on File) Date Activated Date Inactivated Comments 06/09/2023 9:53 AM 06/09/2023 5:15 PM * Full Code Date Activated Date Inactivated Comments 05/17/2018 11:10 AM 05/17/2018 4:31 PM Care Teams Pearl Restorer Relationship Specialty Start Date End Date Roxann Albarran DO PCP - General Family Medicine 12/07/22
--- OUTSIDE RECORDS SUMMARY | 2024-06-05 11:50 | XMS_ITS | Referral Summary ---
Author Organization [facility] Address [address] [place] [address] Phone Care Team Providers Care Staff Interpreter Name Role Phone Roxann Albarran DO Primary Care Provider [phone] Encounters Date Type Department Care Team Description 05/05/2024 10:00 AM TOBACCO SIEVE OPERATOR Office Visit [facility] [address] [place] [phone] Selina Browning MD Primary open angle glaucoma (POAG) of right eye, severe stage (Primary Dx) 05/05/2024 9:50 AM TOBACCO SIEVE OPERATOR Imaging Exam [facility] [address] [place] [phone] Primary open angle glaucoma (POAG) of right eye, severe stage 05/05/2024 9:30 AM TOBACCO SIEVE OPERATOR Imaging Exam [facility] [address] [place] [phone] Primary open angle glaucoma (POAG) of right eye, severe stage 05/04/2024 Orders Only [facility] [address] [place] [address] [phone] Selina Browning MD Primary open angle glaucoma (POAG) of right eye, severe stage (Primary Dx) 03/28/2024 2:45 PM TOBACCO SIEVE OPERATOR Office Visit [facility] [address] [place] [address] [address] [place] [phone] Terrell Izaguirre PA Actinic keratosis (Primary Dx); Seborrheic keratosis; Abrasion; History of nonmelanoma skin cancer from Last 3 Months Allergies Active Allergy Reactions Criticality Noted Date Comments Acyclovir Nausea only Low 09/27/2017 GI distress Wheat Headache Low 12/17/2022 Upset stomach Medications vit E-cbfvslrxyy-u ioflavonoids 500-100-100 mg tabletIndicati ons:supplement Take 1 [...] 11/26/2019 Assessment & Plan (05/05/2024 10:43 AM TOBACCO SIEVE OPERATOR): S/p Molteno OD 12/2022 HVF with possible [...] (HVF)/RNFL Assessment & Plan (06/04/2023 10:00 AM TOBACCO SIEVE OPERATOR): IOP s/p Molteno OD doing well Wants to try off cosopt Trial off cosopt IOP check in 2 months Assessment & Plan (02/22/2023 10:23 AM TOBACCO SIEVE OPERATOR): POM#2 s/p Molteno OD - IOP improved, [...] planned Assessment & Plan (06/08/2022 4:26 PM TOBACCO SIEVE OPERATOR): OD with progression on HVF today IOP [...] concerns Assessment & Plan (06/21/2020 10:30 AM TOBACCO SIEVE OPERATOR): F/u Dr. Browning as planned Assessment & [...] 04/28/2018 Assessment & Plan (06/04/2023 10:01 AM TOBACCO SIEVE OPERATOR): Keep PF daily OD Assessment & Plan (07/31/2022 11:28 AM CDT): Stable Cont PF OD qd F/u me prn Assessment & Plan (07/31/2021 12:11 PM CDT): Clear graft PF OD qd RTC me 1 yr Assessment & Plan (08/19/2020 2:37 PM CDT): Continue PF once daily OD Assessment & Plan (06/21/2020 10:31 AM TOBACCO SIEVE OPERATOR): Clear graft PF OD qd RTC me 1 yr Assessment & Plan (11/26/2019 5:00 PM CDT): H/o DSEK OD, clear graft stable Assessment & Plan (06/15/2019 12:23 PM TOBACCO SIEVE OPERATOR): Graft clear, pt has some subjective vision changes HVF today with mild nonspecific changes Repeat HVF in 1 year Pred Forte OD q.day Assessment & Plan (06/14/2018 2:40 PM TOBACCO SIEVE OPERATOR): Stable Pred Forte OD q.day Sensory hearing [...] prn Assessment & Plan (06/08/2022 4:25 PM TOBACCO SIEVE OPERATOR): Follows with Dr. Fabian Assessment & Plan (12/01/2021 2:14 PM CDT): Follows with Dr. Fabian for serial exams Assessment & Plan (10/30/2021 2:39 PM CDT): Remains stable, recommend observation. Assessment & Plan (08/25/2021 2:49 PM CDT): Follows with Dr. Fabian and has remained stable compared with prior photos Assessment & Plan (07/31/2021 12:12 PM CDT): Follows with Dr. Fabain and has remained stable compared to prior [...] time. Assessment & Plan (06/21/2020 10:28 AM TOBACCO SIEVE OPERATOR): No change from previous photoo Keep appt [...] time. Assessment & Plan (06/15/2019 1:20 PM TOBACCO SIEVE OPERATOR): Images from the original note were not [...] way. Assessment & Plan (06/14/2018 2:41 PM TOBACCO SIEVE OPERATOR): Stable today, recommend observation. Return in 1 year Assessment & Plan (05/19/2018 12:12 PM TOBACCO SIEVE OPERATOR): Stable today, recommend observation. 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 RTC 9-12 months. Pseudophakia, both eyes 10/05/2017 Assessment & Plan (12/07/2022 2:31 PM CDT): Stable OU Assessment & Plan (06/08/2022 4:25 PM TOBACCO SIEVE OPERATOR): Stable both eyes Assessment & Plan (11/26/2019 5:01 PM CDT): Stable OU, s/p YAG OD Assessment & Plan (01/18/2019 10:03 AM CDT): Stable today, recommend observation. Assessment & Plan (04/28/2018 11:49 AM TOBACCO SIEVE OPERATOR): stable Basal cell carcinoma (BCC) of upper lip 06/02/19 18 Squamous cell carcinoma in situ (SCCIS) of skin 06/02/2017 Lentigo 10/26/2016 Actinic keratosis 08/28/2014 Benign neoplasm of soft tissues 08/28/2014 Sensorineural hearing loss (SNHL) of both ears 1 05/27/2013 Immunizations Immunization Administration Dates Next Due [employer] ([employer]) SARS-CoV-2 Vaccination 11/01/2020 Social History Tobacco [...] on file Legal Sex Female 6:45 PM TOBACCO SIEVE OPERATOR Gender Identity Not on file Sexual Orientation [...] on file Medical Devices Implanted Type Area Senior Linux Administrator Device Identifier Shelf Expiration Date Model / Serial / Lot Owingo Tutoplast Iopatch 1x.6cm Dehydrate Processed Allograft Graft Soft [id number] - [id number] - [id number] Implanted:Qty : 1 on 12/24/2022 by Selina Browning MD at [facility] Other - see comments [employer] [id number] 06/17/2027 [id number] / [id number] / [id number] [employer] Implant Molteno Gen 3-185 Ss-185 - S815 - [id number] Implanted:Qty : 1 on 12/24/2022 by Selina Browning MD at [facility] Tube Right: Eye [employer] [id number] 01/13/2027 SS-185 / 815 / [id number] Procedures Procedure Name Priority Date/Time Associated Diagnosis Comments SANCHEZ VISUAL FIELD - OU - BOTH EYES Routine 05/05/2024 10:01 AM TOBACCO SIEVE OPERATOR Primary open angle glaucoma (POAG) of right eye, severe stage OCT, OPTIC NERVE - OU - BOTH EYES Routine 05/05/2024 10:01 AM TOBACCO SIEVE OPERATOR Primary open angle glaucoma (POAG) of right eye, severe stage from Last 3 Months Results * Sanchez Visual Field - OU - Both Eyes (05/05/2024 10:01 AM TOBACCO SIEVE OPERATOR) Pattern Deviation OS 3.14 dB CONTINUUM Pattern Deviation OD 7.09 dB CONTINUUM Mean Deviation OS -3.54 dB CONTINUUM Mean Deviation OD -25.19 dB CONTINUUM Anatomical Region Laterality Modality Head Other Narrative 05/05/2024 10:46 AM TOBACCO SIEVE OPERATOR Right Eye Fixation was good. Cooperation was [...] OU - Both Eyes (05/05/2024 10:01 AM TOBACCO SIEVE OPERATOR) RNFL OS 85 micrometers CONTINUUM RNFL OD 73 micrometers CONTINUUM Anatomical Region Laterality Modality Head Other Narrative 05/05/2024 10:46 AM TOBACCO SIEVE OPERATOR Right Eye Reliability was good. Temporal thickness [...] Last 3 Months Insurance [employer] MEDICARE MEDICARE [facility] Address: [address] [address] [place] [address] [facility] MEDICARE SOLUTIONS [facility] MEDICARE [facility] MEDICARE Advance Directives For more information, please contact: [phone] Documents on File Type Date Recorded Patient Bank President Expl anation ADVANCE DIRECTIVE 12/24/2022 9:19 AM Power of Blocker [employer] * Full Code (Latest Code Status on File) Date Activated Date Inactivated Comments 06/09/2023 9:53 AM 06/09/2023 5:15 PM * Full Code Date Activated Date Inactivated Comments 05/17/2018 11:10 AM 05/17/2018 4:31 PM Care Teams Staff Interpreter Relationship Specialty Start Date End Date Roxann Albarran DO PCP - General Family Medicine 12/07/22
--- OUTSIDE RECORDS SUMMARY | 2024-06-05 11:50 | XMS_ITS ---
Author Organization [facility] Address [address] [place] [address] Phone Care Team Providers Care Material Planner Name Role Phone Roxann Albarran DO Primary Care Provider [phone] Active Problems Problem Noted Date Diagnosed Date [...] 11/26/2019 Assessment & Plan (05/05/2024 10:43 AM METAL FLOORING INSTALLER): S/p Molteno OD 12/2022 HVF with possible [...] (HVF)/RNFL Assessment & Plan (06/04/2023 10:00 AM METAL FLOORING INSTALLER): IOP s/p Molteno OD doing well Wants to try off cosopt Trial off cosopt IOP check in 2 months Assessment & Plan (02/22/2023 10:23 AM METAL FLOORING INSTALLER): POM#2 s/p Molteno OD - IOP improved, [...] planned Assessment & Plan (06/08/2022 4:26 PM METAL FLOORING INSTALLER): OD with progression on HVF today IOP [...] concerns Assessment & Plan (06/21/2020 10:30 AM METAL FLOORING INSTALLER): F/u Dr. Browning as planned Assessment & [...] 04/28/2018 Assessment & Plan (06/04/2023 10:01 AM METAL FLOORING INSTALLER): Keep PF daily OD Assessment & Plan (07/31/2022 11:28 AM CDT): Stable Cont PF OD qd F/u me prn Assessment & Plan (07/31/2021 12:11 PM CDT): Clear graft PF OD qd RTC me 1 yr Assessment & Plan (08/19/2020 2:37 PM CDT): Continue PF once daily OD Assessment & Plan (06/21/2020 10:31 AM METAL FLOORING INSTALLER): Clear graft PF OD qd RTC me 1 yr Assessment & Plan (11/26/2019 5:00 PM CDT): H/o DSEK OD, clear graft stable Assessment & Plan (06/15/2019 12:23 PM METAL FLOORING INSTALLER): Graft clear, pt has some subjective vision changes HVF today with mild nonspecific changes Repeat HVF in 1 year Pred Forte OD q.day Assessment & Plan (06/14/2018 2:40 PM METAL FLOORING INSTALLER): Stable Pred Forte OD q.day Sensory hearing [...] prn Assessment & Plan (06/08/2022 4:25 PM METAL FLOORING INSTALLER): Follows with Dr. Fabian Assessment & Plan [...] time. Assessment & Plan (06/21/2020 10:28 AM METAL FLOORING INSTALLER): No change from previous photoo Keep appt [...] time. Assessment & Plan (06/15/2019 1:20 PM METAL FLOORING INSTALLER): Images from the original note were not [...] way. Assessment & Plan (06/14/2018 2:41 PM METAL FLOORING INSTALLER): Stable today, recommend observation. Return in 1 year Assessment & Plan (05/19/2018 12:12 PM METAL FLOORING INSTALLER): Stable today, recommend observation. 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 RTC 9-12 months. Pseudophakia, both eyes 10/05/2017 Assessment & Plan (12/07/2022 2:31 PM CDT): Stable OU Assessment & Plan (06/08/2022 4:25 PM METAL FLOORING INSTALLER): Stable both eyes Assessment & Plan (11/26/2019 5:01 PM CDT): Stable OU, s/p YAG OD Assessment & Plan (01/18/2019 10:03 AM CDT): Stable today, recommend observation. Assessment & Plan (04/28/2018 11:49 AM METAL FLOORING INSTALLER): stable Basal cell carcinoma (BCC) of upper lip 06/02/19 18 Squamous cell carcinoma in situ (SCCIS) of skin 06/02/2017 Lentigo 10/26/2016 Actinic keratosis 08/28/2014 Benign neoplasm of soft tissues 08/28/2014 Sensorineural hearing loss (SNHL) of both ears 1 05/27/2013 Current Treatment and Therapy Plans No current plan information found. Past Treatment and Therapy Plans No past plan information found. Lifetime Dose Tracking * Chemical Lifetime Dose Automatic Entry Manual Entr y Air kerma at the reference point (Ka,r) 111 mGy 0 mGy 111 mGy DLP 1,066 mGycm 1,066 mGycm 0 mGycm
--- OUTSIDE RECORDS SUMMARY | 2024-06-05 11:52 | XMS_ITS | Clinical Summary ---
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
--- OUTSIDE RECORDS SUMMARY | 2024-06-05 11:52 | XMS_ITS | Encounter Summary ---
Author Organization [facility] Address [address] [place] [address] Care Team Providers Care Acidizer Name Role Phone Cedrick Burnett MD Primary Care Provider Encounter Details Date Type Department Care Team (Late st Contact Info) Description 02/21/2001 Outpatient Historical [address] [phone] Joanie Crooks MD NO ADDRESS ON FILE Social History Tobacco Use Types Packs/Day Years Used Date Smoking Tobacco: Never Assessed Comments Unknown Sex and Gender Information Value Date Recorded Sex Assigned at Not on file Legal Sex Female 3:06 AM SOCIAL GROUP WORKER Gender Identity Not on file Sexual Orientation Not on file documented as of this encounter Plan of Treatment Not on file documented as of this encounter Visit Diagnoses Not on filedocumented in this encounter Care Teams Acidizer Relationship Specialty Start Date End Date Cedrick Burnett MD [address] [facility] [address] [place] [address] PCP - General Internal Medicine 11/14/13 documented as of this encounter
--- OUTSIDE RECORDS SUMMARY | 2024-06-05 11:52 | XMS_ITS | Encounter Summary ---
Author Organization [facility] Address [address] [place] [address] Care Team Providers Care Endodontic Assistant Name Role Phone Cedrick Burnett MD Primary Care Provider Encounter Details Date Type Department Care Team (Late st Contact Info) Description 02/17/1999 Outpatient Historical [address] [phone] Joanie Crooks MD NO ADDRESS ON FILE Social History Tobacco Use Types Packs/Day Years Used Date Smoking Tobacco: Never Assessed Comments Unknown Sex and Gender Information Value Date Recorded Sex Assigned at Not on file Legal Sex Female 3:06 AM EMBOSSER OPERATOR Gender Identity Not on file Sexual Orientation Not on file documented as of this encounter Plan of Treatment Not on file documented as of this encounter Visit Diagnoses Not on filedocumented in this encounter Care Teams Endodontic Assistant Relationship Specialty Start Date End Date Cedrick Burnett MD [address] [facility] [address] [place] [address] PCP - General Internal Medicine 11/14/13 documented as of this encounter
--- OUTSIDE RECORDS SUMMARY | 2024-06-05 11:52 | XMS_ITS | Encounter Summary ---
Author Organization [facility] Address [address] [place] [address] Care Team Providers Care Comic Book Designer Name Role Phone Cedrick Burnett MD Primary Care Provider Encounter Details Date Type Department Care Team (Late st Contact Info) Description 01/28/1998 Outpatient Historical [address] [phone] Joanie Crooks MD NO ADDRESS ON FILE Social History Tobacco Use Types Packs/Day Years Used Date Smoking Tobacco: Never Assessed Comments Unknown Sex and Gender Information Value Date Recorded Sex Assigned at Not on file Legal Sex Female 3:06 AM MOBILE LOUNGE DRIVER Gender Identity Not on file Sexual Orientation Not on file documented as of this encounter Plan of Treatment Not on file documented as of this encounter Visit Diagnoses Not on filedocumented in this encounter Care Teams Comic Book Designer Relationship Specialty Start Date End Date Cedrick Burnett MD [address] [facility] [address] [place] [address] PCP - General Internal Medicine 11/14/13 documented as of this encounter
--- OUTSIDE RECORDS SUMMARY | 2024-06-05 11:52 | XMS_ITS | Encounter Summary ---
Author Organization [facility] Address [address] [place] [address] Care Team Providers Care Communications Consultant Name Role Phone Cedrick Burnett MD Primary Care Provider Encounter Details Date Type Department Care Team (Late st Contact Info) Description 03/01/2000 Outpatient Historical [address] [phone] Joanie Crooks MD NO ADDRESS ON FILE Social History Tobacco Use Types Packs/Day Years Used Date Smoking Tobacco: Never Assessed Comments Unknown Sex and Gender Information Value Date Recorded Sex Assigned at Not on file Legal Sex Female 3:06 AM HEALTH SERVICE WORKER Gender Identity Not on file Sexual Orientation Not on file documented as of this encounter Plan of Treatment Not on file documented as of this encounter Visit Diagnoses Not on filedocumented in this encounter Care Teams Communications Consultant Relationship Specialty Start Date End Date Cedrick Burnett MD [address] [facility] [address] [place] [address] PCP - General Internal Medicine 11/14/13 documented as of this encounter
--- OUTSIDE RECORDS SUMMARY | 2024-06-05 11:52 | XMS_ITS | Encounter Summary ---
Author Organization [facility] Address [address] [place]ce: Epic Prelude ADT [place] [address] Care Team Providers Care Support Services Coordinator Name Role Phone Cedrick Burnett MD Primary Care Provider [phone] Encounter Details Date Type Department Care Team (Late st Contact Info) Description 10/14/1993 Outpatient Historical Joanie Crooks MD NO ADDRESS ON FILE Social History Tobacco Use Types Packs/Day Years Used Date Smoking Tobacco: Never Assessed Comments Unknown Sex and Gender Information Value Date Recorded Sex Assigned at Not on file Legal Sex Female 3:06 AM ELEVATOR WORKER Gender Identity Not on file Sexual Orientation Not on file documented as of this encounter Plan of Treatment Not on file documented as of this encounter Visit Diagnoses Not on filedocumented in this encounter Care Teams Support Services Coordinator Relationship Specialty Start Date End Date Cedrick Burnett MD [address] [facility] [address] [place] [address] PCP - General Internal Medicine 11/14/13 documented as of this encounter
--- OUTSIDE RECORDS SUMMARY | 2024-06-05 11:52 | XMS_ITS | Encounter Summary ---
Author Organization [facility] Address [address] [place] [address] Care Team Providers Care Audit Practice Intern Name Role Phone Cedrick Burnett MD Primary Care Provider Encounter Details Date Type Department Care Team (Late st Contact Info) Description 01/28/1998 Outpatient Historical [address] [phone] Joanie Crooks MD NO ADDRESS ON FILE Social History Tobacco Use Types Packs/Day Years Used Date Smoking Tobacco: Never Assessed Comments Unknown Sex and Gender Information Value Date Recorded Sex Assigned at Not on file Legal Sex Female 3:06 AM FACILITY ENGINEER Gender Identity Not on file Sexual Orientation Not on file documented as of this encounter Plan of Treatment Not on file documented as of this encounter Visit Diagnoses Not on filedocumented in this encounter Care Teams Audit Practice Intern Relationship Specialty Start Date End Date Cedrick Burnett MD [address] [facility] [address] [place] [address] PCP - General Internal Medicine 11/14/13 documented as of this encounter
--- OUTSIDE RECORDS SUMMARY | 2024-06-05 11:52 | XMS_ITS | Encounter Summary ---
Author Organization [facility] Address [address] [place] [address] Care Team Providers Care Drawing Box Tender Name Role Phone Cedrick Burnett MD Primary Care Provider Encounter Details Date Type Department Care Team (Late st Contact Info) Description 02/27/2002 Outpatient Historical [address] [phone] Joanie Crooks MD NO ADDRESS ON FILE Social History Tobacco Use Types Packs/Day Years Used Date Smoking Tobacco: Never Assessed Comments Unknown Sex and Gender Information Value Date Recorded Sex Assigned at Not on file Legal Sex Female 3:06 AM MOLECULAR BIOLOGIST Gender Identity Not on file Sexual Orientation Not on file documented as of this encounter Plan of Treatment Not on file documented as of this encounter Visit Diagnoses Not on filedocumented in this encounter Care Teams Drawing Box Tender Relationship Specialty Start Date End Date Cedrick Burnett MD [address] [facility] [address] [place] [address] PCP - General Internal Medicine 11/14/13 documented as of this encounter
--- OUTSIDE RECORDS SUMMARY | 2024-06-05 11:52 | XMS_ITS | Encounter Summary ---
Author Organization [facility] Address [address] [place]: Epic Prelude ADT [place] [address] Care Team Providers Care Circuits Engineer Name Role Phone Cedrick Burnett MD Primary Care Provider [phone] Encounter Details Date Type Department Care Team (Late st Contact Info) Description 10/10/1992 Outpatient Historical Joanie Crooks MD NO ADDRESS ON FILE Social History Tobacco Use Types Packs/Day Years Used Date Smoking Tobacco: Never Assessed Comments Unknown Sex and Gender Information Value Date Recorded Sex Assigned at Not on file Legal Sex Female 3:06 AM TRANSCRIBER Gender Identity Not on file Sexual Orientation Not on file documented as of this encounter Plan of Treatment Not on file documented as of this encounter Visit Diagnoses Not on filedocumented in this encounter Care Teams Circuits Engineer Relationship Specialty Start Date End Date Cedrick Burnett MD [address] [facility] [address] [place] [address] PCP - General Internal Medicine 11/14/13 documented as of this encounter
--- OUTSIDE RECORDS SUMMARY | 2024-06-05 11:52 | XMS_ITS | Encounter Summary ---
Author Organization [facility] Address [address] [facility] [address] [place]: Epic Prelude ADT [place] [address] Care Team Providers Care Warehouse Loader Name Role Phone Cedrick Burnett MD Primary Care Provider [phone] Encounter Details Date Type Department Care Team (Late st Contact Info) Description 06/29/1991 Outpatient Historical Joanie Crooks MD NO ADDRESS ON FILE Social History Tobacco Use Types Packs/Day Years Used Date Smoking Tobacco: Never Assessed Comments Unknown Sex and Gender Information Value Date Recorded Sex Assigned at Not on file Legal Sex Female 3:06 AM CARRY ALL DRIVER Gender Identity Not on file Sexual Orientation Not on file documented as of this encounter Plan of Treatment Not on file documented as of this encounter Visit Diagnoses Not on filedocumented in this encounter Care Teams Warehouse Loader Relationship Specialty Start Date End Date Cedrick Burnett MD [address] [facility] [address] [place] [address] PCP - General Internal Medicine 11/14/13 documented as of this encounter
[2024-06-05 15:06] LABS: Alanine Aminotransferase 13 U/L (6-35); Albumin Level 3.2 g/dL (3.5-5.1); Alkaline Phosphatase 108 U/L (38-126); Anion Gap 6 mmol/L (4-12); Aspartate Amino Transferase 38 U/L (14-36); Bilirubin,Total 0.4 mg/dL (0.2-1.3); Blood Urea Nitrogen 20 mg/dL (7-17); Calcium 8.3 mg/dL (8.4-10.2); Carbon Dioxide 31 mmol/L (22-30); Chloride 98 mmol/L (98-107); Cholesterol 126 mg/dL (0-200); Estimated Glomerular Filt Rate > 60; Glucose 76 mg/dL (65-110); HDL Direct 39 mg/dL; Potassium 3.8 mmol/L (3.4-5.0); Sodium 135 mmol/L (137-145); Triglycerides 91 mg/dL (<150)
[2024-06-05 15:17] LABS: LDL Cholesterol Direct 64 mg/dL
[2024-06-05 17:09] LABS: Free T4 Free Thyroxine 1.46 ng/dL (0.78-2.19)
== END 2024-06-05 09:09 | disposition home or self-care (01) ==
LOC: ANHGOSHLAB 09:10
PROVIDERS: PCP Family Medicine; Visit Provider Nurse Practitioner
DX: E07.9 Disorder of thyroid, unspecified (principal); I10 Essential (primary) hypertension
CPT/HCPCS: 36415; 80053; 80061; 84439; 84443

== ENCOUNTER 2024-07-05 14:57 | Outpatient (CLI) | payer MEDICARE, SELFPAY ==
--- NOTE | ~2024-07-05 | XR_ITS ---
CHEST RADIOGRAPH, PA AND LATERAL CLINICAL HISTORY: J18.9 - Pneumonia, unspecified organism . COMPARISON: 06/02/2014 TECHNIQUE: PA and lateral views of the chest. FINDINGS The cardiomediastinal silhouette is unremarkable. The lungs are clear. S shaped curvature of the thoracolumbar spine. IMPRESSION: No focal infiltrate or effusion. Reviewed, dictated and finalized at location A.
== END 2024-07-05 14:58 | disposition home or self-care (01) ==
LOC: GOSHIMG 14:57
PROVIDERS: PCP Family Medicine; Visit Provider Family Medicine
DX: J18.9 Pneumonia, unspecified organism (principal)
CPT/HCPCS: 71046

== ENCOUNTER 2024-09-07 14:11 | Outpatient (CLI) | payer SELFPAY ==
--- OUTSIDE RECORDS SUMMARY | 2024-09-07 14:15 | XMS_ITS | Encounter Summary ---
Author Organization [facility] Address [address] Boyce: Epic Prelude ADT [place] [address] Care Team Providers Care Home Appliance Washing Machine Mechanic Name Role Phone Cedrick Burnett MD Primary Care Provider [phone] Encounter Details Date Type Department Care Team (Late st Contact Info) Description 10/14/1993 Outpatient Historical Joanie Crooks MD NO ADDRESS ON FILE Social History Tobacco Use Types Packs/Day Years Used Date Smoking Tobacco: Never Assessed Comments Unknown Sex and Gender Information Value Date Recorded Sex Assigned at Not on file Legal Sex Female 3:06 AM IT SUPPORT TECHNICIAN Gender Identity Not on file Sexual Orientation Not on file documented as of this encounter Plan of Treatment Not on file documented as of this encounter Visit Diagnoses Not on filedocumented in this encounter Care Teams Home Appliance Washing Machine Mechanic Relationship Specialty Start Date End Date Cedrick Burnett MD [address] [facility] [address] [place] [address] PCP - General Internal Medicine 11/14/13 documented as of this encounter
--- OUTSIDE RECORDS SUMMARY | 2024-09-07 14:15 | XMS_ITS | Clinical Summary ---
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
--- OUTSIDE RECORDS SUMMARY | 2024-09-07 14:15 | XMS_ITS | Encounter Summary ---
Author Organization [facility] Address 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
--- OUTSIDE RECORDS SUMMARY | 2024-09-07 14:15 | XMS_ITS | Encounter Summary ---
Author Organization [facility] Address [address] 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
--- OUTSIDE RECORDS SUMMARY | 2024-09-07 14:15 | XMS_ITS | Encounter Summary ---
Author Organization [facility] Address 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
--- OUTSIDE RECORDS SUMMARY | 2024-09-07 14:15 | XMS_ITS | Encounter Summary ---
Author Organization [facility] Address 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
--- OUTSIDE RECORDS SUMMARY | 2024-09-07 14:15 | XMS_ITS | Encounter Summary ---
Author Organization [facility] Address 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
--- OUTSIDE RECORDS SUMMARY | 2024-09-07 14:15 | XMS_ITS | Encounter Summary ---
Author Organization [facility] Address 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
--- OUTSIDE RECORDS SUMMARY | 2024-09-07 14:15 | XMS_ITS | Encounter Summary ---
Author Organization [facility] Address [address] 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
--- OUTSIDE RECORDS SUMMARY | 2024-09-07 14:15 | XMS_ITS | Encounter Summary ---
Author Organization [facility] Address [address] [address] [facility] [address] 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
--- OUTSIDE RECORDS SUMMARY | 2024-09-07 14:15 | XMS_ITS | Encounter Summary ---
Author Organization [facility] Address 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
[2024-09-07 18:44] LABS: Hemoglobin 12.8 g/dL (12.0-15.0); Mean Corpuscular HGB Conc 31.2 g/dl (32-36); Mean Corpuscular Hemoglobin 30.3 pg (26-34); Mean Corpuscular Volume 96.9 fl (80-100); Mean Platelet Volume 11.7 fl (7.4-10.4); Platelet Count Result 157 k/mm3 (150-375); Red Blood Count 4.23 M/mm3 (4.2-5.4); Red Cell Distribution Width 12.9 % (11.5-14.5); White Blood Count 4.3 K/mm3 (4.5-10.0)
[2024-09-07 19:37] LABS: Alanine Aminotransferase 19 U/L (6-35); Alkaline Phosphatase 105 U/L (38-126); Anion Gap 6 mmol/L (4-12); Aspartate Amino Transferase 46 U/L (14-36); Bilirubin,Total 0.4 mg/dL (0.2-1.3); Blood Urea Nitrogen 22 mg/dL (7-17); Calcium 8.4 mg/dL (8.4-10.2); Carbon Dioxide 30 mmol/L (22-30); Chloride 102 mmol/L (98-107); Cholesterol 196 mg/dL (0-200); Estimated Glomerular Filt Rate > 60; Glucose 87 mg/dL (65-110); HDL Direct 82 mg/dL; Potassium 3.5 mmol/L (3.4-5.0); Sodium 138 mmol/L (137-145); Triglycerides 65 mg/dL (<150)
[2024-09-07 19:45] LABS: Free T4 Free Thyroxine 1.41 ng/dL (0.78-2.19)
[2024-09-07 19:48] LABS: LDL Cholesterol Direct 83 mg/dL
== END 2024-09-07 14:12 | disposition home or self-care (01) ==
LOC: ANHGOSHLAB 14:13
PROVIDERS: PCP Family Medicine; Visit Provider Family Medicine
DX: E07.9 Disorder of thyroid, unspecified (principal); R63.4 Abnormal weight loss; Z79.899 Other long term (current) drug therapy
CPT/HCPCS: 36415; 80053; 80061; 84439; 84443; 85027

== ENCOUNTER 2024-10-23 09:18 | Outpatient (RCR) | payer SELFPAY | END 2024-10-23 23:59 | disposition home or self-care (01) | LOC: ANHAUDIO 09:18 | PROVIDERS: PCP Family Medicine; Visit Provider Family Medicine | DX: Z46.1 Encounter for fitting and adjustment of hearing aid (principal) | CPT/HCPCS: V5014 ==

== ENCOUNTER 2025-01-29 11:32 | Outpatient (CLI) | payer MEDICARE, SELFPAY ==
--- NOTE | ~2025-01-29 | XR_ITS ---
EXAMINATION: XR chest 2V, 01/29/2025 12:03 CDT HISTORY: Chronic cough x 1 week, no inj, no surg COMPARISON: No comparisons available. Technique: 2 views obtained. Findings: COPD changes. Within the right upper lobe there is a pleural-based density measuring 2 x 2.5 cm incompletely evaluated. Small basilar infiltrates. No pneumothorax. Heart is normal size. Mediastinal and hilar contours are within normal limits. Dextroconvex scoliosis of the thoracic spine. Impression: Right lung nodule. CT chest with contrast recommended Reviewed, dictated and finalized at location P. Impression: Right lung nodule. CT chest with contrast recommended
== END 2025-01-29 11:33 | disposition home or self-care (01) ==
LOC: GOSHIMG 11:33
PROVIDERS: PCP Family Medicine; Visit Provider Family Medicine
DX: R05.3 Chronic cough (principal); R91.1 Solitary pulmonary nodule
CPT/HCPCS: 71046

== ENCOUNTER 2025-02-06 12:08 | Outpatient (CLI) | payer MEDICARE, SELFPAY ==
--- NOTE | ~2025-02-06 | CT_ITS ---
Exam: CT chest with contrast Clinical History: [Solitary pulmonary nodule. ] Comparison: [ Chest x-ray 1325] Technique: Multiple axial CT images of the chest with IV contrast. Sagittal and coronal reformatted images were obtained. FINDINGS: Lungs and pleura: [ There is a 3.0 x 2.6 x 3.6 cm heterogeneous mass in the right middle lobe about the right minor fissure. There is a] 6.9 x 3.0 x 5.7 cm heterogeneous mass in the right middle lobe abutting the minor fissure and pericardium and extends to the pleura. Biapical scarring. No pneumothorax. No pleural effusion. There are several reticular opacities in the lower lungs. There are several less than 9 mm pulmonary nodules in the lingula, bilateral lower lobes and right middle lobe. There are few small bandlike opacities in the right upper lobe likely atelectasis or scarring. Mediastinum and pulmonary eddie: [ No mass or adenopathy.] Axillary/intramammary and supraclavicular: [ No mass or adenopathy.] Heart and great vessels: [ Normal heart size.[ [ No pericardial effusion.] [ No aneurysm.] Mild atherosclerotic disease in the thoracic aorta. Chest Wall: [ Unremarkable.] Upper Abdomen: There is a too small to characterize low-attenuation lesion in the right lobe liver. There is a too small to characterize low-attenuation lesions in the left lobe of the liver. Osseous structures: [ No acute fracture lesion.] [ Multilevel degenerative change in the visualized spine.] Bones appear osteopenic. Additional findings: [ None of significance.] IMPRESSION: 1. There is a 3.0 x 2.6 x 3.6 cm heterogeneous mass in the right middle lobe about the right minor fissure. A malignant process needs to be excluded. A PET/CT and/or biopsy is recommended. 2. There is a] 6.9 x 3.0 x 5.7 cm heterogeneous mass in the right middle lobe abutting the minor fissure and pericardium and extends to the pleura. A malignant process needs to be excluded. A PET/CT and/or biopsy is recommended. 3. There are several less than 9 mm pulmonary nodules in the lingula, bilateral lower lobes and right middle lobe. A follow-up chest CT in 3 months is recommended. 4. There are too small to characterize low-attenuation lesions in the liver. Reviewed, dictated and finalized at location Q. IMPRESSION: 1. There is a 3.0 x 2.6 x 3.6 cm heterogeneous mass in the right middle lobe ab out the right minor fissure. A malignant process needs to be excluded. A PET/CT and/or biopsy is recommended. 2. There is a] 6.9 x 3.0 x 5.7 cm heterogeneous mass in the right middle lobe a butting the minor fissure and pericardium and extends to the pleura. A malignan t process needs to be excluded. A PET/CT and/or biopsy is recommended. 3. There are several less than 9 mm pulmonary nodules in the lingula, bilateral lower lobes and right middle lobe. A follow-up chest CT in 3 months is recomme nded. 4. There are too small to characterize low-attenuation lesions in the liver.
[2025-02-06 12:26] LABS: Estimated Glomerular Filt Rate > 60
== END 2025-02-06 12:09 | disposition home or self-care (01) ==
LOC: MICIMG 12:08
PROVIDERS: PCP Family Medicine; Visit Provider Family Medicine
DX: R91.8 Other nonspecific abnormal finding of lung field (principal)
CPT/HCPCS: 71260; Q9967

== ENCOUNTER 2025-02-19 10:59 | Outpatient (CLI) | payer MEDICARE, SELFPAY ==
--- OUTSIDE RECORDS SUMMARY | 2025-02-19 12:23 | XMS_ITS | Encounter Summary ---
Author Organization [facility] Address 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
--- OUTSIDE RECORDS SUMMARY | 2025-02-19 12:23 | XMS_ITS | Encounter Summary ---
Author Organization [facility] Address 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
--- OUTSIDE RECORDS SUMMARY | 2025-02-19 12:23 | XMS_ITS | Encounter Summary ---
Author Organization [facility] Address [address] 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
--- OUTSIDE RECORDS SUMMARY | 2025-02-19 12:23 | XMS_ITS | Clinical Summary ---
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 Gender Identity Not on file Sexual [...] 3:51 PM CDT Height 165.1 cm (5' 5) 12/12/2013 3:51 PM CDT Body Mass Index 18.97 12/12/2013 3:51 PM CDT Plan of Treatment Health Maintenance Due Date Last Done Comments DTAP/TDAP/TD VACCINES (1 - Tdap) 12/19/1954 PNEUMOCOCCAL VACCINE 50+ YEARS (1 of 1 - PCV) 12/19/18 86 ZOSTER VACCINE (1 of 2) 12/19/1985 OSTEOPOROSIS SCREENING 12/19/2000 RSV VACCINE (60+ or ) (1 - 1-dose 75+ series) 12/19/2010 INFLUENZA VACCINE (#1) 2024 Insurance MEDICARE PART A AND B [facility] Care Teams Combat Systems Operator Relationship Specialty Start Date End Date Cedrick Burnett MD [address] [address] PCP - General Internal Medicine 11/14/13
--- OUTSIDE RECORDS SUMMARY | 2025-02-19 12:23 | XMS_ITS | Encounter Summary ---
Author Organization [facility] Address 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
--- OUTSIDE RECORDS SUMMARY | 2025-02-19 12:24 | XMS_ITS | Encounter Summary ---
Author Organization [facility] Address 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
--- OUTSIDE RECORDS SUMMARY | 2025-02-19 12:24 | XMS_ITS | Encounter Summary ---
Author Organization [facility] Address [address] [facility] [address] 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
--- OUTSIDE RECORDS SUMMARY | 2025-02-19 12:24 | XMS_ITS | Encounter Summary ---
Author Organization [facility] Address [address] [facility] 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
--- OUTSIDE RECORDS SUMMARY | 2025-02-19 12:24 | XMS_ITS | Encounter Summary ---
Author Organization [facility] Address 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
--- OUTSIDE RECORDS SUMMARY | 2025-02-19 12:24 | XMS_ITS | Encounter Summary ---
Author Organization [facility] Address [address] [place] [address] Care Team Providers Care Percussion Teacher Name Role Phone Cedrick Burnett MD Primary Care Provider Encounter Details Date Type Department Care Team (Late st Contact Info) Description 01/28/1998 Outpatient Historical [address] [phone] Joanie Crooks MD NO ADDRESS ON FILE Social History Tobacco Use Types Packs/Day Years Used Date Smoking Tobacco: Never Assessed Comments Unknown Sex and Gender Information Value Date Recorded Sex Assigned at Not on file Legal Sex Female 3:06 AM DIRECTOR OF PATIENT SAFETY Gender Identity Not on file Sexual Orientation Not on file documented as of this encounter Plan of Treatment Not on file documented as of this encounter Visit Diagnoses Not on filedocumented in this encounter Care Teams Percussion Teacher Relationship Specialty Start Date End Date Cedrick Burnett MD [address] [facility] [address] [place] [address] PCP - General Internal Medicine 11/14/13 documented as of this encounter
--- OUTSIDE RECORDS SUMMARY | 2025-02-19 12:24 | XMS_ITS | Encounter Summary ---
Author Organization [facility] Address [address] [facility] [address] 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
[2025-02-19 13:12] LABS: Hematocrit 36.2 % (37.0-47.0); Hemoglobin 11.1 g/dL (12.0-15.0); Mean Corpuscular HGB Conc 30.7 g/dl (32-36); Mean Corpuscular Hemoglobin 29.4 pg (26-34); Mean Corpuscular Volume 95.8 fl (80-100); Platelet Count Result 341 k/mm3 (150-375); Red Blood Count 3.78 M/mm3 (4.2-5.4); White Blood Count 13.4 K/mm3 (4.5-10.0)
[2025-02-19 13:15] LABS: Alanine Aminotransferase 16 U/L (6-35); Albumin Level 3.3 g/dL (3.5-5.1); Alkaline Phosphatase 112 U/L (38-126); Anion Gap 6 mmol/L (4-12); Aspartate Amino Transferase 30 U/L (14-36); Bilirubin,Total 0.5 mg/dL (0.2-1.3); Blood Urea Nitrogen 23 mg/dL (7-17); Calcium 8.1 mg/dL (8.4-10.2); Carbon Dioxide 29 mmol/L (22-30); Chloride 100 mmol/L (98-107); Cholesterol 124 mg/dL (0-200); Estimated Glomerular Filt Rate > 60; Glucose 105 mg/dL (65-110); HDL Direct 33 mg/dL; Potassium 4.0 mmol/L (3.4-5.0); Sodium 135 mmol/L (137-145); Total Protein 7.1 g/dL (6.3-8.2); Triglycerides 84 mg/dL (<150)
[2025-02-19 13:28] LABS: Free T4 Free Thyroxine 1.65 ng/dL (0.78-2.19)
[2025-02-19 13:52] LABS: Thyroid Stimulating Hormone 2.810 uIU/mL (0.465-4.680)
== END 2025-02-19 11:00 | disposition home or self-care (01) ==
LOC: ANHGOSHLAB 11:00
PROVIDERS: PCP Family Medicine; Visit Provider Family Medicine
DX: E07.9 Disorder of thyroid, unspecified (principal); M81.0 Age-related osteoporosis without current pathological fracture; Z79.899 Other long term (current) drug therapy
CPT/HCPCS: 36415; 80053; 80061; 84439; 84443; 85027

== ENCOUNTER 2025-02-22 12:02 | Outpatient (CLI) | payer MEDICARE, SELFPAY ==
--- NOTE | ~2025-02-22 | PE_ITS ---
EXAMINATION: PET skull to mid thigh DATE: 02/22/2025 14:56 INDICATION: Right lobe mass TECHNIQUE: Blood glucose level was 74 mg/dL. 9.945 mCi of 18-fluorodeoxyglucose (18-FDG) was administered i.v. Low dose computed tomography (CT) images were acquired from the base of the brain to the proximal thighs for attenuation correction and anatomic localization. Positron emission tomography (PET) images were acquired in the same distribution beginning 52 minutes after injection. Images including fused PET/CT images were reconstructed in axial, coronal, and sagittal planes. Automated exposure control technique was employed. The dose- length product was 421.45mGy-cm. COMPARISON: Chest CT dated 02/06/2025 FINDINGS: Head/neck: There is symmetric increased activity in the oral cavity, palatine tonsils, laryngeal muscles and ocular muscles without CT correlate, likely physiologic. Minimal activity with maximal SUV of 2.6 associated with some mucosal thickening in the anterior right maxillary sinus which demonstrates thickened sclerotic tejada consistent with chronic sinusitis. No pathologically enlarged cervical lymphadenopathy or other suspicious foci of increased FDG uptake in the visualized head or neck. Chest: There is moderate increased FDG uptake with maximal SUV of 8.6 throughout the right middle lobe which remains collapsed. This includes an unchanged masslike region in the central right middle lobe with inferolateral bulging of the major fissure. There is heterogeneous decreased enhancement in this masslike region on prior CT which suggests some central necrosis/could be seen with infection and pulmonary abscess versus malignancy. This mass appears to obstruct the medial segmental bronchus of the right middle lobe. There is been significant interval increase in size of a previously 3.5 x 2.6 similar centimeters with low- attenuation masslike lesion along the lateral right major fissure which currentl y measures 4.9 x 3.9 cm. Given the significant increase in size over approximately 2 weeks along with the central fluid attenuation prior contrast imaging in the interval development of chronic reticulonodular lung disease in the immediately adjacent right upper and lower lobes and favor infection with large intrapulmonary abscess over either malignancy or loculated pleural effusion. There is a thickened peripheral FDG avid mediastinal with maximal SUV of 8.1. There has been interval decrease in size of additional prior small region of consolidation at the posterior basilar segment of the right lower lobe. Again seen are multiple, the largest anteroinferiorly measuring 11 x 7 mm with mild to moderate increased FDG uptake with maximal SUV of 6.1. No pleural effusion. Heart size is normal. Small amount of atherosclerotic coronary artery calcification. Small to moderate-sized pericardial effusion. Thoracic aorta is normal in caliber. There is increased FDG uptake at the right hilum with maximal SUV of 7.6 and at the subcarinal region of the mediastinum with maximal SUV of 3.0 with there is mild lymphadenopathy, better appreciated on the prior postcontrast study. Abdomen/pelvis/proximal thighs: Physiologic renal accumulation and excretion of FDG activity in the kidneys, bladder and along portions of ureters. 2 mm nonobstructing stone in upper pole calyx of the right kidney. Normal degree and heterogenous pattern of increased uptake throughout the liver without radiologic correlate or dominant FDG avid lesion. Again seen are couple low-attenuation hepatic lesions most likely cysts or hemangiomas which are indistinguishable on the PET imaging. The gallbladder, pancreas, spleen and bilateral adrenal glands are normal. Mild uptake scattered throughout the bowels without radiologic correlate, also likely physiologic. The uterus is not identified and has likely been surgically resected. Pelvic floor relaxation. Small amount of ascites. No other abnormal foci of increased FDG uptake or pathologically enlarged lymphadenopathy in the abdomen, pelvis or proximal thighs. Diffuse body wall edema. Musculoskeletal: Moderate S-shaped scoliosis with lumbar levoscoliosis and compensatory thoracic dextroscoliosis. No suspicious lytic, blastic or abnormally FDG avid bone lesions. IMPRESSION: 1. Increased FDG uptake associated with consolidation throughout the right middle lobe with suggestion of a likely partially cystic perihilar mass at the central right middle lobe and associated with a relatively rapidly enlarging complex cystic mass situated along the lateral right major fissure.. Dif ferential would include cavitary pneumonia is centrally necrotic malignancy. Given the progression of the lesion along the major fissure would favor the former. Correlate clinically and could consider bronchoscopy for evaluation of the perihilar right middle lobe mass which appears to occlude the medial segmental bronchus. 2. Multiple pulmonary nodules in the lingula largest measuring 11 x 7 mm also with increased FDG uptake and would also favor an infectious over malignant etiology. Would consider 3 month follow-up chest CT following appropriate course of treatment for pneumonia. 3. Mild FDG avid right hilar and mediastinal lymphadenopathy which could be reactive or metastatic. 4. Diffuse body wall edema and small amount of ascites in the abdomen and pelvis. Reviewed, dictated and finalized at location A. MATIC BLOCKER IMPRESSION: 1. Increased FDG uptake associated with consolidation throughout the right midd le lobe with suggestion of a likely partially cystic perihilar mass at the cent ral right middle lobe and associated with a relatively rapidly enlarging comple x cystic mass situated along the lateral right major fissure.. Differential wou ld include cavitary pneumonia is centrally necrotic malignancy. Given the progr ession of the lesion along the major fissure would favor the former. Correlate clinically and could consider bronchoscopy for evaluation of the perihilar righ t middle lobe mass which appears to occlude the medial segmental bronchus. 2. Multiple pulmonary nodules in the lingula largest measuring 11 x 7 mm also w ith increased FDG uptake and would also favor an infectious over malignant etio logy. Would consider 3 month follow-up chest CT following appropriate course of treatment for pneumonia. 3. Mild FDG avid right hilar and mediastinal lymphadenopathy which could be nerissa ctive or metastatic. 4. Diffuse body wall edema and small amount of ascites in the abdomen and pelvi s.
[2025-02-22 14:21] LABS: Hematocrit 37.8 % (37.0-47.0); Hemoglobin 11.6 g/dL (12.0-15.0); Mean Corpuscular HGB Conc 30.7 g/dl (32-36); Mean Corpuscular Hemoglobin 29.1 pg (26-34); Mean Corpuscular Volume 95.0 fl (80-100); Platelet Count Result 348 k/mm3 (150-375); Red Blood Count 3.98 M/mm3 (4.2-5.4); White Blood Count 10.0 K/mm3 (4.5-10.0)
[2025-02-22 14:23] LABS: Alanine Aminotransferase 17 U/L (6-35); Albumin Level 3.3 g/dL (3.5-5.1); Alkaline Phosphatase 112 U/L (38-126); Anion Gap 5 mmol/L (4-12); Aspartate Amino Transferase 29 U/L (14-36); Bilirubin,Total 0.4 mg/dL (0.2-1.3); Blood Urea Nitrogen 16 mg/dL (7-17); Calcium 8.1 mg/dL (8.4-10.2); Carbon Dioxide 30 mmol/L (22-30); Chloride 99 mmol/L (98-107); Estimated CRCL calculation 44 ml/min; Estimated Glomerular Filt Rate > 60; Glucose 83 mg/dL (65-110); Potassium 3.7 mmol/L (3.4-5.0); Sodium 134 mmol/L (137-145); Total Protein 7.3 g/dL (6.3-8.2)
--- OUTSIDE RECORDS SUMMARY | 2025-02-22 19:26 | XMS_ITS | Encounter Summary ---
Author Organization [facility] Address 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
--- OUTSIDE RECORDS SUMMARY | 2025-02-22 19:26 | XMS_ITS | Clinical Summary ---
Author Organization [facility] Address [address] [place] [address] Phone Care Team Providers Care Special Effects Specialist Name Role Phone Roxann Albarran DO Primary Care Provider [phone] Selina Browning MD Unavailable [phone] Jeni Fabian MD Unavailable [phone] Allergies Active Allergy Reactions Criticality Noted Date Comments Acyclovir Other (See comments) ,Stomach upset,Nausea & Vomiting Low 09/27/2017 Acid reflux Wheat Stomach upset,Headache Low 12/17/2022 Medications vit O-dapyklhhak-cy oflavonoids 500-100-100 mg tabletIndicatio ns:supplement Take 1 tablet by mouth every morning Active levothyroxine (SYNTHROID) 50 mcg tabletIndicatio ns:hypothyroidi sm Take 1 tablet (50 mcg total) by mouth setup technician before breakfast 4 Active dorzolamide-kellen oloL (Cosopt) 22.3-6.8 mg/mL ophthalmic solution Administer 1 drop into the right eye 2 (two) times a day 10 mL 11 5 Active furosemide (LASIX) 20 mg tablet Take 1 tablet (20 mg total) by mouth daily 90 tablet 3 5 Active Additional Information Patient taking differently:20 mg oralEvery morning, Indications: Edema, Informant: Self, Reported on 01/15/2025 losartan (COZAAR) 25 mg tablet Take 0.5 tablets (12.5 mg total) by mouth daily 45 tablet 3 5 Active Gemtesa 75 mg tabletIndicatio ns:Urinary Urgency Take 75 mg by mouth as needed 5 Active prednisoLONE acetate (PRED FORTE) 1 % ophthalmic suspension Administer 1 drop into the right eye daily 5 mL 3 5 Active MELATONIN ORALIndications :sleep Take 1 tablet by mouth nightly as needed Active erythromycin (ILOTYCIN) ophthalmic ointment Apply to right eye 3 (three) times a day 3.5 g 1 5 Active Active Problems Problem Noted Date Diagnosed Date Decreased peripheral vision, right 11/21/2024 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 Assessment & Plan (12/09/2023 [...] eye, severe stage 11/26/2019 Assessment & Plan (02/05/2025 11:33 AM CDT): IOP is at goal Unable to sit for HVF today Plan virtual VF in 1 year Follow 6 months for IOP check Assessment & Plan (07/28/2024 11:46 AM CDT): S/p Molteno OD 12/2022 HVF with possible progression but OCT stable OU IOP excellent on cosopt BID OD Return 4-5 months DFEx Assessment & Plan (05/05/2024 10:43 AM NANOSYSTEMS ENGINEER): S/p Molteno OD 12/2022 HVF with possible [...] (HVF)/RNFL Assessment & Plan (06/04/2023 10:00 AM NANOSYSTEMS ENGINEER): IOP s/p Molteno OD doing well Wants to try off cosopt Trial off cosopt IOP check in 2 months Assessment & Plan (02/22/2023 10:23 AM NANOSYSTEMS ENGINEER): POM#2 s/p Molteno OD - IOP improved, [...] planned Assessment & Plan (06/08/2022 4:26 PM NANOSYSTEMS ENGINEER): OD with progression on HVF today IOP [...] concerns Assessment & Plan (06/21/2020 10:30 AM NANOSYSTEMS ENGINEER): F/u Dr. Browning as planned Assessment & [...] 04/28/2018 Assessment & Plan (06/04/2023 10:01 AM NANOSYSTEMS ENGINEER): Keep PF daily OD Assessment & Plan (07/31/2022 11:28 AM CDT): Stable Cont PF OD qd F/u me prn Assessment & Plan (07/31/2021 12:11 PM CDT): Clear graft PF OD qd RTC me 1 yr Assessment & Plan (08/19/2020 2:37 PM CDT): Continue PF once daily OD Assessment & Plan (06/21/2020 10:31 AM NANOSYSTEMS ENGINEER): Clear graft PF OD qd RTC me 1 yr Assessment & Plan (11/26/2019 5:00 PM CDT): H/o DSEK OD, clear graft stable Assessment & Plan (06/15/2019 12:23 PM NANOSYSTEMS ENGINEER): Graft clear, pt has some subjective vision changes HVF today with mild nonspecific changes Repeat HVF in 1 year Pred Forte OD q.day Assessment & Plan (06/14/2018 2:40 PM NANOSYSTEMS ENGINEER): Stable Pred Forte OD q.day Sensory hearing [...] neoplasm of iris 10/05/2017 Assessment & Plan (12/07/2024 3:30 PM CDT): History of Iris mass being monitored with imaging and UBM at 4 oc in the right eye Areas of heme noted last exam, that has been present on previous photos There is stable on hemorrhage vs blood vessel today, no worse than prior slit lamp photos. UBM size is overall consistent with previous measurements Continue to monitor every 6 months Orders: Slit Lamp Photography - OD - Right Eye UBM Immersion 39901 - OD - Right Eye Assessment & Plan (08/10/2024 10:13 AM CDT): Remains stable, has been present for many years. There is an area of heme that wasn't seen last time. There are some similar areas of heme though if we look back at further images from [id number]. Recommend observation. For now will shorten f/u and notify Dr. Fabian. Discussed with patient may lengthen follow-up pending discussion with him. Assessment & Plan (07/28/2024 11:47 AM CDT): Small pinpoint area of heme within lesion. Otherwise appears stable. Continue following with Retina Assessment & Plan (08/19/2023 1:33 PM CDT): [...] prn Assessment & Plan (06/08/2022 4:25 PM NANOSYSTEMS ENGINEER): Follows with Dr. Fabian Assessment & Plan [...] time. Assessment & Plan (06/21/2020 10:28 AM NANOSYSTEMS ENGINEER): No change from previous photoo Keep appt [...] time. Assessment & Plan (06/15/2019 1:20 PM NANOSYSTEMS ENGINEER): Images from the original note were not [...] way. Assessment & Plan (06/14/2018 2:41 PM NANOSYSTEMS ENGINEER): Stable today, recommend observation. Return in 1 year Assessment & Plan (05/19/2018 12:12 PM NANOSYSTEMS ENGINEER): Stable today, recommend observation. 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 RTC 9-12 months. Pseudophakia, both eyes 10/05/2017 Assessment & Plan (12/07/2022 2:31 PM CDT): Stable OU Assessment & Plan (06/08/2022 4:25 PM NANOSYSTEMS ENGINEER): Stable both eyes Assessment & Plan (11/26/2019 5:01 PM CDT): Stable OU, s/p YAG OD Assessment & Plan (01/18/2019 10:03 AM CDT): Stable today, recommend observation. Assessment & Plan (04/28/2018 11:49 AM NANOSYSTEMS ENGINEER): stable Basal cell carcinoma (BCC) of upper lip 06/02/19 18 Squamous cell carcinoma in situ (SCCIS) of skin 06/02/2017 Lentigo 10/26/2016 Actinic keratosis 08/28/2014 Benign neoplasm of soft tissues 08/28/2014 Sensorineural hearing loss (SNHL) of both ears 1 05/27/2013 Encounters Date Type Department Care Team Description 02/05/2025 10:45 AM CDT Office Visit [facility] Medicine Ophthalmology [address] [place] [phone] Selina Browning MD Primary open angle glaucoma (POAG) of right eye, severe stage (Primary Dx) 02/05/2025 10:20 AM CDT Imaging Exam [facility] Medicine Ophthalmology [address] [place] [address] [place] [phone] Primary open angle glaucoma (POAG) of right eye, severe stage 02/05/2025 10:00 AM CDT Imaging Exam [facility] Medicine Ophthalmology [address] [facility] [address] [place] [phone] Primary open angle glaucoma (POAG) of right eye, severe stage 01/22/2025 11:15 AM CDT Office Visit [facility] Ophthalmology [address] [facility], [address] [place] [phone] Humphrey Tucker MD Myogenic ptosis of right eyelid (Primary Dx) 01/15/2025 7:30 AM CDT - 01/15/2025 8:30 AM CDT Surgery [facility] Operating Room [address] [place] [phone] Humphrey Tucker MD RIGHT EXTERNAL PTOSIS REPAIR . [28770 (CPT )] 01/15/2025 7:28 AM CDT Anesthesia Event [facility] Operating Room [address] [place] [phone] Riley Yee MD Helsten, Daniel Luke, MD 01/15/2025 6:13 AM CDT - 01/15/2025 8:47 AM CDT Hospital Encounter [facility] Operating Room [address] [place] [phone] Humphrey Tucker MD Myogenic ptosis of right eyelid [H02.421] (Primary Dx); Decreased peripheral vision, right [H53.451] Discharge Disposition: Discharge to home or self care 01/12/2025 Telephone [facility] Medicine Ophthalmology [address] [place] [address] Humphrey Tucker MD 01/12/2025 Documentation [facility] Medicine Ophthalmology [address] [facility] [address] [place] [address] Humphrey Tucker MD Pre Cert 01/12/2025 Telephone [facility] Medicine Ophthalmology [address] [place] [address] Humphrey Tucker MD 01/11/2025 Telephone [facility] Medicine Ophthalmology [address] [facility] [address] [place] [address] Humphrey Tucker MD 12/14/2024 Telephone [facility] Medicine Ophthalmology [address] [place] [address] Selina Browning MD Med Refill 12/07/2024 1:50 PM CDT Office Visit [facility] Ophthalmology [address] [facility] 6th [place] [address] Jeni Fabian MD 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 Ward), unknown date CATARACT EXTRACTION W/ INTRA OCULAR LENS IMPLANT, BILATERAL Bilateral Dr. Ward, over 10 years ago HYSTERECTOMY over 20 years ago ROTATOR CUFF REPAIR Right between [id number] ESOPHAGOGASTRODUODENOSCOPY 04/19/2018 - 05/19/2018 EYE SURGERY 05/19/2018 Right YAG CAP OD (Dr. Ward) GLAUCOMA SURGERY 12/24/2022 Right Molteno valve implantation (Nallely / Jenny) CARDIAC CATHETERIZATION 05/20/2023 - 06/17/2023 Left SINUS SURGERY Right over 20 years ago COLONOSCOPY Last one was around 2021 BLEPHAROPTOSIS REPAIR 01/15/2025 Eye/Right Procedure: RIGHT EXTERNAL PTOSIS REPAIR .; Surgeon: Humphrey Tucker MD; Location: [facility]PERATING [facility]; Service: Ophthalmology; Laterality: Right; Medical History Medical History Date Comments Personal history of diseases of skin or subcutaneous tissue History of actinic keratosis - (Added by TW Conv) BCC (basal cell carcinoma of skin) Benign neoplasm of iris, right F adrián w/ Dr. 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 Britney yeh Status post corneal transplant D SEK OD Primary open angle glaucoma (POAG) of right eye, severe stage Follows w/ Dr. Nallely CRAFT (hard of hearing) Family History Medical History Relation Name Comments Stroke Brother Heart disease Father Family history of cardiac disorder - (Added by TW Conv) Heart failure Father No Known Problems Mother Anesthesia problems Neg Hx Glaucoma Neg Hx Macular degeneration Neg Hx Relation Name Status Comments Brother Father Mother Social History Tobacco Use Types Packs/Day Years Used Date Smoking Tobacco: Former Cigarettes 0.2 7 1 8 - 1964 Passive Smoke Exposure: Past Smokeless Tobacco: Never Tobacco Cessation:Counseling Given: Not Answered Alcohol Use Standard Drinks/Week Comments Yes 0 (1 standard drink = 0.6 oz pur e alcohol) PHQ-2 Answer Date Recorded PHQ-2 Total Score (If total score is 3 or more points, staff should administer the PHQ-9) 0 07/07/2022 AUDIT-C Answer Date Recorded Q1: How often do you have a drink containing alc ohol? Monthly or less 01/15/2025 Q2: How many drinks containi ng alcohol do you have on a typical day when you are drinking? 1 or 2 01/15/2025 Q3: How often do you have si x or more drinks on one occasion? Never 01/15/2025 Personal Safety Answer Date Recorded Have you ever been in or are you currently in a harmful physical or emotional relationship or is someone making you feel afraid or unsafe? Denies 01/15/2025 Comments No Sex and Gender Information Value Date Recorded Sex Assigned at Not on file Legal Sex Female 6:45 PM NANOSYSTEMS ENGINEER Gender Identity Not on file Sexual Orientation Not on file Last Filed Vital Signs Vital Sign Reading Time Taken Comments Blood Pressure 146/67 01/15/2025 8:35 AM CDT Pulse 56 01/15/2025 8:35 AM CDT Temperature 36.3 C (97.3 F) 01/15/2025 8:13 AM CDT Respiratory Rate 21 01/15/2025 8:35 AM CDT Oxygen Saturation 95% 01/15/2025 8:35 AM CDT Inhaled Oxygen Concentration - - Weight 43.6 kg (96 lb 3.2 oz) 01/15/2025 6:36 AM CDT Height 165.1 cm (5' 5) 01/15/2025 6:36 AM CDT Body Mass Index 16.01 01/15/2025 6:36 AM CDT Plan of Treatment Health Maintenance Due Date Last Done Comments Osteoporosis Screening-Bone Density Scan 1935 DTaP/Tdap/Td Vaccine (1 - Tdap) 12/19/1946 Hepatitis B Screening 12/19/1953 Pneumococcal vaccine 65+ (1 of 2 - PCV) 12/19/1954 Zoster Vaccine (1 of 2) 12/19/1985 Depression Screening 07/08/2023 07/07/2022, 07/08/19 23 Well Visit 65+ 07/08/2023 07/07/2022, 06/17, 05/14/2020 Covid-19 Vaccine ( - season) 2024 02/23/2022, 04/15/2021, 11/01/2020 Influenza Vaccine (#1) 2024 Fall Risk Assessment 01/15/2026 01/15/2025, 07/08/19 23 Medical Devices Implanted Type Area Rn Call Center Device Identifier Shelf Expiration Date Model / Serial / Lot Neolane Tutoplast Iopatch 1x.6cm Dehydrate Processed Allograft Graft Soft [id number] - [id number] - [id number] Implanted:Qty : 1 on 12/24/2022 by Selina Browning MD at [facility] Other - see comments [employer] [id number] 06/17/2027 [id number] / [id number] / [id number] [employer] Implant Molteno Gen 3-185 Ss-185 - [id number] - [id number] Implanted:Qty : 1 on 12/24/2022 by Selina Browning MD at [facility] Tube Right: Eye [employer] [id number] 01/13/2027 SS-185 / [id number] / [id number] Procedures Procedure Name Priority Date/Time Associated Diagnosis Comments OCT, OPTIC NERVE - OU - BOTH EYES Routine 02/05/2025 11:02 AM CDT Primary open angle glaucoma (POAG) of right eye, severe stage SANCHEZ VISUAL FIELD - OU - BOTH EYES Routine 02/05/2025 11:02 AM CDT Primary open angle glaucoma (POAG) of right eye, severe stage NE RPR BLEPHAROPTOSIS LEVATOR RESCJ/ADVMNT XTRNL 01/15/2025 7:30 AM CDT Decreased peripheral vision, right Myogenic ptosis of right eyelid SLIT LAMP PHOTOGRAPHY - OD - RIGHT EYE Routine 12/07/2024 3:28 PM CDT 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 Average RNFL thickness 60 micrometers. Left Eye Reliability was borderline. Average RNFL thickness 78 micrometers. Notes Stable Selina Browning MD OPHTH TOMOGRAPHY Final Result * Sanchez Visual Field - OU - Both Eyes (02/05/2025 11:02 AM CDT) Pattern Deviation OS 7.85 dB CONTINUUM Pattern Deviation OD 8.15 dB CONTINUUM Mean Deviation OS -13.88 dB CONTINUUM Mean Deviation OD -24.24 dB CONTINUUM Anatomical Region Laterality Modality Head Other Narrative 02/05/2025 11:32 AM CDT Right Eye Fixation was poor. Cooperation was poor. Reliability was poor. Mean Deviation was -24.24 dB. Pattern Deviation was 8.15 dB. Left Eye Fixation was poor. Cooperation was poor. Reliability was poor. Mean Deviation was -13.88 dB. Pattern Deviation was 7.85 dB. Notes Poor quality today Selina Browning MD OPH VISUAL FIELD Final Resu lt * Slit Lamp Photography - OD - Right Eye (12/07/2024 3:28 PM CDT) Anatomical Region Laterality Modality Head Other Narrative 12/07/2024 3:28 PM CDT Quality was good. Progression has been stable. Notes Stable iris mass infranasal at 4 oc OD, with stable hemorrhage . Result [facility] Nichole Coleman MD OPH PHOTOGRAPHY Final Result * UBM Immersion 18077 - OD - Right Eye (12/07/2024 3:28 PM CDT) Height 0.81 millimeters CONTINUUM Longitude 1.76 millimeters CONTINUUM Anatomical Region Laterality Modality Head Ultrasound Narrative 12/07/2024 3:28 PM CDT Quality was good. Findings included mass. Lesion size was unchanged. 1.76 millimeters. 0.81 millimeters. Notes No change Nichole Coleman MD OPH ULTRASOUND Final Result from Last 3 Months Insurance T MEDICARE MEDICARE MUTUAL [facility] MEDICARE [facility] Address: [address] [address] [place] [address] [employer] MEDICARE [facility] Address: [address] [place] [address] [facility] Address: [facility] [id number] [place] [phone] Advance Directives For more information, please contact: [phone] Documents on File Type Date Recorded Patient Gis Manager Expl anation ADVANCE DIRECTIVE 12/24/2022 9:19 AM Power of Factory Helper-Medical * Full Code (Latest Code Status on File) Date Activated Date Inactivated Comments 06/09/2023 9:53 AM 06/09/2023 5:15 PM * Full Code Date Activated Date Inactivated Comments 05/17/2018 11:10 AM 05/17/2018 4:31 PM Care Teams Special Effects Specialist Relationship Specialty Start Date End Date Roxann Albarran DO PCP - General Family Medicine 12/07/22 Selina Browning MD [address] [address] Consulting Physician Glaucoma Ophthalmology 11/27/19 Jeni Fabian MD [address] [facility], [address] [place] [address] Consulting Physician Retina Ophthalmology 10/07/17
--- OUTSIDE RECORDS SUMMARY | 2025-02-22 19:26 | XMS_ITS | Encounter Summary ---
Author Organization [facility] Address [address] 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
--- OUTSIDE RECORDS SUMMARY | 2025-02-22 19:26 | XMS_ITS | Encounter Summary ---
Author Organization [facility] Address [address] 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 [address] [place] [address] PCP - General Internal Medicine 11/14/13 documented as of this encounter
--- OUTSIDE RECORDS SUMMARY | 2025-02-22 19:26 | XMS_ITS | Encounter Summary ---
Author Organization [facility] Address [address] 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
--- OUTSIDE RECORDS SUMMARY | 2025-02-22 19:26 | XMS_ITS | Encounter Summary ---
Author Organization [facility] Address 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
--- OUTSIDE RECORDS SUMMARY | 2025-02-22 19:26 | XMS_ITS | Clinical Summary ---
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
--- OUTSIDE RECORDS SUMMARY | 2025-02-22 19:26 | XMS_ITS | Encounter Summary ---
Author Organization [facility] Address 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
--- OUTSIDE RECORDS SUMMARY | 2025-02-22 19:26 | XMS_ITS | Encounter Summary ---
Author Organization [facility] Address 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
--- OUTSIDE RECORDS SUMMARY | 2025-02-22 19:26 | XMS_ITS | Encounter Summary ---
Author Organization [facility] Address 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
--- OUTSIDE RECORDS SUMMARY | 2025-02-22 19:26 | XMS_ITS | Encounter Summary ---
Author Organization [facility] Address [address] [facility] [address] 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
--- OUTSIDE RECORDS SUMMARY | 2025-02-22 19:26 | XMS_ITS | Encounter Summary ---
Author Organization [facility] Address 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
--- OUTSIDE RECORDS SUMMARY | 2025-02-22 19:26 | XMS_ITS ---
Author Organization [facility] Address [address] [place] [address] Phone Care Team Providers Care Solvent Mixer Name Role Phone Roxann Albarran DO Primary Care Provider [phone] Selina Browning MD Unavailable Jeni Fabian MD Unavailable [phone] Active Problems Problem Noted Date Diagnosed Date [...] DFEx Assessment & Plan (05/05/2024 10:43 AM CAR RESTORER): S/p Molteno OD 12/2022 HVF with possible [...] (HVF)/RNFL Assessment & Plan (06/04/2023 10:00 AM CAR RESTORER): IOP s/p Molteno OD doing well Wants to try off cosopt Trial off cosopt IOP check in 2 months Assessment & Plan (02/22/2023 10:23 AM CAR RESTORER): POM#2 s/p Molteno OD - IOP improved, [...] planned Assessment & Plan (06/08/2022 4:26 PM CAR RESTORER): OD with progression on HVF today IOP [...] concerns Assessment & Plan (06/21/2020 10:30 AM CAR RESTORER): F/u Dr. Browning as planned Assessment & [...] 04/28/2018 Assessment & Plan (06/04/2023 10:01 AM CAR RESTORER): Keep PF daily OD Assessment & Plan (07/31/2022 11:28 AM CDT): Stable Cont PF OD qd F/u me prn Assessment & Plan (07/31/2021 12:11 PM CDT): Clear graft PF OD qd RTC me 1 yr Assessment & Plan (08/19/2020 2:37 PM CDT): Continue PF once daily OD Assessment & Plan (06/21/2020 10:31 AM CAR RESTORER): Clear graft PF OD qd RTC me 1 yr Assessment & Plan (11/26/2019 5:00 PM CDT): H/o DSEK OD, clear graft stable Assessment & Plan (06/15/2019 12:23 PM CAR RESTORER): Graft clear, pt has some subjective vision changes HVF today with mild nonspecific changes Repeat HVF in 1 year Pred Forte OD q.day Assessment & Plan (06/14/2018 2:40 PM CAR RESTORER): Stable Pred Forte OD q.day Sensory hearing [...] - OD - Right Eye [employer] Immersion [address]374 - OD - Right Eye Assessment & Plan (08/10/2024 10:13 AM CDT): Remains stable, has been present for many years. There is an area of heme that wasn't seen last time. There are some similar areas of heme though if we look back at further images from [id number]. Recommend observation. For now will shorten f/u [...] prn Assessment & Plan (06/08/2022 4:25 PM CAR RESTORER): Follows with Dr. Fabian Assessment & Plan [...] time. Assessment & Plan (06/21/2020 10:28 AM CAR RESTORER): No change from previous photoo Keep appt [...] time. Assessment & Plan (06/15/2019 1:20 PM CAR RESTORER): Images from the original note were not [...] way. Assessment & Plan (06/14/2018 2:41 PM CAR RESTORER): Stable today, recommend observation. Return in 1 year Assessment & Plan (05/19/2018 12:12 PM CAR RESTORER): Stable today, recommend observation. 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 RTC 9-12 months. Pseudophakia, both eyes 10/05/2017 Assessment & Plan (12/07/2022 2:31 PM CDT): Stable OU Assessment & Plan (06/08/2022 4:25 PM CAR RESTORER): Stable both eyes Assessment & Plan (11/26/2019 5:01 PM CDT): Stable OU, s/p YAG OD Assessment & Plan (01/18/2019 10:03 AM CDT): Stable today, recommend observation. Assessment & Plan (04/28/2018 11:49 AM CAR RESTORER): stable Basal cell carcinoma (BCC) of upper [...] Lifetime Dose Automatic Entry Manual Entr y Fluoro Time 3.3 minutes 0 minutes 3.3 minutes Air kerma at the reference point (Ka,r) 111 mGy 0 mGy 111 mGy DLP 1,066 mGycm 1,066 mGycm 0 mGycm DAP 6.51 Gy-cm2 0 Gy-cm2 6.51 Gy-cm2
== END 2025-02-22 12:03 | disposition home or self-care (01) ==
PROVIDERS: PCP Family Medicine; Visit Provider Family Medicine
DX: R91.8 Other nonspecific abnormal finding of lung field (principal); E78.5 Hyperlipidemia, unspecified; Z79.899 Other long term (current) drug therapy; D72.829 Elevated white blood cell count, unspecified; E83.51 Hypocalcemia
CPT/HCPCS: 36415; 78815; 80053; 85027; A9552